=== PATIENT | male | born 1945 | race Caucasian/White ===

== ENCOUNTER 2017-07-08 06:11 | Inpatient (IN) | payer MEDICARE ==
[~2017-07-08] VITALS: Ht 185.4 cm; Wt 79.9 kg
[2017-07-08] VITALS (13 sets, daily range): BP systolic 116–198; BP diastolic 79–101; PULSE 61–95; RESP 16–22; TEMP 96.7–98.6; O2SAT 91–97
[~2017-07-08 06:11] MED LIST: ALBU0.086 INH; ALBU6.7H INH; AMLO10 PO; DOXY100T PO; HYDR12.56 PO; LISI-366 PO; PRED20 PO; TERA2CAP3 PO; TOPR25TA2 PO; ZITHTAB6 PO
--- NOTE | 2017-07-08 06:29 | PD ---
HPI Chief Complaint: Respiratory Symptoms Time Seen by Provider: 06:24 Travel History International Travel<30 days: No Contact w/Intl Traveler<30days: No Traveled to known affect area: No History of Present Illness HPI The patient is a 71-year-old male with a history of bronchitis starting back in 2010. He did fairly well until June 18 when he is exposed to dust from the ground on a project he was working on. He does not smoke. He complains of increasing shortness of breath since 18 June. His primary care physician. Moore Zithromax and doxycycline without any relief. He has been using a Proventil HFA without any relief. He is been put on prednisone 20 mg orally every day without relief. He states he is getting worse. He denies any history of congestive heart failure. He denies any chest pain. PFSH Past Medical History Blood Disorders: No Cancer: No Cardiovascular Problems: Yes High Cholesterol: Yes Cerebrovascular Accident: Yes Diminished Hearing: No Endocrine: No Genitourinary: No Hypertension: Yes Immune Disorder: No Musculoskeletal: Yes Neurologic: Yes Psychiatric: No Respiratory: No ?: Not Past Surgical History AICD: No Joint Replacement: No Pacemaker: No Other Surgery: No Social History Alcohol Use: No Tobacco Use: Yes Substance Use: No Allergies-Medications (Allergen,Severity, Reaction): Coded Allergies: cephalexin (Verified Allergy, Severe, Anaphylaxis, 07/08/17) Reported Meds & Prescriptions Reported Meds & Active Scripts Active Reported Terazosin (Terazosin HCl) 2 Mg Cap 2 Mg PO HS Metoprolol Succinate ER 24 HR (Metoprolol Succinate) 50 Mg Tab 50 Mg PO DAILY Lisinopril 20 Mg Tab 20 Mg PO DAILY Amlodipine (Amlodipine Besylate) 10 Mg Tab 10 Mg PO DAILY Review of Systems Except as stated in HPI: all other systems reviewed are Neg Physical Exam Narrative GENERAL: The patient is alert, oriented 3 in moderate respiratory distress. His pulse is 93 and blood pressure 163/101 with oximetry 94% on 4 L nasal cannula. SKIN: Focused skin assessment warm/dry. HEAD: Atraumatic. Normocephalic. EYES: Pupils equal and round. No scleral icterus. No injection or drainage. ENT: No nasal bleeding or discharge. Mucous membranes pink and moist. NECK: Trachea midline. No JVD. CARDIOVASCULAR: Regular rate and rhythm. No murmur appreciated. RESPIRATORY: No accessory muscle use. Clear to auscultation. Breath sounds equal bilaterally. GASTROINTESTINAL: Abdomen soft, non-tender, nondistended. Hepatic and splenic margins not palpable. MUSCULOSKELETAL: No obvious deformities. No clubbing. No cyanosis. No edema. NEUROLOGICAL: Awake and alert. No obvious cranial nerve deficits. Motor grossly within normal limits. Normal speech. PSYCHIATRIC: Appropriate mood and affect; insight and judgment normal. Data Data Last Documented VS Vital Signs Date Time Temp Pulse Resp B/P (MAP) Pulse Ox O2 Delivery O2 Flow Rate FiO2 07/08/17 06:57 22 94 Aerosol Mask 07/08/17 06:53 98.0 89 186/97 (126) 07/08/17 06:35 4.00 Orders Orders Complete Blood Count With Diff (07/08/17 06:24) Comprehensive Metabolic Panel (07/08/17 06:24) B-Type Natriuretic Peptide (07/08/17 06:24) Magnesium (Mg) (07/08/17 06:24) Troponin I (07/08/17 06:24) Arterial Blood Gas (Abg) (07/08/17 06:24) Urinalysis - C+S If Indicated (07/08/17 06:24) Influenzae A/B Antigen (07/08/17 06:24) Iv Access Insert/Monitor (07/08/17 06:24) Ecg Monitoring (07/08/17 06:24) Oximetry (07/08/17 06:24) Oxygen Administration (07/08/17 06:24) Chest, Pa & Lat (07/08/17 06:24) Sodium Chloride 0.9% Flush (Ns Flush) (07/08/17 06:30) Methylprednisolone So Succ Inj (Solumedr (07/08/17 06:30) Albuterol-Ipratropium Neb (Duoneb Neb) (07/08/17 06:30) Labs Laboratory Tests Test 07/08/17 06:15 07/08/17 06:43 White Blood Count 9.3 TH/MM3 Red Blood Count 4.80 MIL/MM3 Hemoglobin 14.5 GM/DL Hematocrit 44.7 % Mean Corpuscular Volume 93.0 FL Mean Corpuscular Hemoglobin 30.2 PG Mean Corpuscular Hemoglobin Concent 32.5 % Red Cell Distribution Width 13.1 % Platelet Count 161 TH/MM3 Mean Platelet Volume 7.8 FL Neutrophils (%) (Auto) 79.7 % Lymphocytes (%) (Auto) 14.0 % Monocytes (%) (Auto) 5.8 % Eosinophils (%) (Auto) 0.0 % Basophils (%) (Auto) 0.5 % Neutrophils # (Auto) 7.5 TH/MM3 Lymphocytes # (Auto) 1.3 TH/MM3 Monocytes # (Auto) 0.5 TH/MM3 Eosinophils # (Auto) 0.0 TH/MM3 Basophils # (Auto) 0.0 TH/MM3 CBC Comment DIFF FINAL Differential Comment Blood Gas Puncture Site RT RADIAL Blood Gas Patient Temperature 98.6 Blood Gas HCO3 28 mmol/L Blood Gas Base Excess 5.1 mmol/L Blood Gas Oxygen Saturation 84 % Arterial Blood pH 7.52 Arterial Blood Partial Pressure CO2 34 mmHG Arterial Blood Partial Pressure O2 53 mmHG Arterial Blood Oxygen Content 16.3 Vol % Arterial Blood Carboxyhemoglobin 2.4 % Arterial Blood Methemoglobin 1.1 % Blood Gas Hemoglobin 13.7 G/DL Oxygen Delivery Device ROOM AIR Blood Gas Inspired Oxygen 21 % [facility] Medical Decision Making Medical Screen Exam Complete: Yes Emergency Medical Condition: Yes Medical Record Reviewed: Yes Interpretation(s) The patient's blood gases show a hypoxemia. The influenza A/B antigen is negative for flu a and flu B antigen. Differential Diagnosis Bronchitis, hypoxemia, pneumonia, Narrative Course The patient is transferred to Dr. Rand at this time. The patient will be admitted for hypoxemia. The chest x-ray is not back yet. Kemal Stovall MD Jul 08, 2017 06:29
[2017-07-08] MEDS ORDERED: METO1TAB9 PO (06:30)
[2017-07-08] MEDS ORDERED: LISI-515 PO (06:30)
[2017-07-08] MEDS ORDERED: methylPREDNISolone SOD SUCC 125 MG/2 ML VIAL IV PUSH ONE (06:30)
[2017-07-08] MEDS ORDERED: TERA2CAP3 PO (06:30)
[2017-07-08] MEDS ORDERED: SODIUM CHLORIDE 0.9% FLUSH 10 ML FLUSH IVF PRN (06:30)
[2017-07-08] MEDS ORDERED: AMLO10TA2 PO (06:30)
[2017-07-08] MEDS: RESP: ALBUTEROL 2.5 MG/IPRATROPIUM 0.5 MG NEB (SCH) INH ×5 (06:33→19:45)
[2017-07-08 07:10] LABS: AUTOMATED NEUTROPHIL # 7.5 TH/MM3 (1.8-7.7); BASOPHIL % 0.5 % (0.0-2.0); HEMATOCRIT 44.7 % (39.0-51.0); HEMOGLOBIN 14.5 GM/DL (13.0-17.0); LYMPHOCYTE # 1.3 TH/MM3 (1.0-4.8); MEAN CORPUSCULAR HEMOGLOBIN 30.2 PG (27.0-34.0); MEAN CORPUSCULAR HGB CONC 32.5 % (32.0-36.0); MEAN PLATELET VOLUME 7.8 FL (7.0-11.0); MONO % 5.8 % (0.0-8.0); MONOCYTE # 0.5 TH/MM3 (0-0.9); NEUT % 79.7 % (16.0-70.0); PLATELET COUNT 161 TH/MM3 (150-450); RED CELL DISTRIBUTION WIDTH 13.1 % (11.6-17.2); WHITE BLOOD COUNT 9.3 TH/MM3 (4.0-11.0)
[2017-07-08 07:17] LABS: CHLORIDE 106 MEQ/L (98-107); SODIUM (NA) 143 MEQ/L (136-145)
[2017-07-08 07:20] LABS: CALCIUM 8.8 MG/DL (8.5-10.1)
[2017-07-08 07:21] LABS: ALBUMIN 3.4 GM/DL (3.4-5.0); BICARBONATE 28.2 MEQ/L (21.0-32.0); BLOOD UREA NITROGEN 28 MG/DL (7-18); GLUCOSE,RANDOM 84 MG/DL (74-106); MAGNESIUM 2.2 MG/DL (1.5-2.5)
[2017-07-08 07:24] LABS: ALT (GPT) 29 U/L (12-78); AST (GOT) 42 U/L (15-37); GLOMERULAR FILTRATION RATE 60 ML/MIN (>89)
[2017-07-08 07:25] LABS: TOTAL BILIRUBIN ADULT 0.9 MG/DL (0.2-1.0); TOTAL PROTEIN 6.8 GM/DL (6.4-8.2)
[2017-07-08 07:26] LABS: ALKALINE PHOSPHATASE 78 U/L (45-117)
[2017-07-08 07:29] LABS: TROPONIN I 0.03 NG/ML (0.02-0.05)
--- NOTE | 2017-07-08 08:17 | RADRPT ---
EXAM DATE/TIME: 07/08/2017 06:29 [facility] COMPARISON: No previous studies available for comparison. INDICATIONS : Short of breath MEDICAL HISTORY : None. SURGICAL HISTORY : None. ENCOUNTER: Initial ACUITY: 1 week PAIN SCORE: 0/10 LOCATION: Bilateral chest FINDINGS: PA and lateral views of the chest. Focal 2 cm density in the left lung base seen only on the frontal view. The lungs are otherwise clear. Cardiomediastinal silhouette within normal limits. No evidence o f pleural effusion or pneumothorax. CONCLUSION: Faint nodular density left lung base. Recommend chest CT without contrast evaluate for pu lmonary nodule. Sean Luis MD on July 08, 2017 at 8:11 Board Certified Radiologist. This report was verified electronically.
--- NOTE | 2017-07-08 08:40 | PD ---
Physical Exam Date Seen by Provider: Jul 08, 2017 Time Seen by Provider: 07:00 Narrative Patient signed out to me at [address] Stovall, here because of all wheezing and shortness of breath, not doing well after full therapy by primary care doctor including antibiotics 2. He is having low saturations after being treated with 3 nebulizers and Solu-Medrol, plan was for him to be admitted. Laboratory Tests Test 07/08/17 06:15 07/08/17 06:43 07/08/17 08:25 Neutrophils (%) (Auto) 79.7 % (16.0-70.0) Blood Urea Nitrogen 28 MG/DL (7-18) Aspartate Amino Transf (AST/SGOT) 42 U/L (15-37) Estimat Glomerular Filtration Rate 60 ML/MIN (>89) B-Type Natriuretic Peptide 114 PG/ML (0-100) Blood Gas HCO3 28 mmol/L (22-26) Blood Gas Base Excess 5.1 mmol/L (-2-2) Blood Gas Oxygen Saturation 84 % (90-100) Arterial Blood pH 7.52 (7.380-7.420) Arterial Blood Partial Pressure CO2 34 mmHG (38-42) Arterial Blood Partial Pressure O2 53 mmHG (61-120) Last 24 hours Impressions Chest X-Ray 07/08/17623 Signed Impressions: Service Date/Time: Saturday, July 08, 2017 06:29 - CONCLUSION: Faint nodular density left lung base. Recommend chest CT without contrast evaluate for pulmonary nodule. Sean Luis MD Case was discussed with Dr. Ty for admission. Data Data Last Documented VS Vital Signs Date Time Temp Pulse Resp B/P (MAP) Pulse Ox O2 Delivery O2 Flow Rate FiO2 07/08/17 08:13 87 20 198/87 (124) 92 Nasal Cannula 07/08/17 08:11 4.00 07/08/17 06:53 98.0 Orders Orders Complete Blood Count With Diff (07/08/17 06:24) Comprehensive Metabolic Panel (07/08/17 06:24) B-Type Natriuretic Peptide (07/08/17 06:24) Magnesium (Mg) (07/08/17 06:24) Troponin I (07/08/17 06:24) Arterial Blood Gas (Abg) (07/08/17 06:24) Urinalysis - C+S If Indicated (07/08/17 06:24) Influenzae A/B Antigen (07/08/17 06:24) Iv Access Insert/Monitor (07/08/17 06:24) Ecg Monitoring (07/08/17 06:24) Oximetry (07/08/17 06:24) Oxygen Administration (07/08/17 06:24) Chest, Pa & Lat (07/08/17 06:24) Sodium Chloride 0.9% Flush (Ns Flush) (07/08/17 06:30) Methylprednisolone So Succ Inj (Solumedr (07/08/17 06:30) Albuterol-Ipratropium Neb (Duoneb Neb) (07/08/17 06:30) Ct Thorax/ Chest Wo Iv Contras (07/08/17 08:27) Admit Order (Ed Use Only) (07/08/17 08:38) Labs Laboratory Tests Test 07/08/17 06:15 07/08/17 06:43 07/08/17 08:25 White Blood Count 9.3 TH/MM3 Red Blood Count 4.80 MIL/MM3 Hemoglobin 14.5 GM/DL Hematocrit 44.7 % Mean Corpuscular Volume 93.0 FL Mean Corpuscular Hemoglobin 30.2 PG Mean Corpuscular Hemoglobin Concent 32.5 % Red Cell Distribution Width 13.1 % Platelet Count 161 TH/MM3 Mean Platelet Volume 7.8 FL Neutrophils (%) (Auto) 79.7 % Lymphocytes (%) (Auto) 14.0 % Monocytes (%) (Auto) 5.8 % Eosinophils (%) (Auto) 0.0 % Basophils (%) (Auto) 0.5 % Neutrophils # (Auto) 7.5 TH/MM3 Lymphocytes # (Auto) 1.3 TH/MM3 Monocytes # (Auto) 0.5 TH/MM3 Eosinophils # (Auto) 0.0 TH/MM3 Basophils # (Auto) 0.0 TH/MM3 CBC Comment DIFF FINAL Differential Comment Blood Urea Nitrogen 28 MG/DL Creatinine 1.20 MG/DL Random Glucose 84 MG/DL Total Protein 6.8 GM/DL Albumin 3.4 GM/DL Calcium Level 8.8 MG/DL Magnesium Level 2.2 MG/DL Alkaline Phosphatase 78 U/L Aspartate Amino Transf (AST/SGOT) 42 U/L Alanine Aminotransferase (ALT/SGPT) 29 U/L Total Bilirubin 0.9 MG/DL Sodium Level 143 MEQ/L Potassium Level 3.8 MEQ/L Chloride Level 106 MEQ/L Carbon Dioxide Level 28.2 MEQ/L Anion Gap 9 MEQ/L Estimat Glomerular Filtration Rate 60 ML/MIN Troponin I 0.03 NG/ML B-Type Natriuretic Peptide 114 PG/ML Blood Gas Puncture Site RT RADIAL Blood Gas Patient Temperature 98.6 Blood Gas HCO3 28 mmol/L Blood Gas Base Excess 5.1 mmol/L Blood Gas Oxygen Saturation 84 % Arterial Blood pH 7.52 Arterial Blood Partial Pressure CO2 34 mmHG Arterial Blood Partial Pressure O2 53 mmHG Arterial Blood Oxygen Content 16.3 Vol % Arterial Blood Carboxyhemoglobin 2.4 % Arterial Blood Methemoglobin 1.1 % Blood Gas Hemoglobin 13.7 G/DL Oxygen Delivery Device ROOM AIR Blood Gas Inspired Oxygen 21 % [facility] Medical Record Reviewed: Yes Supervised Visit with ROBERT: No Diagnosis Primary Impression: COPD exacerbation Admitting Information Admitting Physician Requests: Admit Zulay Carlos MD Jul 08, 2017 08:40
[2017-07-08 08:45] LABS: BILIRUBIN, URINE NEG (NEG); BLOOD, URINE SMALL (NEG); GLUCOSE,URINE NEG (NEG); KETONE, URINE NEG (NEG); NITRITE,URINE NEG (NEG); URINE LEUKOCYTE ESTERASE NEG (NEG)
[2017-07-08 09:00] LABS: SQUAMOUS EPITHELIAL CELL URINE 0-5 /hpf (0-5); URINE COLOR YELLOW (YELLW/STRAW)
[2017-07-08] MEDS ORDERED: methylPREDNISolone SOD SUCC 125 MG/2 ML VIAL IV PUSH SCH (09:00)
[2017-07-08] MEDS: ENOXAPARIN SODIUM 40 MG/0.4 ML SYRINGE SQ SCH (09:22)
[2017-07-08] MEDS: SODIUM CHLORIDE 0.9% FLUSH 10 ML FLUSH IV FLUSH SCH ×2 (09:23→20:45)
--- NOTE | 2017-07-08 09:28 | RADRPT ---
EXAM DATE/TIME: 07/08/2017 08:41 [facility] COMPARISON: CHEST PA & LAT, July 08, 2017, 6:29. INDICATIONS : Short of breath. Abnormal chest xray. RADIATION DOSE: 11.46 CTDIvol (mGy) MEDICAL HISTORY : Cerebrovascular disease. Hypertension. SURGICAL HISTORY : None. ENCOUNTER: Initial ACUITY: 1 week PAIN SCALE: 0/10 LOCATION: chest TECHNIQUE: Volumetric scanning of the chest was performed. Using automated exposure control and adjustment of t he mA and/or kV according to patient size, radiation dose was kept as low as reasonably achievable to obtain optimal diagnostic quality images. DICOM format image data is available electronically for r eview and comparison. Follow-up recommendations for detected pulmonary nodules are based at a minimum on nodule size and pa tient risk factors according to Fleischner Society Guidelines. FINDINGS: LUNGS: Moderate severity bilateral pulmonary parenchymal emphysema with upper lobe predominance. Bilateral i nferior lower lobe atelectasis. Linear opacity in the posterior left upper lobe indicating atelectasi s or scarring. Mild bronchiectasis in the lingula. No nodules or masses to correlate with the asymmet ry identified on chest x-ray in the left lower lung. This likely represented overlapping soft tissue and osseous densities PLEURAE: There is no pleural thickening or pleural effusion. MEDIASTINUM: Diffuse aortic calcification. Coronary artery calcification. Trace pericardial effusion. No enlarged lymph nodes. AXILLAE: Within normal limits. No lymphadenopathy. MUSCULOSKELETAL: Within normal limits for patient age. MISCELLANEOUS: The visualized upper abdominal organs demonstrate no acute abnormality. CONCLUSION: 1. No pulmonary nodule or mass in the region of chest x-ray asymmetry. Chest x-ray finding likely rep resented summation of osseous and chest wall soft tissue densities. 2. Moderate severity pulmonary emphysema. 3. Bilateral inferior lower lobe atelectasis. 4. Mild lingular bronchiectasis. Sean Luis MD on July 08, 2017 at 9:17 Board Certified Radiologist. This report was verified electronically.
[2017-07-08] MEDS: LEVOFLOXACIN 750 MG PREMIX INJ 150 ML IV SCH (10:29)
[2017-07-08] MEDS ORDERED: ZITHTAB PO (10:30)
[2017-07-08] MEDS ORDERED: PRED20 PO (10:30)
[2017-07-08] MEDS: methylPREDNISolone SOD SUCC 125 MG/2 ML VIAL IV PUSH SCH ×2 (12:22→17:51)
--- NOTE | 2017-07-08 15:09 | HHI.HP ---
HPI Service [facility] Primary Care Physician Weston Duggan M.D. Admission Diagnosis COPD exacerbation Diagnoses: (1) COPD exacerbation Diagnosis: Principal Chief Complaint: Shortness of breath Travel History International Travel<30 Days: No Contact w/Intl Traveler <30 Da: No Traveled to Known Affected Are: No History of Present Illness This is a pleasant 71-year-old male patient with a known medical history of hypercholesterolemia and hypertension who presented to the ED with complaints of worsening shortness of breath patient states that he has not been diagnosed with COPD but has admitted to history of bronchitis in 2000. He states that during the last few days he's been experiencing worsening shortness of breath during the past few days and called his PCP, Dr. Duggan, who prescribed him a Z-Franco, doxycycline, prednisone and Proventil inhaler which did not provide patient with any relief of shortness of breath. Patient also complains of nonproductive cough. He does state that the symptoms started roughly around Christmastime when he was working on a project at home and exposed to find best on the ground. Denies any recent fever, chills, chest pain, abdominal pain, nausea, vomiting, diarrhea, or dysuria. Review of Systems Constitutional: DENIES: Fever, Chills Eyes: DENIES: Blurred vision, Diplopia Respiratory: COMPLAINS OF: Cough, Sputum production, Shortness of breath Cardiovascular: DENIES: Chest pain, Palpitations Gastrointestinal: DENIES: Abdominal pain, Constipation, Diarrhea, Nausea, Vomiting Musculoskeletal: DENIES: Joint pain Hematologic/lymphatic: DENIES: Bruising Psychiatric: DENIES: Anxiety Except as stated in HPI: all other systems reviewed are Neg Past Family Social History Past Medical History Hyperlipidemia Hypertension Past Surgical History Hernia repair Reported Medications Active Reported Zithromax Z-Franco (Azithromycin) 250 Mg Dspk 250 Mg PO DIRECTED 500 MG (2 tabs) day 1, then 1 tab days 2-5. Prednisone 20 Mg Tab 20 Mg PO DIRECTED 40 MG twice a day x 3 days, then 20 MG daily x 3 days, then 10 MG daily x 3 days Terazosin (Terazosin HCl) 2 Mg Cap 2 Mg PO HS Metoprolol Succinate ER 24 HR (Metoprolol Succinate) 50 Mg Tab 50 Mg PO DAILY Lisinopril 20 Mg Tab 20 Mg PO DAILY Amlodipine (Amlodipine Besylate) 10 Mg Tab 10 Mg PO DAILY Allergies: Coded Allergies: cephalexin (Verified Allergy, Severe, Anaphylaxis, 07/08/17) Active Ordered Medications Current Medications Medications (Trade) Dose Ordered Sig/Maulik Route Start Time Stop Time Status Last Admin (NS Flush) 2 ml BID IV FLUSH 07/08/17 09:00 07/08/17 09:23 (NS Flush) 2 ml UNSCH PRN IV FLUSH 07/08/17 09:00 (Duoneb Neb) 1 ampule Q6HR WHILE AWAKE NEB INH 07/08/17 14:00 07/08/17 13:38 (Albuterol Neb) 2.5 mg Q2HR NEB PRN INH 07/08/17 09:00 Levofloxacin/ Dextrose 150 ml @ 100 mls/hr Q24H IV 07/08/17 11:00 07/08/17 10:29 (Lovenox Inj) 40 mg Q24H SQ 07/08/17 09:00 07/08/17 09:22 (SoluMEDROL INJ) 60 mg Q6HR IV PUSH 07/08/17 12:00 07/08/17 12:22 Family History He should denies any family medical history. Social History Patient does admit to smoking one cigar a week roughly all his life. Denies any alcohol or illicit drug use. Physical Exam Vital Signs Vital Signs Date Time Temp Pulse Resp B/P (MAP) Pulse Ox O2 Delivery O2 Flow Rate FiO2 07/08/17 14:00 98.0 92 16 159/85 (109) 91 07/08/17 12:52 07/08/17 12:26 88 16 159/79 (105) 93 Nasal Cannula 3.50 07/08/17 11:51 Nasal Cannula 3.50 07/08/17 10:50 98.3 92 18 161/82 (108) 94 Nasal Cannula 3.50 07/08/17 10:40 95 20 116/80 (92) 95 Nasal Cannula 4.00 07/08/17 08:57 90 20 179/87 (117) 93 Nasal Cannula 4.00 07/08/17 08:13 87 20 198/87 (124) 92 Nasal Cannula 07/08/17 08:11 92 Nasal Cannula 4.00 07/08/17 06:57 22 94 Aerosol Mask 07/08/17 06:53 98.0 89 22 186/97 (126) 94 Aerosol Mask 07/08/17 06:35 94 Nasal Cannula 4.00 07/08/17 06:34 94 4.00 07/08/17 06:30 84 24 94 4.00 07/08/17 06:18 97.8 93 22 163/101 (121) 97 Physical Exam GENERAL: This is a well-nourished, well-developed patient, on supplemental O2 with apparent shortness of breath with exertion. SKIN: No rashes, ecchymoses or lesions. Warm and dry. HEAD: Atraumatic. Normocephalic. EYES: Pupils equal round and reactive. Extraocular motions intact. No scleral icterus. No injection or drainage. ENT: Nose without bleeding, purulent drainage or septal hematoma. Throat without erythema, tonsillar hypertrophy or exudate. Uvula midline. Airway patent. NECK: Trachea midline. No JVD. Supple. CARDIOVASCULAR: Regular rate and rhythm without murmurs, gallops, or rubs. RESPIRATORY: Diffuse expiratory wheezing in posterior lung page. Breath sounds equal bilaterally. No rales, or rhonchi. GASTROINTESTINAL: Abdomen soft, non-tender, nondistended. No guarding. MUSCULOSKELETAL: Extremities without clubbing, cyanosis, or edema. No joint tenderness, effusion, or edema noted. NEUROLOGICAL: Awake and alert. Cranial nerves II through XII intact. Motor and sensory grossly within normal limits. Five out of 5 muscle strength in all muscle groups. Normal speech. Laboratory Laboratory Tests Test 07/08/17 06:15 07/08/17 06:43 07/08/17 08:25 White Blood Count 9.3 Red Blood Count 4.80 Hemoglobin 14.5 Hematocrit 44.7 Mean Corpuscular Volume 93.0 Mean Corpuscular Hemoglobin 30.2 Mean Corpuscular Hemoglobin Concent 32.5 Red Cell Distribution Width 13.1 Platelet Count 161 Mean Platelet Volume 7.8 Neutrophils (%) (Auto) 79.7 Lymphocytes (%) (Auto) 14.0 Monocytes (%) (Auto) 5.8 Eosinophils (%) (Auto) 0.0 Basophils (%) (Auto) 0.5 Neutrophils # (Auto) 7.5 Lymphocytes # (Auto) 1.3 Monocytes # (Auto) 0.5 Eosinophils # (Auto) 0.0 Basophils # (Auto) 0.0 CBC Comment DIFF FINAL Differential Comment Blood Urea Nitrogen 28 Creatinine 1.20 Random Glucose 84 Total Protein 6.8 Albumin 3.4 Calcium Level 8.8 Magnesium Level 2.2 Alkaline Phosphatase 78 Aspartate Amino Transf (AST/SGOT) 42 Alanine Aminotransferase (ALT/SGPT) 29 Total Bilirubin 0.9 Sodium Level 143 Potassium Level 3.8 Chloride Level 106 Carbon Dioxide Level 28.2 Anion Gap 9 Estimat Glomerular Filtration Rate 60 Troponin I 0.03 B-Type Natriuretic Peptide 114 Blood Gas Puncture Site RT RADIAL Blood Gas Patient Temperature 98.6 Blood Gas HCO3 28 Blood Gas Base Excess 5.1 Blood Gas Oxygen Saturation 84 Arterial Blood pH 7.52 Arterial Blood Partial Pressure CO2 34 Arterial Blood Partial Pressure O2 53 Arterial Blood Oxygen Content 16.3 Arterial Blood Carboxyhemoglobin 2.4 Arterial Blood Methemoglobin 1.1 Blood Gas Hemoglobin 13.7 Oxygen Delivery Device ROOM AIR Blood Gas Inspired Oxygen 21 Urine Collection Type CLEAN CATCH Urine Color YELLOW Urine Turbidity CLEAR Urine pH 6.0 Urine Specific [place] 1.026 Urine Protein TRACE Urine Glucose (UA) NEG Urine Ketones NEG Urine Occult Blood SMALL Urine Nitrite NEG Urine Bilirubin NEG Urine Leukocyte Esterase NEG Urine RBC 10-14 Urine Squamous Epithelial Cells 0-5 Microscopic Urinalysis Comment CULT NOT INDICATED Urine Collection Time 08:25 Date/Time Source Procedure Growth Status 07/08/17 07:00 Nasal Aspirate Influenza Types A,B Antigen (EMILIE) - Final NEGATIVE FOR FLU A AND B ANTIGEN.... Complete Result Diagram: 07/08/1761407/08/17614 Imaging Last Impressions Chest CT 07/08/17826 Signed Impressions: Service Date/Time: Saturday, July 08, 2017 08:41 - CONCLUSION: 1. No pulmonary nodule or mass in the region of chest x-ray asymmetry. Chest x-ray finding likely represented summation of osseous and chest wall soft tissue densities. 2. Moderate severity pulmonary emphysema. 3. Bilateral inferior lower lobe atelectasis. 4. Mild lingular bronchiectasis. Sean Luis MD Chest X-Ray 07/08/17 0624 Signed Impressions: Service Date/Time: Saturday, July 08, 2017 06:29 - CONCLUSION: Faint nodular density left lung base. Recommend chest CT without contrast evaluate for pulmonary nodule. Sean Luis MD Septic Shock Reassessment Septic shock perfusion: reassessment completed Caprini VTE Risk Assessment Caprini VTE Risk Assessment: Mod/High Risk (score >= 2) Caprini Risk Assessment Model Point Value = 1 Point Value = 2 Point Value = 3 Point Value = 5 Age 41-60 Minor surgery BMI > 25 kg/m2 Swollen legs Varicose veins or History of unexplained or recurrent spontaneous Oral contraceptives or hormone replacement Sepsis (< 1 month) Serious lung disease, including pneumonia (< 1 month) Abnormal pulmonary function Acute myocardial infarction Congestive heart failure (< 1 month) History of inflammatory bowel disease Medical patient at bed rest Age 61-74 Arthroscopic surgery Major open surgery (> 45 min) Laparoscopic surgery (> 45 min) Malignancy Confined to bed (> 72 hours) Immobilizing plaster cast Central venous access Age >= 75 History of VTE Family history of VTE Factor V Leiden Prothrombin [id number] Lupus anticoagulant Anticardiolipin antibodies Elevated serum homocysteine Heparin-induced thrombocytopenia Other congenital or acquired thrombophilia Stroke (< 1 month) Elective arthroplasty Hip, pelvis, or leg fracture Acute spinal cord injury (< 1 month) Prophylaxis Regimen Total Risk Factor Score Risk Level Prophylaxis Regimen 0-1 Low Early ambulation 2 Moderate Order ONE of the following: *Sequential Compression Device (SCD) *Heparin 5000 units SQ BID 3-4 Higher Order ONE of the following medications: *Heparin 5000 units SQ TID *Enoxaparin/Lovenox 40 mg SQ daily (WT < 150 kg, CrCl > 30 mL/min) *Enoxaparin/Lovenox 30 mg SQ daily (WT < 150 kg, CrCl > 10-29 mL/min) *Enoxaparin/Lovenox 30 mg SQ BID (WT < 150 kg, CrCl > 30 mL/min) AND/OR *Sequential Compression Device (SCD) 5 or more Highest Order ONE of the following medications: *Heparin 5000 units SQ TID (Preferred with Epidurals) *Enoxaparin/Lovenox 40 mg SQ daily (WT < 150 kg, CrCl > 30 mL/min) *Enoxaparin/Lovenox 30 mg SQ daily (WT < 150 kg, CrCl > 10-29 mL/min) *Enoxaparin/Lovenox 30 mg SQ BID (WT < 150 kg, CrCl > 30 mL/min) AND *Sequential Compression Device (SCD) Assessment and Plan Problem List: (1) COPD exacerbation ICD Code: J44.1 - Chronic obstructive pulmonary disease with (acute) exacerbation Status: Acute Plan: vs URI with hypoxia vs bronchiectasis Patient denies any history of COPD. CT chest reviewed showing no pulmonary nodule or mass in the region of chest x- ray asymmetry. Chest x-ray finding likely represented summation of osseous and chest wall soft tissue densities. Moderate severity pulmonary emphysema. Bilateral inferior lower lobe atelectasis. Mild lingular bronchiectasis Blood gas was performed on presentation, pH7.52;O2 sat 95%, pO2 53, pCo2 34, HCO3 28. Continue DuoNeb's scheduled and when necessary for wheezing. Continue IV Levaquin. Supplemental O2 as needed. Is currently on 2 L nasal cannula. Influenza negative. UA negative. CBC and BMP reviewed, essentially unremarkable. No signs of infection. Monitor fever. Supportive care. (2) Hypertension ICD Code: I10 - Essential (primary) hypertension Plan: BP elevated on presentation, systolic in the 180s. We'll continue home medications. Monitor BP trends. DVT prophylaxis: SCDs. Lovenox. Ashwini Weinberg Jul 08, 2017 15:09
[2017-07-08] MEDS ORDERED: ACETAMINOPHEN 325 MG TAB PO PRN (20:30)
[2017-07-08] MEDS: TERAZOSIN HCL 1 MG CAP PO SCH (20:44)
[2017-07-08] MEDS ORDERED: ACETAMINOPHEN/HYDROcodone 325 MG/5 MG TAB PO ONE (23:45)
[2017-07-09] VITALS (16 sets, daily range): BP systolic 104–184; BP diastolic 57–90; PULSE 71–108; RESP 15–32; TEMP 96.1–97.6; O2SAT 89–97
[2017-07-09] MEDS: SODIUM CHLORIDE 0.9% FLUSH 10 ML FLUSH IV FLUSH PRN ×2 (00:14→05:38)
[2017-07-09] MEDS: methylPREDNISolone SOD SUCC 125 MG/2 ML VIAL IV PUSH SCH ×4 (00:14→18:08)
[2017-07-09] MEDS: RESP: ALBUTEROL 2.5 MG/3 ML NEB (PRN) INH (06:29)
[2017-07-09] MEDS: RESP: ALBUTEROL 2.5 MG/IPRATROPIUM 0.5 MG NEB (SCH) INH ×3 (07:52→19:48)
[2017-07-09] MEDS ORDERED: PNEUMOCOCCAL POLYVALENT INJ 25 MCG/0.5 ML SYR IM ONE (10:00)
[2017-07-09] MEDS: LISINOPRIL 20 MG TAB PO SCH (10:19)
[2017-07-09] MEDS: ENOXAPARIN SODIUM 40 MG/0.4 ML SYRINGE SQ SCH (10:19)
[2017-07-09] MEDS: SODIUM CHLORIDE 0.9% FLUSH 10 ML FLUSH IV FLUSH SCH ×2 (10:20→21:25)
--- NOTE | 2017-07-09 11:54 | HHI.PR ---
Subjective Remarks Follow-up COPD exacerbation. Patient seen and examined, lying in bed on supplemental O2, 5 L nasal cannula. Patient states that he does feel a lot better today. Eating well, denies any abdominal pain, nausea or vomiting. Afebrile overnight. Denies any chest pain. Does admit to shortness of breath with exertion. Objective Vitals Vital Signs Date Time Temp Pulse Resp B/P (MAP) Pulse Ox O2 Delivery O2 Flow Rate FiO2 07/09/17 09:10 96.7 71 15 131/78 (95) 93 07/09/17 07:56 89 Nasal Cannula 4.50 07/09/17 07:50 97.1 102 20 167/87 (113) 91 07/09/17 05:30 164/90 (114) 184/90 (121) Automatic Cuff 07/09/17 04:26 07/08/17 23:24 97.4 79 16 195/88 (123) 94 07/08/17 21:44 20 07/08/17 20:59 96.7 61 20 171/83 (112) 91 07/08/17 19:45 94 Nasal Cannula 3.50 07/08/17 16:00 98.6 82 16 170/90 (116) 92 07/08/17 14:00 98.0 92 16 159/85 (109) 91 07/08/17 12:52 07/08/17 12:26 88 16 159/79 (105) 93 Nasal Cannula 3.50 I/O 07/08/17 07/08/17 07/08/17 07/09/17 07/09/17 07/09/17 07:00 15:00 23:00 07:00 15:00 23:00 Intake Total 390 ml 240 ml Output Total 400 ml Balance -10 ml 240 ml Intake Oral 240 ml 240 ml IV Total 150 ml Output Urine Total 400 ml # Voids 2 2 3 # Bowel Movements 0 0 Result Diagram: 07/08/1715 07/08/17614 Imaging Last Impressions Chest CT 07/08/1727 Signed Impressions: Service Date/Time: Saturday, July 08, 2017 08:41 - CONCLUSION: 1. No pulmonary nodule or mass in the region of chest x-ray asymmetry. Chest x-ray finding likely represented summation of osseous and chest wall soft tissue densities. 2. Moderate severity pulmonary emphysema. 3. Bilateral inferior lower lobe atelectasis. 4. Mild lingular bronchiectasis. Sean Luis MD Chest X-Ray 07/08/17 0624 Signed Impressions: Service Date/Time: Saturday, July 08, 2017 06:29 - CONCLUSION: Faint nodular density left lung base. Recommend chest CT without contrast evaluate for pulmonary nodule. Sean Luis MD Objective Remarks GENERAL: This is a well-nourished, well-developed patient, on supplemental O2 lying comfortably SKIN: No rashes, ecchymoses or lesions. Warm and dry. HEAD: Atraumatic. Normocephalic. EYES: Pupils equal round and reactive. Extraocular motions intact. No scleral icterus. No injection or drainage. ENT: Nose without bleeding, purulent drainage or septal hematoma. Throat without erythema, tonsillar hypertrophy or exudate. Uvula midline. Airway patent. NECK: Trachea midline. No JVD. Supple. CARDIOVASCULAR: Regular rate and rhythm without murmurs, gallops, or rubs. RESPIRATORY: Diffuse expiratory wheezing in posterior lung page, improved from yesterday. Breath sounds equal bilaterally. No rales, or rhonchi. GASTROINTESTINAL: Abdomen soft, non-tender, nondistended. No guarding. MUSCULOSKELETAL: Extremities without clubbing, cyanosis, or edema. No joint tenderness, effusion, or edema noted. NEUROLOGICAL: Awake and alert. Cranial nerves II through XII intact. Motor and sensory grossly within normal limits. Five out of 5 muscle strength in all muscle groups. Normal speech. A/P Problem List: (1) COPD exacerbation ICD Code: J44.1 - Chronic obstructive pulmonary disease with (acute) exacerbation Status: Acute Plan: With acute respiratory failure. vs URI with hypoxia vs bronchiectasis Patient denies any history of COPD. CT chest reviewed showing no pulmonary nodule or mass in the region of chest x- ray asymmetry. Chest x-ray finding likely represented summation of osseous and chest wall soft tissue densities. Moderate severity pulmonary emphysema. Bilateral inferior lower lobe atelectasis. Mild lingular bronchiectasis Blood gas was performed on presentation, pH7.52;O2 sat 95%, pO2 53, pCo2 34, HCO3 28. Continue DuoNeb's scheduled and when necessary for wheezing. Continue IV Levaquin. Supplemental O2 as needed. Is currently on 5 L nasal cannula. Influenza negative. UA negative. CBC and BMP reviewed, essentially unremarkable. No signs of infection. Monitor fever. Supportive care. Will consult pulmonology due to this being patient's first exacerbation and no reported underlying lung disease. Appreciate further recommendations and input. (2) Hypertension ICD Code: I10 - Essential (primary) hypertension Plan: BP elevated on presentation, systolic in the 180s. More controlled. Will continue home medications. Monitor BP trends. DVT prophylaxis: SCDs. Lovenox. Ashwini Weinberg Jul 09, 2017 11:54
[2017-07-09] MEDS: LEVOFLOXACIN 750 MG PREMIX INJ 150 ML IV SCH (12:51)
[2017-07-09] MEDS: guaiFENesin E.R. 600 MG TAB PO SCH ×2 (17:57→21:24)
[2017-07-09] MEDS: ALPRAZolam 0.5 MG TAB PO PRN (17:57)
[2017-07-09] MEDS ORDERED: CHLORHEXIDINE GLUCONATE 2 % 1 PACK (2 CLOTHS)(extra cloths) TOPICAL PRN (19:30)
[2017-07-09 19:44] LABS: CALCIUM 8.5 MG/DL (8.5-10.1)
[2017-07-09 19:45] LABS: BICARBONATE 32.4 MEQ/L (21.0-32.0)
[2017-07-09] MEDS ORDERED: IOHEXOL 350 MG/ML 10 ML VIAL (for RAD DIAG) IVCONTRAST ONE (21:17)
[2017-07-09] MEDS: TERAZOSIN HCL 1 MG CAP PO SCH (21:24)
--- NOTE | 2017-07-09 21:32 | RADRPT ---
EXAM DATE/TIME: 07/09/2017 20:57 [facility] COMPARISON: No previous studies available for comparison. INDICATIONS : Shortness of breath. Evaluate for embolism. IV CONTRAST: 75 cc Omnipaque 350 (iohexol) IV RADIATION DOSE: 14.14 CTDIvol (mGy) MEDICAL HISTORY : Cerebrovascular disease. Cardiovascular disease Emphysema. SURGICAL HISTORY : None. ENCOUNTER: Initial ACUITY: 2 days PAIN SCALE: 0/10 LOCATION: Bilateral chest TECHNIQUE: Volumetric scanning of the chest was performed using a pulmonary embolism protocol MIP images were re constructed. Using automated exposure control and adjustment of the mA and/or kV according to patien t size, radiation dose was kept as low as reasonably achievable to obtain optimal diagnostic quality images. DICOM format image data is available electronically for review and comparison. Follow-up recommendations for detected pulmonary nodules are based at a minimum on nodule size and pa tient risk factors according to Fleischner Society Guidelines. FINDINGS: PULMONARY ARTERIES: No filling defects are seen in the pulmonary arteries through the segmental level. LUNGS: Pronounced emphysematous changes bilaterally. More pronounced within the upper lobes. No infiltrate o r mass. No significant bronchiectasis. PLEURAE: There is no pleural thickening or pleural effusion. MEDIASTINUM: There is good visualization of the great vessels of the middle mediastinum. No evidence of mediastin al or hilar adenopathy/mass. Coronary artery atherosclerotic calcifications. Heart is normal in size. MUSCULOSKELETAL: Within normal limits for patient age. MISCELLANEOUS: There is a 1 cm low attenuation focus involving the subcapsular portion of segment 7 of the liver. Di rectly adjacent to this is a 5 mm lesion. Both are well circumscribed and smoothly marginated. A like ly relate to small cysts. Low-density lesions are seen involving the cortex of the upper pole the lef t kidney. These are poorly characterized and only partially visualized. CONCLUSION: 1. No acute abnormality. 2. Diffuse emphysematous changes. 3. Low-density lesions seen involving the right lobe liver likely related to small cysts. 4. Low density lesion is partially seen involving the left kidney. These are poorly characterized on this exam. Renal ultrasound could be considered on an outpatient basis to further evaluate. 5. 3.5 x 3.1 cm fusiform aneurysmal dilatation of the upper infrarenal abdominal aorta partially visu alized. Adi Benitez Jr., MD on July 09, 2017 at 21:26 Board Certified Radiologist. This report was verified electronically.
[2017-07-10] VITALS (33 sets, daily range): BP systolic 94–137; BP diastolic 62–81; PULSE 58–104; RESP 6–22; TEMP 97.4–97.9; O2SAT 87–97
[2017-07-10] MEDS: methylPREDNISolone SOD SUCC 125 MG/2 ML VIAL IV PUSH SCH ×5 (00:47→23:16)
[2017-07-10] MEDS: ALPRAZolam 0.5 MG TAB PO PRN ×3 (00:47→23:16)
[2017-07-10] MEDS: CHLORHEXIDINE GLUCONATE 2 % 1 PACK (2 CLOTHS)(taper/protocol) TOPICAL SCH ×2 (03:28→23:16)
--- NOTE | 2017-07-10 06:09 | MB ---
cc: MACARIO MORGAN,MICHELLE DATE OF CONSULTATION 07/09/2017 REQUESTING PHYSICIAN Requested by Michelle Weinberg MD REASON FOR CONSULTATION Shortness of breath. HISTORY OF PRESENT ILLNESS Mr. Navarrete is a pleasant 71-year-old male with a history of hypertension. He came to the hospital with worsening of his shortness breath for few days. He has wheezing, has some cough. No fever, chills. No night sweats. No chest pain. Denies any known history of COPD, though he has a long history of smoking. The patient was evaluated in the hospital. He had a CT scan of the chest done which shows no pulmonary nodule or mass. He has moderate history of pulmonary emphysema. His CBC shows WBC count of 9.3, hemoglobin 14.5, hematocrit 44.7, MCV 93, platelet count 161. Sodium 140, potassium 3.2, chloride 101, CO2 32, BUN 25, creatinine 1.0. PAST MEDICAL HISTORY Significant for - History of hypertension. History of hernia surgery. MEDICATIONS He is currently taking - 1. Xanax 0.5 mg. 2. Mucinex 600 mg twice a day. 3. Amlodipine 10 mg a day. 4. Lisinopril 20 mg a day. 5. Solu-Medrol 60 mg q. 6-hours. 6. Levaquin 750 mg a day. 7. Lovenox 40 mg a day. ALLERGIES ALLERGIC TO KEFLEX. SOCIAL HISTORY He is , has history of smoking cigars. Denies any alcohol use. 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 FAMILY HISTORY He has two children. REVIEW OF SYSTEMS Normally he is up, around and active. Weight is stable. No DVT or pulmonary embolism. No seizure, stroke or epilepsy. PHYSICAL EXAMINATION GENERAL: An elderly male short of breath on oxygen rebreather. VITAL SIGNS: Blood pressure 139/80, heart rate 107, respirations 22. Temperature 96.1. HEENT EXAMINATION: Generally unremarkable. NECK: Supple. JVP not raised. CHEST: No rhonchi or wheezes. CV: S1 and S2 normal. ABDOMEN: Soft. Nondistended. Bowel sounds are present. EXTREMITIES: No edema. 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 No focal deficit. LABORATORY DATA Blood gas on 6 liters nasal cannula - pH 7.54, pCO2 33, pO2 49. IMPRESSION 1. Shortness of breath with hypoxia and respiratory alkalosis, need to rule out pulmonary embolism. 2. COPD. 3. Hypertension. 4. Hypoxia. PLAN 1. Discussed with the patient he will need a CT of the chest to rule out pulmonary embolism. 2. I will continue with IV steroids and put him on partial rebreather, wean oxygen to keep the saturation 88-92%. 3. He is on subcu Lovenox. If he has PE, we will put him on a full dose of anticoagulation. 4. Further treatment will depend on the course in the hospital. Thank you Dr. Michelle Weinberg for this consult. MD KAITLYN Mireles/DINORA /7:58 PM /5:29 AM
[2017-07-10] MEDS: RESP: ALBUTEROL 2.5 MG/IPRATROPIUM 0.5 MG NEB (SCH) INH ×3 (07:27→19:22)
[2017-07-10] MEDS: ENOXAPARIN SODIUM 40 MG/0.4 ML SYRINGE SQ SCH (08:29)
[2017-07-10] MEDS: SODIUM CHLORIDE 0.9% FLUSH 10 ML FLUSH IV FLUSH SCH ×2 (08:29→19:49)
[2017-07-10] MEDS: guaiFENesin E.R. 600 MG TAB PO SCH ×2 (08:29→19:49)
[2017-07-10] MEDS: LISINOPRIL 20 MG TAB PO SCH (08:30)
[2017-07-10] MEDS: LEVOFLOXACIN 750 MG PREMIX INJ 150 ML IV SCH (11:18)
--- NOTE | 2017-07-10 11:27 | HHI.PR ---
Subjective Remarks Follow up COPD exacerbation. The patient states that he feels better today. Still with dyspnea. Required BiPAP overnight. Now on 6L nasal cannula. Objective Vitals Vital Signs Date Time Temp Pulse Resp B/P (MAP) Pulse Ox O2 Delivery O2 Flow Rate FiO2 07/10/17 10:00 78 12 115/68 (84) 91 07/10/17 09:00 104 07/10/17 09:00 104 22 94/63 (73) 87 07/10/17 08:00 97.9 82 20 137/78 (97) 88 07/10/17 08:00 93 Nasal Cannula 6.00 07/10/17 07:54 94 Nasal Cannula 6.00 07/10/17 07:05 58 13 120/71 (87) 92 07/10/17 07:00 64 07/10/17 07:00 98 Bi-Pap 5.00 40 07/10/17 05:50 94 40 07/10/17 05:15 60 13 120/71 (87) 93 07/10/17 05:13 60 13 103/66 (78) 93 07/10/17 05:00 78 07/10/17 04:14 97.5 72 22 125/81 (96) 95 07/10/17 03:30 95 40 07/10/17 03:00 84 21 100/67 (78) 97 07/10/17 03:00 62 07/10/17 02:00 74 14 106/67 (80) 97 07/10/17 01:10 83 07/10/17 01:00 74 14 106/67 (80) 97 07/10/17 00:55 96 45 07/10/17 00:00 78 17 119/79 (92) 95 07/09/17 23:00 78 17 104/65 (78) 95 07/09/17 23:00 74 07/09/17 22:00 75 07/09/17 22:00 90 17 110/67 (81) 94 07/09/17 21:45 94 50 07/09/17 21:15 100 26 140/69 (92) 94 07/09/17 21:00 94 96 07/09/17 20:45 84 18 95 07/09/17 20:30 108 32 93 07/09/17 20:07 97.6 94 24 134/57 (82) 90 07/09/17 19:50 92 Partial Rebreather 15.00 07/09/17 15:50 96.1 107 20 139/80 (99) 91 07/09/17 11:50 97.4 95 20 138/82 (100) 92 I/O 07/09/17 07/09/17 07/09/17 07/10/17 07/10/17 07/10/17 07:00 15:00 23:00 07:00 15:00 23:00 Intake Total 150 ml 300 ml Output Total 400 ml 600 ml Balance 150 ml -100 ml -600 ml Intake Oral 300 ml IV Total 150 ml Output Urine Total 400 ml 600 ml # Voids 3 2 # Bowel Movements 0 0 Result Diagram: 07/08/1715 07/09/171923 Imaging Last Impressions CT Angiography 07/09/172019 Signed Impressions: Service Date/Time: Sunday, July 09, 2017 20:57 - CONCLUSION: 1. No acute abnormality. 2. Diffuse emphysematous changes. 3. Low-density lesions seen involving the right lobe liver likely related to small cysts. 4. Low density lesion is partially seen involving the left kidney. These are poorly characterized on this exam. Renal ultrasound could be considered on an outpatient basis to further evaluate. 5. 3.5 x 3.1 cm fusiform aneurysmal dilatation of the upper infrarenal abdominal aorta partially visualized. Adi Benitez Jr., MD Chest CT 07/08/17 0827 Signed Impressions: Service Date/Time: Saturday, July 08, 2017 08:41 - CONCLUSION: 1. No pulmonary nodule or mass in the region of chest x-ray asymmetry. Chest x-ray finding likely represented summation of osseous and chest wall soft tissue densities. 2. Moderate severity pulmonary emphysema. 3. Bilateral inferior lower lobe atelectasis. 4. Mild lingular bronchiectasis. Sean Luis MD Chest X-Ray 07/08/17 0624 Signed Impressions: Service Date/Time: Saturday, July 08, 2017 06:29 - CONCLUSION: Faint nodular density left lung base. Recommend chest CT without contrast evaluate for pulmonary nodule. Sean Luis MD Objective Remarks General: No acute distress. Heart: Regular rate and rhythm. No murmur. Lungs: Poor air movement. Mild wheezes diffusely. Breathing is nonlabored. Abdomen: Soft, nontender, nondistended. Extremities: No lower extremity edema. Psych: Alert and oriented. Procedures None Urinary Catheter: No Vascular Central Line Catheter: No A/P Problem List: (1) COPD exacerbation ICD Code: J44.1 - Chronic obstructive pulmonary disease with (acute) exacerbation Status: Acute (2) Hypertension ICD Code: I10 - Essential (primary) hypertension (3) AAA (abdominal aortic aneurysm) without rupture ICD Code: I71.4 - Abdominal aortic aneurysm, without rupture Assessment and Plan 1. COPD exacerbation, respiratory failure: Required BiPAP overnight. Still on 6 L per nasal cannula. Appreciate pulmonology recommendations. Continue DuoNeb, antibiotics, supplemental oxygen, steroids. Maintain oxygen saturations 88-92%. CT pulmonary angiogram shows no evidence of pulmonary embolus. 2. Hypertension: Blood pressure well controlled. Continue current medications. 3. DVT prophylaxis: SCDs, Lovenox. 4. AAA: Small infrarenal AAA noted on CT (3.5x3.1cm). Recommend outpatient follow-up/monitoring. Discharge Planning Pending further clinical improvement. Maldonado Cuellar MD Jul 10, 2017 11:27
--- NOTE | 2017-07-10 19:14 | HHI.PR ---
Subjective Remarks 71 YOWm with COPD, sob, hypoxia CTA no PE Weaned to NC Desaturates cough, no sp Objective Vital Signs Vital Signs Date Time Temp Pulse Resp B/P (MAP) Pulse Ox O2 Delivery O2 Flow Rate FiO2 07/10/17 16:00 97.8 82 20 132/76 (94) 92 07/10/17 15:00 92 18 115/66 (82) 91 07/10/17 14:00 82 16 116/66 (83) 93 07/10/17 13:00 86 07/10/17 13:00 86 6 109/68 (82) 91 07/10/17 12:00 78 9 116/62 (80) 93 07/10/17 11:00 84 07/10/17 11:00 84 10 108/70 (83) 94 07/10/17 10:00 78 12 115/68 (84) 91 07/10/17 09:00 104 07/10/17 09:00 104 22 94/63 (73) 87 07/10/17 08:00 97.9 82 20 137/78 (97) 88 07/10/17 08:00 93 Nasal Cannula 6.00 07/10/17 07:54 94 Nasal Cannula 6.00 07/10/17 07:05 58 13 120/71 (87) 92 07/10/17 07:00 64 07/10/17 07:00 98 Bi-Pap 5.00 40 07/10/17 05:50 94 40 07/10/17 05:15 60 13 120/71 (87) 93 07/10/17 05:13 60 13 103/66 (78) 93 07/10/17 05:00 78 07/10/17 04:14 97.5 72 22 125/81 (96) 95 07/10/17 03:30 95 40 07/10/17 03:00 84 21 100/67 (78) 97 07/10/17 03:00 62 07/10/17 02:00 74 14 106/67 (80) 97 07/10/17 01:10 83 07/10/17 01:00 74 14 106/67 (80) 97 07/10/17 00:55 96 45 07/10/17 00:00 78 17 119/79 (92) 95 07/09/17 23:00 78 17 104/65 (78) 95 07/09/17 23:00 74 07/09/17 22:00 75 07/09/17 22:00 90 17 110/67 (81) 94 07/09/17 21:45 94 50 07/09/17 21:15 100 26 140/69 (92) 94 07/09/17 21:00 94 96 07/09/17 20:45 84 18 95 07/09/17 20:30 108 32 93 07/09/17 20:07 97.6 94 24 134/57 (82) 90 07/09/17 19:50 92 Partial Rebreather 15.00 I/O 07/09/17 07/09/17 07/09/17 07/10/17 07/10/17 07/10/17 07:00 15:00 23:00 07:00 15:00 23:00 Intake Total 150 ml 300 ml 600 ml Output Total 400 ml 600 ml 650 ml Balance 150 ml -100 ml -600 ml -50 ml Intake Oral 300 ml 600 ml IV Total 150 ml Output Urine Total 400 ml 600 ml 650 ml # Voids 3 2 # Bowel Movements 0 0 0 Result Diagram: 07/08/1761407/09/171923 Objective Remarks GENERAL: MBMN mild sob SKIN: Warm and dry. HEAD: Normocephalic. EYES: No scleral icterus. No injection or drainage. NECK: Supple, trachea midline. No JVD or lymphadenopathy. CARDIOVASCULAR: Regular rate and rhythm without murmurs, gallops, or rubs. RESPIRATORY: Breath sounds equal bilaterally. No accessory muscle use. GASTROINTESTINAL: Abdomen soft, non-tender, nondistended. MUSCULOSKELETAL: No cyanosis, or edema. BACK: Nontender without obvious deformity. No CVA tenderness. A/P Assessment and Plan COPD Exac Hypoxia, no PE Bronchitis HTN PLAN: Supplement 02 IV Solumedrol Cont abx SQ lovenox Anxious to go home DW pt and family at [facility] Rony Kahn MD Jul 10, 2017 19:14
[2017-07-10] MEDS: TERAZOSIN HCL 1 MG CAP PO SCH (19:49)
[2017-07-10] MEDS ORDERED: POTASSIUM CHLORIDE 25 MEQ EFFERVESCENT TAB PO ONE (20:00)
[2017-07-11] VITALS (31 sets, daily range): BP systolic 90–131; BP diastolic 50–80; PULSE 56–96; RESP 12–27; TEMP 97.5–98.4; O2SAT 91–100
[2017-07-11 04:55] LABS: AUTOMATED NEUTROPHIL # 11.4 TH/MM3 (1.8-7.7); BASOPHIL % 0.2 % (0.0-2.0); HEMATOCRIT 41.2 % (39.0-51.0); HEMOGLOBIN 13.1 GM/DL (13.0-17.0); LYMPH % 3.5 % (9.0-44.0); LYMPHOCYTE # 0.4 TH/MM3 (1.0-4.8); MEAN CORPUSCULAR HEMOGLOBIN 29.5 PG (27.0-34.0); MEAN CORPUSCULAR HGB CONC 31.8 % (32.0-36.0); MEAN PLATELET VOLUME 7.5 FL (7.0-11.0); MONOCYTE # 0.4 TH/MM3 (0-0.9); NEUT % 93.3 % (16.0-70.0); PLATELET COUNT 178 TH/MM3 (150-450); RED BLOOD COUNT 4.42 MIL/MM3 (4.50-5.90); RED CELL DISTRIBUTION WIDTH 13.1 % (11.6-17.2); WHITE BLOOD COUNT 12.2 TH/MM3 (4.0-11.0)
[2017-07-11 05:21] LABS: CALCIUM 8.4 MG/DL (8.5-10.1)
[2017-07-11 05:22] LABS: BICARBONATE 30.8 MEQ/L (21.0-32.0)
[2017-07-11 06:18] LABS: CREATININE 1.1 MG/DL (0.60-1.30)
[2017-07-11] MEDS: methylPREDNISolone SOD SUCC 125 MG/2 ML VIAL IV PUSH SCH ×2 (06:30→11:07)
[2017-07-11] MEDS: SODIUM CHLORIDE 0.9% FLUSH 10 ML FLUSH IV FLUSH PRN (06:31)
[2017-07-11] MEDS: RESP: ALBUTEROL 2.5 MG/IPRATROPIUM 0.5 MG NEB (SCH) INH ×3 (07:38→21:09)
[2017-07-11] MEDS: SODIUM CHLORIDE 0.9% FLUSH 10 ML FLUSH IV FLUSH SCH ×2 (08:38→20:41)
[2017-07-11] MEDS: LISINOPRIL 20 MG TAB PO SCH (08:38)
[2017-07-11] MEDS: guaiFENesin E.R. 600 MG TAB PO SCH ×2 (08:38→20:38)
[2017-07-11] MEDS: ENOXAPARIN SODIUM 40 MG/0.4 ML SYRINGE SQ SCH (08:38)
--- NOTE | 2017-07-11 09:42 | HHI.PR ---
Subjective Remarks Patient was seen and examined today for follow-up on acute hypoxic respiratory failure. Patient still requiring BiPAP support at night. Yesterday patient was only able to be weaned down to 4.5 L of oxygen to maintain O2 saturations. Patient is very frustrated. He would like to go home as soon as possible. I had a long discussion with the patient considering his clinical condition and possible length of stay. Objective Vital Signs Date Time Temp Pulse Resp B/P (MAP) Pulse Ox O2 Delivery O2 Flow Rate FiO2 07/11/17 09:00 84 17 101/61 (74) 92 07/11/17 08:00 96 Nasal Cannula 4.00 07/11/17 08:00 74 17 131/55 (80) 94 07/11/17 07:00 97.6 76 22 125/71 (89) 96 07/11/17 06:11 56 07/11/17 06:00 58 13 99/53 (68) 94 07/11/17 05:00 78 15 108/56 (73) 95 07/11/17 04:24 95 30 07/11/17 04:00 97.7 60 13 93/63 (73) 95 07/11/17 04:00 64 07/11/17 03:00 58 15 90/57 (68) 94 07/11/17 02:00 60 07/11/17 02:00 62 14 93/54 (67) 93 07/11/17 01:00 64 15 104/50 (68) 94 07/11/17 00:30 96 Bi-Pap 30 07/11/17 00:30 100 30 07/11/17 00:00 97.5 68 14 96/54 (68) 100 07/11/17 00:00 100 Bi-Pap 40 07/11/17 00:00 68 07/10/17 23:42 96 Bi-Pap 40 07/10/17 23:00 74 18 100/67 (78) 94 07/10/17 22:00 94 07/10/17 22:00 82 19 104/64 (77) 95 07/10/17 21:00 84 18 94/67 (76) 92 07/10/17 20:08 99 07/10/17 20:00 97.4 100 17 115/70 (85) 92 07/10/17 19:53 92 Nasal Cannula 4.00 07/10/17 19:22 92 Nasal Cannula 4.50 07/10/17 19:06 94 20 112/66 (81) 93 Manual Cuff/Palpation 07/10/17 18:00 96 15 112/76 (88) 88 07/10/17 17:00 92 07/10/17 17:00 92 18 124/72 (89) 91 07/10/17 16:00 97.8 82 20 132/76 (94) 92 07/10/17 15:00 92 18 115/66 (82) 91 07/10/17 15:00 92 07/10/17 14:00 82 16 116/66 (83) 93 07/10/17 13:00 86 07/10/17 13:00 86 6 109/68 (82) 91 07/10/17 12:00 78 9 116/62 (80) 93 07/10/17 11:00 84 07/10/17 11:00 84 10 108/70 (83) 94 07/10/17 10:00 78 12 115/68 (84) 91 I/O 07/10/17 07/10/17 07/10/17 07/11/17 07/11/17 07/11/17 07:00 15:00 23:00 07:00 15:00 23:00 Intake Total 600 ml 300 ml Output Total 600 ml 650 ml 150 ml 150 ml Balance -600 ml -50 ml 150 ml -150 ml Intake Oral 600 ml 300 ml Output Urine Total 600 ml 650 ml 150 ml 150 ml # Voids 1 1 # Bowel Movements 0 0 0 Result Diagram: 07/11/1742907/11/[address] Angiography 07/09/172019 Signed Impressions: Service Date/Time: Sunday, July 09, 2017 20:57 - CONCLUSION: 1. No acute abnormality. 2. Diffuse emphysematous changes. 3. Low-density lesions seen involving the right lobe liver likely related to small cysts. 4. Low density lesion is partially seen involving the left kidney. These are poorly characterized on this exam. Renal ultrasound could be considered on an outpatient basis to further evaluate. 5. 3.5 x 3.1 cm fusiform aneurysmal dilatation of the upper infrarenal abdominal aorta partially visualized. Adi Benitez Jr., MD Chest CT 07/08/17 0827 Signed Impressions: Service Date/Time: Saturday, July 08, 2017 08:41 - CONCLUSION: 1. No pulmonary nodule or mass in the region of chest x-ray asymmetry. Chest x-ray finding likely represented summation of osseous and chest wall soft tissue densities. 2. Moderate severity pulmonary emphysema. 3. Bilateral inferior lower lobe atelectasis. 4. Mild lingular bronchiectasis. Sean Luis MD Chest X-Ray 07/08/17 0624 Signed Impressions: Service Date/Time: Saturday, July 08, 2017 06:29 - CONCLUSION: Faint nodular density left lung base. Recommend chest CT without contrast evaluate for pulmonary nodule. Sean Luis MD Objective Remarks GENERAL: Well-developed, well-nourished, in no acute distress. alert and orientated HEENT: Head is normocephalic without any lesions or masses noted. Facial features are symmetric. Eyes: Extraocular muscles are intact. Conjunctivae were clear. NECK: Supple without any masses. Trachea midline no deviation. No JVD, CARDIAC: Regular rhythm, regular rate. S1/S2 are heard. No murmurs gallops or rubs. LUNGS: Mild expiratory wheeze noted, no rhonchi or rales. No use of accessory muscles on inspiration or expiration. ABDOMEN: Soft, nontender. Nondistended. Bowel sounds heard in all 4 quadrants. No organomegaly or masses. Negative rebound, negative guarding EXTREMITIES: No edema, pulses are equal bilaterally. No cyanosis or clubbing NEUROLOGY: Mood and affect appear appropriate. Cranial nerves II through XII grossly intact. Moving all extremities, speech is clear A/P Assessment and Plan Acute hypoxic respiratory failure, likely secondary to combination of emphysema and pneumonia CT scan does indicate moderate severity of pulmonary emphysema. Reviewing CT scans do indicate possible atelectasis and/or consolidation right upper and lower lobe Continue O2 supplementation maintain O2 sats greater than 92%. Patient requiring BiPAP 10/5 support throughout the night Continue Solu-Medrol 60 mg IV every 6 hours Duo nebs every 6 hours while awake and albuterol every 2 hours as needed, will add EZ Pap Continue incentive spirometry Continue Levaquin, change to by mouth Continue guaifenesin Pulmonology following the patient Hypertension accelerated on presentation, blood pressure improved Lisinopril and terazosin were continued Norvasc 10 mg daily was started Metoprolol not continued secondary to low blood pressure this time DVT prevention Sequential compression devices subcutaneous Lovenox Discharge Planning Discharge planning in 24-48 hours depending on patient's response to treatment and decrease in O2 demand Maldonado Stovall Jul 11, 2017 09:42
[2017-07-11] MEDS: LEVOFLOXACIN 750 MG PREMIX INJ 150 ML IV SCH (11:07)
--- NOTE | 2017-07-11 18:30 | HHI.PR ---
Subjective Remarks 71 YOWm with COPD, sob, hypoxia CTA no PE Weaned to NC cough, no sp " I feel fine, I would rather be home" On 4 lnc Used CPAP briefly Objective Vital Signs Vital Signs Date Time Temp Pulse Resp B/P (MAP) Pulse Ox O2 Delivery O2 Flow Rate FiO2 07/11/17 16:00 76 07/11/17 16:00 95 Nasal Cannula 4.00 07/11/17 16:00 97.9 86 19 108/67 (81) 92 07/11/17 15:00 80 18 111/62 (78) 94 07/11/17 14:00 96 07/11/17 14:00 86 23 102/64 (77) 92 07/11/17 13:00 96 27 116/67 (83) 92 07/11/17 12:00 97.6 90 24 99/66 (77) 94 07/11/17 12:00 92 Nasal Cannula 4.00 07/11/17 12:00 82 07/11/17 11:00 86 23 108/63 (78) 92 07/11/17 10:00 86 07/11/17 10:00 86 12 90/62 (71) 93 07/11/17 09:00 84 17 101/61 (74) 92 07/11/17 08:00 96 Nasal Cannula 4.00 07/11/17 08:00 74 17 131/55 (80) 94 07/11/17 08:00 74 07/11/17 07:45 92 Nasal Cannula 4.50 07/11/17 07:00 97.6 76 22 125/71 (89) 96 07/11/17 06:11 56 07/11/17 06:00 58 13 99/53 (68) 94 07/11/17 05:00 78 15 108/56 (73) 95 07/11/17 04:24 95 30 07/11/17 04:00 97.7 60 13 93/63 (73) 95 07/11/17 04:00 64 07/11/17 03:00 58 15 90/57 (68) 94 07/11/17 02:00 60 07/11/17 02:00 62 14 93/54 (67) 93 07/11/17 01:00 64 15 104/50 (68) 94 07/11/17 00:30 96 Bi-Pap 30 07/11/17 00:30 100 30 07/11/17 00:00 97.5 68 14 96/54 (68) 100 07/11/17 00:00 100 Bi-Pap 40 07/11/17 00:00 68 07/10/17 23:42 96 Bi-Pap 40 07/10/17 23:00 74 18 100/67 (78) 94 07/10/17 22:00 94 07/10/17 22:00 82 19 104/64 (77) 95 07/10/17 21:00 84 18 94/67 (76) 92 07/10/17 20:08 99 07/10/17 20:00 97.4 100 17 115/70 (85) 92 07/10/17 19:53 92 Nasal Cannula 4.00 07/10/17 19:22 92 Nasal Cannula 4.50 07/10/17 19:06 94 20 112/66 (81) 93 Manual Cuff/Palpation I/O 07/10/17 07/10/17 07/10/17 07/11/17 07/11/17 07/11/17 06:59 14:59 22:59 06:59 14:59 22:59 Intake Total 600 ml 300 ml 750 ml Output Total 600 ml 650 ml 150 ml 150 ml 375 ml Balance -600 ml -50 ml 150 ml -150 ml 375 ml Intake Oral 600 ml 300 ml 600 ml IV Total 150 ml Output Urine Total 600 ml 650 ml 150 ml 150 ml 375 ml # Voids 1 1 # Bowel Movements 0 0 0 Result Diagram: 07/11/1742907/11/17429 Objective Remarks GENERAL: MBMN mild sob SKIN: Warm and dry. HEAD: Normocephalic. EYES: No scleral icterus. No injection or drainage. NECK: Supple, trachea midline. No JVD or lymphadenopathy. CARDIOVASCULAR: Regular rate and rhythm without murmurs, gallops, or rubs. RESPIRATORY: Breath sounds equal bilaterally. No accessory muscle use. GASTROINTESTINAL: Abdomen soft, non-tender, nondistended. MUSCULOSKELETAL: No cyanosis, or edema. BACK: Nontender without obvious deformity. No CVA tenderness. A/P Assessment and Plan COPD Exac Hypoxia, no PE Bronchitis HTN PLAN: Supplement 02 DC Solumedrol Pred 20 mg tid Cont abx SQ lovenox Anxious to go home Change to PO Levaquin 500 mg daily PFT Will need home 02 Rony Kahn MD Jul 11, 2017 18:30
[2017-07-11] MEDS: predniSONE 20 MG TAB PO SCH (18:31)
[2017-07-11] MEDS: ALPRAZolam 0.5 MG TAB PO PRN (20:38)
[2017-07-11] MEDS: TERAZOSIN HCL 1 MG CAP PO SCH (20:38)
[2017-07-12] VITALS (31 sets, daily range): BP systolic 91–135; BP diastolic 56–78; PULSE 56–94; RESP 11–22; TEMP 97.6–98.4; O2SAT 92–98
[2017-07-12] MEDS: CHLORHEXIDINE GLUCONATE 2 % 1 PACK (2 CLOTHS)(taper/protocol) TOPICAL SCH (04:00)
[2017-07-12] MEDS: RESP: ALBUTEROL 2.5 MG/IPRATROPIUM 0.5 MG NEB (SCH) INH (07:30)
[2017-07-12] MEDS: predniSONE 20 MG TAB PO SCH ×3 (09:13→17:54)
[2017-07-12] MEDS: ENOXAPARIN SODIUM 40 MG/0.4 ML SYRINGE SQ SCH (09:13)
[2017-07-12] MEDS: guaiFENesin E.R. 600 MG TAB PO SCH ×2 (09:13→21:13)
[2017-07-12] MEDS: LISINOPRIL 20 MG TAB PO SCH (09:13)
[2017-07-12] MEDS: LEVOFLOXACIN 500 MG TAB PO SCH (09:13)
[2017-07-12] MEDS: SODIUM CHLORIDE 0.9% FLUSH 10 ML FLUSH IV FLUSH SCH ×2 (09:14→21:14)
[2017-07-12] MEDS ORDERED: LEVOFLOXACIN 750 MG TAB PO SCH (11:00)
--- NOTE | 2017-07-12 13:58 | HHI.PR ---
Subjective Remarks Patient was seen and examined today for follow-up on acute hypoxic respiratory failure. patient's clinical appearance is same as yesterday still requiring BiPAP at night, only able to wean down the door liters per nasal cannula yesterday. Patient still very frustrated and wants to go home. P Objective Vital Signs Date Time Temp Pulse Resp B/P (MAP) Pulse Ox O2 Delivery O2 Flow Rate FiO2 07/12/17 11:00 84 14 126/72 (90) 95 07/12/17 11:00 92 07/12/17 10:00 86 07/12/17 10:00 92 13 109/72 (84) 95 07/12/17 09:00 78 15 91/56 (68) 92 07/12/17 09:00 84 07/12/17 08:00 98 Nasal Cannula 4.00 07/12/17 08:00 76 07/12/17 08:00 97.6 76 13 102/71 (81) 98 07/12/17 07:33 95 Nasal Cannula 07/12/17 07:00 76 17 94 07/12/17 07:00 76 07/12/17 06:15 95 Nasal Cannula 4.00 07/12/17 06:00 58 16 125/69 (87) 94 07/12/17 06:00 62 07/12/17 05:00 58 12 129/78 (95) 96 07/12/17 04:00 96 30 07/12/17 04:00 98.0 56 12 118/69 (85) 96 07/12/17 04:00 57 07/12/17 04:00 98 Bi-Pap 30 07/12/17 03:00 62 11 135/63 (87) 97 07/12/17 02:00 58 19 101/72 (82) 94 07/12/17 02:00 60 07/12/17 01:04 96 30 07/12/17 01:00 70 12 108/70 (83) 96 07/12/17 00:07 98.0 62 20 115/66 (82) 96 07/12/17 00:00 69 07/12/17 00:00 95 Bi-Pap 30 07/11/17 23:02 69 18 96/59 (71) 92 07/11/17 23:01 95 Bi-Pap 30 07/11/17 22:50 96 30 07/11/17 22:48 70 07/11/17 22:00 72 18 102/63 (76) 91 07/11/17 21:09 94 Nasal Cannula 4.50 07/11/17 21:00 80 19 125/80 (95) 93 07/11/17 20:00 86 07/11/17 20:00 98.4 78 16 110/67 (81) 94 07/11/17 20:00 94 Nasal Cannula 4.00 07/11/17 19:00 90 19 113/68 (83) 94 07/11/17 18:00 96 23 115/68 (84) 93 07/11/17 18:00 96 07/11/17 17:00 96 21 111/76 (88) 92 07/11/17 16:00 76 07/11/17 16:00 95 Nasal Cannula 4.00 07/11/17 16:00 97.9 86 19 108/67 (81) 92 07/11/17 15:00 80 18 111/62 (78) 94 07/11/17 14:00 96 07/11/17 14:00 86 23 102/64 (77) 92 I/O 07/11/17 07/11/17 07/11/17 07/12/17 07/12/17 07/12/17 07:00 15:00 23:00 07:00 15:00 23:00 Intake Total 750 ml 200 ml 0 ml Output Total 150 ml 375 ml 125 ml 300 ml Balance -150 ml 375 ml 75 ml -300 ml Intake Oral 600 ml 200 ml 0 ml IV Total 150 ml Output Urine Total 150 ml 375 ml 125 ml 300 ml # Voids 1 1 1 # Bowel Movements 0 0 0 Result Diagram: 07/11/17 0430 07/11/17 0430 Objective Remarks GENERAL: Well-developed, well-nourished, in no acute distress. alert and orientated HEENT: Head is normocephalic without any lesions or masses noted. Facial features are symmetric. Eyes: Extraocular muscles are intact. Conjunctivae were clear. NECK: Supple without any masses. Trachea midline no deviation. No JVD, CARDIAC: Regular rhythm, regular rate. S1/S2 are heard. No murmurs gallops or rubs. LUNGS: Clear to auscultation bilateral today, no wheeze, rhonchi or rales. No use of accessory muscles on inspiration or expiration. ABDOMEN: Soft, nontender. Nondistended. Bowel sounds heard in all 4 quadrants. No organomegaly or masses. Negative rebound, negative guarding EXTREMITIES: No edema, pulses are equal bilaterally. No cyanosis or clubbing NEUROLOGY: Mood and affect appear appropriate. Cranial nerves II through XII grossly intact. Moving all extremities, speech is clear A/P Assessment and Plan Acute hypoxic respiratory failure, likely secondary to combination of emphysema and pneumonia CT scan does indicate moderate severity of pulmonary emphysema. Reviewing CT scans do indicate possible atelectasis and/or consolidation right upper and lower lobe Continue O2 supplementation maintain O2 sats greater than 92%. Patient requiring BiPAP 10/5 support throughout the night Prednisone 20 mg 3 times daily Duo nebs every 6 hours while awake and albuterol every 2 hours as needed, will add EZ Pap Continue incentive spirometry Continue Levaquin by mouth Continue guaifenesin Awaiting PFT Obtain home walk and walk study, consulted case management to arrange home oxygen Pulmonology following the patient Hypertension accelerated on presentation, blood pressure improved Lisinopril and terazosin were continued Norvasc 10 mg daily was started Metoprolol not continued secondary to low blood pressure this time DVT prevention Sequential compression devices subcutaneous Lovenox Discharge Planning Discharge planning in 24 hours depending on patient's response to treatment and decrease in O2 demand Maldonado Stovall Jul 12, 2017 13:58
[2017-07-12] MEDS: RESP: ALBUTEROL 2.5 MG/3 ML NEB (PRN) INH ×2 (14:28→19:23)
--- NOTE | 2017-07-12 16:45 | HHI.PR ---
Subjective Remarks 71 YOWm with COPD, sob, hypoxia CTA no PE Weaned to NC cough, no sp " I feel fine, I would rather be home" On 4 lnc Ambulates with 4LNC Objective Vital Signs Vital Signs Date Time Temp Pulse Resp B/P (MAP) Pulse Ox O2 Delivery O2 Flow Rate FiO2 07/12/17 14:00 94 12 106/65 (79) 92 07/12/17 14:00 76 07/12/17 13:00 78 18 119/67 (84) 95 07/12/17 12:00 86 07/12/17 12:00 90 Nasal Cannula 4.00 07/12/17 12:00 98.2 82 15 118/72 (87) 96 07/12/17 11:00 84 14 126/72 (90) 95 07/12/17 11:00 92 07/12/17 10:00 86 07/12/17 10:00 92 13 109/72 (84) 95 07/12/17 09:00 78 15 91/56 (68) 92 07/12/17 09:00 84 07/12/17 08:00 98 Nasal Cannula 4.00 07/12/17 08:00 76 07/12/17 08:00 97.6 76 13 102/71 (81) 98 07/12/17 07:33 95 Nasal Cannula 07/12/17 07:00 76 17 94 07/12/17 07:00 76 07/12/17 06:15 95 Nasal Cannula 4.00 07/12/17 06:00 58 16 125/69 (87) 94 07/12/17 06:00 62 07/12/17 05:00 58 12 129/78 (95) 96 07/12/17 04:00 96 30 07/12/17 04:00 98.0 56 12 118/69 (85) 96 07/12/17 04:00 57 07/12/17 04:00 98 Bi-Pap 30 07/12/17 03:00 62 11 135/63 (87) 97 07/12/17 02:00 58 19 101/72 (82) 94 07/12/17 02:00 60 07/12/17 01:04 96 30 07/12/17 01:00 70 12 108/70 (83) 96 07/12/17 00:07 98.0 62 20 115/66 (82) 96 07/12/17 00:00 69 07/12/17 00:00 95 Bi-Pap 30 07/11/17 23:02 69 18 96/59 (71) 92 07/11/17 23:01 95 Bi-Pap 30 07/11/17 22:50 96 30 07/11/17 22:48 70 07/11/17 22:00 72 18 102/63 (76) 91 07/11/17 21:09 94 Nasal Cannula 4.50 07/11/17 21:00 80 19 125/80 (95) 93 07/11/17 20:00 86 07/11/17 20:00 98.4 78 16 110/67 (81) 94 07/11/17 20:00 94 Nasal Cannula 4.00 07/11/17 19:00 90 19 113/68 (83) 94 07/11/17 18:00 96 23 115/68 (84) 93 07/11/17 18:00 96 07/11/17 17:00 96 21 111/76 (88) 92 I/O 07/11/17 07/11/17 07/11/17 07/12/17 07/12/17 07/12/17 07:00 15:00 23:00 07:00 15:00 23:00 Intake Total 750 ml 200 ml 0 ml 600 ml Output Total 150 ml 375 ml 125 ml 300 ml 800 ml Balance -150 ml 375 ml 75 ml -300 ml -200 ml Intake Oral 600 ml 200 ml 0 ml 600 ml IV Total 150 ml Output Urine Total 150 ml 375 ml 125 ml 300 ml 800 ml # Voids 1 1 1 # Bowel Movements 0 0 0 Result Diagram: 07/11/1742907/11/17429 Objective Remarks GENERAL: MBMN mild sob SKIN: Warm and dry. HEAD: Normocephalic. EYES: No scleral icterus. No injection or drainage. NECK: Supple, trachea midline. No JVD or lymphadenopathy. CARDIOVASCULAR: Regular rate and rhythm without murmurs, gallops, or rubs. RESPIRATORY: Breath sounds equal bilaterally. No accessory muscle use. GASTROINTESTINAL: Abdomen soft, non-tender, nondistended. MUSCULOSKELETAL: No cyanosis, or edema. BACK: Nontender without obvious deformity. No CVA tenderness. A/P Assessment and Plan COPD Exac Hypoxia, no PE Bronchitis HTN PLAN: Supplement 02 Pred 20 mg tid Cont abx SQ lovenox Anxious to go home PO Levaquin 500 mg daily Will need home 02 DC Plans for home Rony Kahn MD Jul 12, 2017 16:45
[2017-07-12] MEDS: TERAZOSIN HCL 1 MG CAP PO SCH (21:13)
[2017-07-13] VITALS (13 sets, daily range): BP systolic 96–135; BP diastolic 58–86; PULSE 60–88; RESP 12–33; TEMP 96.6–98.4; O2SAT 92–96
[2017-07-13] MEDS: CHLORHEXIDINE GLUCONATE 2 % 1 PACK (2 CLOTHS)(taper/protocol) TOPICAL SCH (04:00)
[2017-07-13 05:04] LABS: AUTOMATED NEUTROPHIL # 11.7 TH/MM3 (1.8-7.7); BASOPHIL % 0.1 % (0.0-2.0); HEMATOCRIT 40.8 % (39.0-51.0); HEMOGLOBIN 13.4 GM/DL (13.0-17.0); LYMPHOCYTE # 0.5 TH/MM3 (1.0-4.8); MEAN CELL VOLUME 92.1 FL (80.0-100.0); MEAN CORPUSCULAR HEMOGLOBIN 30.2 PG (27.0-34.0); MEAN CORPUSCULAR HGB CONC 32.8 % (32.0-36.0); MEAN PLATELET VOLUME 7.8 FL (7.0-11.0); MONO % 3.7 % (0.0-8.0); MONOCYTE # 0.5 TH/MM3 (0-0.9); NEUT % 92.2 % (16.0-70.0); PLATELET COUNT 146 TH/MM3 (150-450); RED BLOOD COUNT 4.43 MIL/MM3 (4.50-5.90); RED CELL DISTRIBUTION WIDTH 12.9 % (11.6-17.2); WHITE BLOOD COUNT 12.7 TH/MM3 (4.0-11.0)
[2017-07-13 05:19] LABS: BICARBONATE 31.5 MEQ/L (21.0-32.0); CALCIUM 8.1 MG/DL (8.5-10.1); MAGNESIUM 2.8 MG/DL (1.5-2.5)
[2017-07-13 05:36] LABS: CREATININE 1.2 MG/DL (0.60-1.30)
[2017-07-13] MEDS ORDERED: OXYGENDME NAS.CANULA (07:49)
[2017-07-13] MEDS: predniSONE 20 MG TAB PO SCH ×2 (10:31→14:08)
[2017-07-13] MEDS: LEVOFLOXACIN 500 MG TAB PO SCH (10:31)
[2017-07-13] MEDS: LISINOPRIL 20 MG TAB PO SCH (10:31)
[2017-07-13] MEDS: SODIUM CHLORIDE 0.9% FLUSH 10 ML FLUSH IV FLUSH SCH (10:31)
[2017-07-13] MEDS: guaiFENesin E.R. 600 MG TAB PO SCH (10:31)
[2017-07-13] MEDS: ENOXAPARIN SODIUM 40 MG/0.4 ML SYRINGE SQ SCH (10:32)
--- NOTE | 2017-07-13 10:56 | HHI.DCPOC ---
Discharge Care Plan Diagnosis: (1) Respiratory failure (2) COPD exacerbation Goals to Promote Your Health * To prevent worsening of your condition and complications * To maintain your health at the optimal level Directions to Meet Your Goals Take your medications as prescribed Follow your dietary instruction Follow activity as directed Keep your appointments as scheduled Take your immunizations and boosters as scheduled If your symptoms worsen call your PCP, if no PCP go to Urgent Care Center or Emergency Room Smoking is Dangerous to Your Health. Avoid second hand smoke Call the 24-hour hour crisis hotline for domestic abuse at Maldonado Stovall Jul 13, 2017 10:56
[2017-07-13] MEDS ORDERED: MEDR4PAK PO (11:01)
[2017-07-13] MEDS ORDERED: guaiFENesin ER PO (11:01)
[2017-07-13] MEDS ORDERED: LEVA500T33 PO (11:01)
--- NOTE | 2017-07-13 11:41 | HHI.PR ---
Subjective Remarks 71 YOWm with COPD, sob, hypoxia CTA no PE Weaned to NC cough, no sp " I feel fine, I would rather be home" Anxious to go home Ambulates with 4LNC Objective Vital Signs Vital Signs Date Time Temp Pulse Resp B/P (MAP) Pulse Ox O2 Delivery O2 Flow Rate FiO2 07/13/17 09:32 93 Nasal Cannula 4.00 07/13/17 08:00 96.6 84 12 117/79 (92) 92 07/13/17 07:00 74 14 135/72 (93) 92 07/13/17 06:00 88 07/13/17 06:00 88 33 113/80 (91) 95 07/13/17 05:00 62 07/13/17 05:00 62 12 129/69 (89) 96 07/13/17 04:00 94 Nasal Cannula 4.00 07/13/17 04:00 97.8 60 12 114/62 (79) 95 07/13/17 04:00 60 07/13/17 03:04 62 12 105/61 (76) 95 07/13/17 02:03 66 13 96/58 (71) 95 07/13/17 02:00 68 07/13/17 01:03 80 16 117/67 (84) 95 07/13/17 00:02 98.4 68 12 105/59 (74) 95 07/13/17 00:00 94 Nasal Cannula 4.00 07/13/17 00:00 64 07/12/17 23:02 68 12 94/57 (69) 93 07/12/17 22:01 76 15 92/58 (69) 94 07/12/17 22:00 76 07/12/17 21:01 74 14 98/61 (73) 95 07/12/17 20:00 94 Nasal Cannula 4.00 07/12/17 20:00 84 07/12/17 20:00 98.4 84 19 113/66 (82) 94 07/12/17 19:23 96 Nasal Cannula 4.00 07/12/17 19:00 84 19 119/72 (88) 95 07/12/17 18:56 86 19 115/64 (81) 95 07/12/17 18:00 94 07/12/17 17:56 92 22 106/70 (82) 94 07/12/17 17:00 92 22 106/70 (82) 94 07/12/17 16:00 97.8 94 18 116/72 (87) 92 07/12/17 16:00 84 07/12/17 16:00 94 Nasal Cannula 4.00 07/12/17 15:00 84 19 103/67 (79) 92 07/12/17 14:00 94 12 106/65 (79) 92 07/12/17 14:00 76 07/12/17 13:00 78 18 119/67 (84) 95 07/12/17 12:00 86 07/12/17 12:00 90 Nasal Cannula 4.00 07/12/17 12:00 98.2 82 15 118/72 (87) 96 I/O 07/12/17 07/12/17 07/12/17 07/13/17 07/13/17 07/13/17 07:00 15:00 23:00 07:00 15:00 23:00 Intake Total 0 ml 600 ml 480 ml 240 ml Output Total 300 ml 800 ml 1250 ml Balance -300 ml -200 ml -770 ml 240 ml Intake Oral 0 ml 600 ml 480 ml 240 ml Output Urine Total 300 ml 800 ml 1250 ml # Voids 1 # Bowel Movements 0 Result Diagram: 07/13/1741807/13/17418 Objective Remarks GENERAL: MBMN mild sob SKIN: Warm and dry. HEAD: Normocephalic. EYES: No scleral icterus. No injection or drainage. NECK: Supple, trachea midline. No JVD or lymphadenopathy. CARDIOVASCULAR: Regular rate and rhythm without murmurs, gallops, or rubs. RESPIRATORY: Breath sounds equal bilaterally. No accessory muscle use. GASTROINTESTINAL: Abdomen soft, non-tender, nondistended. MUSCULOSKELETAL: No cyanosis, or edema. BACK: Nontender without obvious deformity. No CVA tenderness. A/P Assessment and Plan COPD Exac Hypoxia, no PE Bronchitis HTN PLAN: Supplement 02 to keep sat >88% Pred 20 mg tid Cont abx SQ lovenox Anxious to go home PO Levaquin 500 mg daily DC Plans for home Rony Kahn MD Jul 13, 2017 11:41
[2017-07-13] MEDS: RESP: ALBUTEROL 2.5 MG/3 ML NEB (PRN) INH (15:27)
--- NOTE | 2017-07-16 10:19 | RSPPFT ---
DATE OF PROCEDURE: 07/12/17 COMMENTS: Spirometry shows FVC of 4.4 at 90% of predicted, FEV1 of 1.5 at 42%, FEV1/FVC ratio is decreased. Flow is decreased at FEF 25, FEF 75 and FEF 25-75. There is no response after bronchodilator treatment. Flow volume loop indicates an obstructive pattern. IMPRESSION: 1. Moderately severe obstructive lung disease. 2. No response after bronchodilator treatment.
== END 2017-07-13 17:04 | disposition home or self-care (01) | DRG 189 ==
LOC: PHED 06:11 → PHEDA 08:39 → INTOOBSV 08:39 → PH3A 12:57 → OBSVTOIN 07-09 15:34 → PHICU 07-09 18:48 → PH3A 07-13 08:13
PROVIDERS: ADMIT Hospitalist; ATTEND Hospitalist
PROC: 5A09357 Assistance with Respiratory Ventilation, Less than 24 Consecutive Hours, Continuous Positive Airway Pressure (ICD-10-PCS; principal; 2017-07-09)
DX: J96.01 Acute respiratory failure with hypoxia (principal); J18.9 Pneumonia, unspecified organism; E87.3 Alkalosis; J44.1 Chronic obstructive pulmonary disease with (acute) exacerbation; J98.11 Atelectasis; J44.0 Chronic obstructive pulmonary disease with (acute) lower respiratory infection; E78.00 Pure hypercholesterolemia, unspecified; I10 Essential (primary) hypertension; F17.290 Nicotine dependence, other tobacco product, uncomplicated; I71.4 Abdominal aortic aneurysm, without rupture; Z86.73 Personal history of transient ischemic attack (TIA), and cerebral infarction without residual deficits; Z23 Encounter for immunization
CPT/HCPCS: 36600; 71046; 71250; 71275; 80048; 80053; 81001; 82805; 83735; 83880; 84484; 85025; 85379; 87641; 87804; 90732; 94002; 94003; 94060; 94150; 94618; 94640; 94664; 96365; 96372; 96374; 96375; 96376; G0378; J1650; J1956; J2930; J7512; J7613; Q9967

== ENCOUNTER 2017-07-28 01:49 | Inpatient (IN) | payer MEDICARE ==
[2017-07-28] VITALS (32 sets, daily range): BP systolic 40–156; BP diastolic 30–101; PULSE 71–111; RESP 16–30; TEMP 97.9–98.5; O2SAT 93–100
[~2017-07-28] VITALS: Ht 182.9 cm; Wt 85.0 kg
[~2017-07-28 01:49] MED LIST changes: -ALBU0.086 INH; -ALBU6.7H INH; -AMLO10 PO; +AMLO10TA2 PO; -DOXY100T PO; -HYDR12.56 PO; +LEVA500T33 PO; -LISI-366 PO; +LISI-515 PO; +MEDR4PAK PO; +OXYGENDME NAS.CANULA; -PRED20 PO; -TOPR25TA2 PO; -ZITHTAB6 PO; +guaiFENesin ER PO
[2017-07-28] MEDS ORDERED: SODIUM CHLORIDE 0.9% FLUSH 10 ML FLUSH IVF PRN (03:00)
[2017-07-28] MEDS ORDERED: PANTOPRAZOLE INJ 80 MG in SODIUM CHLORIDE 0.9% INJ 35 ML IV ONE (03:00)
[2017-07-28] MEDS ORDERED: SODIUM CHLOR 0.9% 1000 ML INJ 1,000 ML IV ONE ×2 (03:00)
[2017-07-28] MEDS ORDERED: PANTOPRAZOLE INJ 80 MG in SODIUM CHLORIDE 0.9% INJ 100 ML IV SCH ×2 (03:00→03:30)
[2017-07-28 03:21] LABS: AUTOMATED NEUTROPHIL # 6.4 TH/MM3 (1.8-7.7); BASOPHIL % 0.4 % (0.0-2.0); EOSINOPHIL # 0.1 TH/MM3 (0-0.4); EOSINOPHIL % 1.3 % (0.0-4.0); LYMPH % 18.6 % (9.0-44.0); LYMPHOCYTE # 1.6 TH/MM3 (1.0-4.8); MEAN CELL VOLUME 93.8 FL (80.0-100.0); MEAN CORPUSCULAR HEMOGLOBIN 30.8 PG (27.0-34.0); MEAN CORPUSCULAR HGB CONC 32.8 % (32.0-36.0); MEAN PLATELET VOLUME 7.9 FL (7.0-11.0); MONO % 7.1 % (0.0-8.0); MONOCYTE # 0.6 TH/MM3 (0-0.9); NEUT % 72.6 % (16.0-70.0); PLATELET COUNT 169 TH/MM3 (150-450); RED BLOOD COUNT 1.58 MIL/MM3 (4.50-5.90); RED CELL DISTRIBUTION WIDTH 14.1 % (11.6-17.2); WHITE BLOOD COUNT 8.8 TH/MM3 (4.0-11.0)
[2017-07-28 03:28] LABS: CHLORIDE 113 MEQ/L (98-107); HEMATOCRIT 14.8 % (39.0-51.0); HEMOGLOBIN 4.9 GM/DL (13.0-17.0); SODIUM (NA) 148 MEQ/L (136-145)
[2017-07-28 03:31] LABS: CALCIUM 7.8 MG/DL (8.5-10.1); INTERNATIONAL NORMALIZED RATIO 1.2 RATIO
[2017-07-28 03:32] LABS: ALBUMIN 1.6 GM/DL (3.4-5.0); BICARBONATE 26.2 MEQ/L (21.0-32.0); BLOOD UREA NITROGEN 36 MG/DL (7-18); GLUCOSE,RANDOM 147 MG/DL (74-106)
[2017-07-28 03:35] LABS: ALT (GPT) 21 U/L (12-78); AST (GOT) 25 U/L (15-37); GLOMERULAR FILTRATION RATE 66 ML/MIN (>89)
[2017-07-28 03:36] LABS: TOTAL BILIRUBIN ADULT 0.3 MG/DL (0.2-1.0); TOTAL PROTEIN 4.3 GM/DL (6.4-8.2)
[2017-07-28 03:38] LABS: ALKALINE PHOSPHATASE 55 U/L (45-117)
[2017-07-28] MEDS ORDERED: IOHEXOL 350 MG/ML 10 ML VIAL (for RAD DIAG) IVCONTRAST ONE (04:00)
--- NOTE | 2017-07-28 04:16 | RADRPT ---
EXAM DATE/TIME: 07/28/2017 04:05 [facility] COMPARISON: No previous studies available for comparison. INDICATIONS : Shortness of breath. MEDICAL HISTORY : Cerebrovascular disease. Cardiovascular disease Emphysema SURGICAL HISTORY : None. ENCOUNTER: Initial ACUITY: 1 day PAIN SCORE: 0/10 LOCATION: Bilateral chest FINDINGS: Hyperinflation. Cardiomegaly. Right jugular line tip overlies the SVC. Emphysematous changes and scar ring again seen. Reticular nodular infiltrate left upper lobe. CONCLUSION: Emphysema. Mild left upper lobe reticular nodular infiltrate seen. Adalberto Mason MD on July 28, 2017 at 4:12 Board Certified Radiologist. This report was verified electronically.
[2017-07-28] MEDS: PANTOPRAZOLE INJ 80 MG in SODIUM CHLORIDE 0.9% INJ 100 ML IV SCH ×2 (04:29→14:56)
--- NOTE | 2017-07-28 04:36 | RADRPT ---
EXAM DATE/TIME: 07/28/2017 03:46 [facility] COMPARISON: CHEST SINGLE AP, July 28, 2017, 4:05. CT PULMONARY ANGIOGRAM, July 09, 2017, 20:57. CT THORA X W/O CONTRAST, July 08, 2017, 8:41. INDICATIONS : Back and abdominal pain. Low blood count. Possible dissection. IV CONTRAST: 100 cc Omnipaque 350 (iohexol) IV RADIATION DOSE: 19.18 CTDIvol (mGy) MEDICAL HISTORY : Cerebrovascular disease. Emphysema. SURGICAL HISTORY : None. ENCOUNTER: Initial ACUITY: 1 day PAIN SCALE: 10/10 LOCATION: all over TECHNIQUE: Volumetric scanning was performed using a multi-row detector CT scanner. The data was post processed with a variety of visualization algorithms including full volume maximum intensity projection, multi -planar sliding thin slab reformation, curved planar reformation, and surface rendering techniques. Using automated exposure control and adjustment of the mA and/or kV according to patient size, radiat ion dose was kept as low as reasonably achievable to obtain optimal diagnostic quality images. DICOM format image data is available electronically for review and comparison. FINDINGS: There are emphysematous changes identified. There is consolidation in the right upper lobe posteriorl y as well as the right lower lobe superior segment, and there are bilateral pleural effusions. Nodula r infiltrates in the left upper lobe are now seen on axial image 24. This includes an 8.4 mm nodular focus on a 1.3 cm nodular focus. In the mediastinum, 1.2 cm short axis subcarinal lymph node, subcent imeter short axis AP window and right paratracheal lymph nodes are identified. There is atherosclerot ic plaquing of the aorta identified. There is no evidence for dissection. There is aneurysmal dilatat ion of the infrarenal abdominal aorta measuring 3.7 x 3.8 cm in AP and transverse dimension on image 133, and 3.9 x 3.7 cm in AP and transverse dimension on axial image 153 at the level of the SLOAN takeo ff. Aneurysmal dilatation of the common iliac arteries also present up to 1.8 cm on the right and 1.7 cm on the left. Extensive atherosclerotic calcific and soft plaquing noted. The left external iliac artery is occluded with reconstitution of the left common femoral artery identified. There is mild sp lenomegaly up to 13.7 cm. Scattered tiny low-density liver lesions likely represent small cysts. 1.6 cm cyst in the right lobe. Patient also has bilateral renal cysts largest on the left measuring 4.6 c m. Small and large bowel are unremarkable. CONCLUSION: 1. 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 2. No evidence for aortic dissection. 3. Hepatic and renal cyst. 4. Splenomegaly. 5. Emphysema, bilateral pulmonary infiltrates. Adalberto Mason MD on July 28, 2017 at 4:28 Board Certified Radiologist. This report was verified electronically.
[2017-07-28] MEDS ORDERED: METO50TA PO (04:48)
--- NOTE | 2017-07-28 04:50 | PD ---
HPI Chief Complaint: GI Complaint Time Seen by Provider: 03:00 Travel History International Travel<30 days: No Contact w/Intl Traveler<30days: No Traveled to known affect area: No History of Present Illness HPI Patient is a 71-year-old male who comes in complaining of pain all over. Per , he had a bloody bowel movement this evening. He complains of pain to his abdomen. He is very angry and difficult to get a history from. His says that he was feeling fine, but today noticed bloody stool. She says this has never happened before. She says he is not on any blood thinners. They provide very little other information. PFSH Past Medical History Anemia: Yes Blood Disorders: No Cancer: No Cardiovascular Problems: Yes High Cholesterol: Yes Cerebrovascular Accident: Yes (TIA 2005) Diminished Hearing: No Endocrine: No Genitourinary: Yes Hypertension: Yes Immune Disorder: No Musculoskeletal: Yes Neurologic: Yes Psychiatric: No Reproductive: No Respiratory: Yes (RECURRENT BRONCHITITS ) Tetanus Vaccination: > 5 Years Influenza Vaccination: No Past Surgical History Abdominal Surgery: Yes (HERNIA REPAIRS) AICD: No Joint Replacement: No Pacemaker: No Other Surgery: No Social History Alcohol Use: No Tobacco Use: Yes (Occasional cigar) Substance Use: No Allergies-Medications (Allergen,Severity, Reaction): Coded Allergies: cephalexin (Verified Allergy, Severe, Anaphylaxis, 07/08/17) Reported Meds & Prescriptions Reported Meds & Active Scripts Active Oxygen (O2) Device Liter CHELE.CANULA CONTINUOUS Oxygen Concentrator Portable Gaseous 4 L/min via Nasal Canula Continuous For 99 months Reported Metoprolol Tartrate 50 Mg Tab 50 Mg PO BID Terazosin (Terazosin HCl) 2 Mg Cap 2 Mg PO HS Lisinopril 20 Mg Tab 20 Mg PO DAILY Review of Systems ROS Limitations: Clinical Condition, Uncooperative Physical Exam Narrative GENERAL: Awake and alert, confused and angry. SKIN: Focused skin assessment warm/dry. Mild jaundice present. HEAD: Atraumatic. Normocephalic. EYES: Pupils equal and round. No scleral icterus. ENT: Mucous membranes pink and moist. NECK: Trachea midline. No JVD. CARDIOVASCULAR: Tachycardia. No murmur appreciated. RESPIRATORY: No accessory muscle use. Clear to auscultation. Breath sounds equal bilaterally. GASTROINTESTINAL: Abdomen soft, nondistended. Diffusely tender to palpation. RECTAL: Gross blood per rectum. MUSCULOSKELETAL: No obvious deformities. No clubbing. No cyanosis. No edema. NEUROLOGICAL: Awake and alert, but seems confused. No obvious cranial nerve deficits. Motor grossly within normal limits. Normal speech. Data Data Last Documented VS Vital Signs Date Time Temp Pulse Resp B/P (MAP) Pulse Ox O2 Delivery O2 Flow Rate FiO2 07/28/17 04:50 93 18 114/54 97 07/28/17 04:34 98.0 Nasal Cannula 4.00 Orders Orders Complete Blood Count With Diff (07/28/17 03:00) Comprehensive Metabolic Panel (07/28/17 03:00) Lipase (07/28/17 03:00) Prothrombin Time / Inr (Pt) (07/28/17 03:00) Act Partial Throm Time (Ptt) (07/28/17 03:00) Red Blood Cells (Rbc) (07/28/17 03:00) Blood Product Administration (07/28/17 03:00) Ecg Monitoring (07/28/17 03:00) Iv Access Insert/Monitor (07/28/17 03:00) Oximetry (07/28/17 03:00) Sodium Chloride 0.9% Flush (Ns Flush) (07/28/17 03:00) Sodium Chloride 0.9... W/Pantoprazole In (07/28/17 03:00) Sodium Chloride 0.9... W/Pantoprazole In (07/28/17 03:00) Sodium Chlor 0.9% 1000 Ml Inj (Ns 1000 M (07/28/17 03:00) Sodium Chlor 0.9% 1000 Ml Inj (Ns 1000 M (07/28/17 03:00) Lactic Acid (07/28/17 03:00) Chest, Single Ap (07/28/17 ) Type And Screen (07/28/17 03:04) Pantoprazole Inj (Protonix Inj) (07/28/17 03:30) Cta Thor Abd Aorta W Iv C W3d (07/28/17 03:29) Iohexol 350 Inj (Omnipaque 350 Inj) (07/28/17 04:00) Pantoprazole Inj (Protonix Inj) (07/28/17 04:15) Vancomycin Inj (Vancomycin Inj) (07/28/17 05:00) Aztreonam Inj (Azactam Inj) (07/28/17 05:00) Morphine Inj (Morphine Inj) (07/28/17 05:00) Labs Laboratory Tests Test 07/28/17 02:45 White Blood Count 8.8 TH/MM3 Red Blood Count 1.58 MIL/MM3 Hemoglobin 4.9 GM/DL Hematocrit 14.8 % Mean Corpuscular Volume 93.8 FL Mean Corpuscular Hemoglobin 30.8 PG Mean Corpuscular Hemoglobin Concent 32.8 % Red Cell Distribution Width 14.1 % Platelet Count 169 TH/MM3 Mean Platelet Volume 7.9 FL Neutrophils (%) (Auto) 72.6 % Lymphocytes (%) (Auto) 18.6 % Monocytes (%) (Auto) 7.1 % Eosinophils (%) (Auto) 1.3 % Basophils (%) (Auto) 0.4 % Neutrophils # (Auto) 6.4 TH/MM3 Lymphocytes # (Auto) 1.6 TH/MM3 Monocytes # (Auto) 0.6 TH/MM3 Eosinophils # (Auto) 0.1 TH/MM3 Basophils # (Auto) 0.0 TH/MM3 CBC Comment DIFF FINAL Differential Comment Prothrombin Time 12.0 SEC Prothromb Time International Ratio 1.2 RATIO Activated Partial Thromboplast Time 21.0 SEC Blood Urea Nitrogen 36 MG/DL Creatinine 1.10 MG/DL Random Glucose 147 MG/DL Total Protein 4.3 GM/DL Albumin 1.6 GM/DL Calcium Level 7.8 MG/DL Alkaline Phosphatase 55 U/L Aspartate Amino Transf (AST/SGOT) 25 U/L Alanine Aminotransferase (ALT/SGPT) 21 U/L Total Bilirubin 0.3 MG/DL Sodium Level 148 MEQ/L Potassium Level 3.8 MEQ/L Chloride Level 113 MEQ/L Carbon Dioxide Level 26.2 MEQ/L Anion Gap 9 MEQ/L Estimat Glomerular Filtration Rate 66 ML/MIN Lactic Acid Level 5.8 mmol/L Lipase 84 U/L MDM Medical Decision Making Medical Screen Exam Complete: Yes Emergency Medical Condition: Yes Medical Record Reviewed: Yes Differential Diagnosis GI bleed versus aortic dissection versus sepsis Narrative Course Patient is a 71-year-old male comes in complaining of pain all over. Patient is hypotensive and tachycardic. He has bright red blood per rectum. Patient placed on the monitor, 3 large-bore IVs started. He was given 2 L of fluid. Emergent blood called for. Given 2 units of emergency release blood. Right IJ placed. Patient rushed to CT to evaluate for a dissection. The CAT scan shows in abdominal aortic aneurysm, no evidence of dissection. He does have several areas of pneumonia in both of his lungs. Hemoglobin is 4.9. 2 more units of blood, type and crossed. Given Protonix and started on a Protonix drip. He did have some improvement of his blood pressure. Given broad-spectrum antibiotics. He will be admitted for further management. Critical Care Narrative Aggregate critical care time was 60 minutes. Time to perform other separately billable procedures was not included in the critical care time. My time did not include minutes spent treating any other patients simultaneously or on activities that did not directly contribute to the patient's treatment. The services I provided to this patient were to treat and/or prevent clinically significant deterioration that could result in: [Serious illness or I provided critical care services requiring my management, as noted below: Chart data review, documentation time, medication orders and management, vital sign assessments/reviewing monitor data, ordering and reviewing lab tests, ordering and interpreting/reviewing x-rays and diagnostic studies, care of the patient and discussion of the patient with the admitting physicians. Procedures Procedure Narrative CENTRAL VENOUS LINE: The site was prepped with Betadine and sterilely draped. It was infiltrated with 1% lidocaine plain. The deep vein was cannulated using normal Seldinger technique. A triple lumen central line was placed in the right IJ site and secured with simple interrupted suture. The site was sterilely dressed. The patient tolerated the procedure well. Diagnosis Primary Impression: GI bleed Qualified Codes: K62.5 - Hemorrhage of anus and rectum Additional Impressions: Anemia Qualified Codes: D64.9 - Anemia, unspecified Pneumonia Qualified Codes: J18.9 - Pneumonia, unspecified organism Hypotension Qualified Codes: I95.9 - Hypotension, unspecified Admitting Information Admitting Physician Requests: Ashwini Aguilera MD Jul 28, 2017 04:50
[2017-07-28] MEDS ORDERED: MORPHINE SULFATE 2 MG/ML INJ IV PUSH ONE (05:00)
[2017-07-28] MEDS ORDERED: AZTREONAM INJ 1,000 MG in SODIUM CHLORIDE 0.9% INJ 100 ML IV ONE (05:00)
[2017-07-28] MEDS ORDERED: VANCOMYCIN INJ 1,600 MG in SODIUM CHLORID 0.9% 500 ML INJ 500 ML IV ONE (05:00)
[2017-07-28] MEDS ORDERED: SODIUM CHLOR 0.9% 250 ML INJ 250 ML IV ONE ×2 (05:15→15:15)
[2017-07-28] MEDS ORDERED: SODIUM CHLOR 0.9% 1000 ML INJ 1,000 ML IV SCH (06:20)
[2017-07-28] MEDS ORDERED: CHLORHEXIDINE GLUCONATE 2 % 1 PACK (2 CLOTHS) TOP PRN (06:30)
[2017-07-28] MEDS ORDERED: MAGNESIUM HYDROXIDE SUSP 30 ML CUP PO PRN (06:30)
[2017-07-28] MEDS ORDERED: ACETAMINOPHEN 325 MG TAB PO PRN (06:30)
[2017-07-28] MEDS ORDERED: ONDANSETRON HCL 4 MG/2 ML VIAL IV PUSH PRN (06:30)
[2017-07-28] MEDS ORDERED: SENNOSIDES 8.6 MG TAB PO PRN (06:30)
[2017-07-28] MEDS ORDERED: BISACODYL 10 MG SUPP RECTAL PRN (06:30)
[2017-07-28] MEDS ORDERED: RESP: ALBUTEROL 2.5 MG/3 ML NEB (PRN) INH (06:30)
[2017-07-28] MEDS ORDERED: MISCELLANEOUS NURSING INFORMATION XX SCH (06:30)
[2017-07-28] MEDS ORDERED: LACTULOSE SYRUP 20 GM/30 ML CUP PO PRN (06:30)
[2017-07-28] MEDS ORDERED: SODIUM CHLORIDE 0.9% FLUSH 10 ML FLUSH IV FLUSH PRN (06:30)
--- NOTE | 2017-07-28 06:39 | HHI.HP ---
[facility] Service Critical Care Medicine Primary Care Physician Weston Duggan M.D. Admission Diagnosis GI bleed, pneumonia, Anemia Diagnosis: (1) Tobacco abuse Diagnosis: Secondary (2) Dyslipidemia Diagnosis: Secondary (3) Lactic acidosis Diagnosis: Secondary (4) History of CVA (cerebrovascular accident) Diagnosis: Secondary (5) BPH (benign prostatic hyperplasia) Diagnosis: Secondary (6) Iliac artery occlusion, left Diagnosis: Principal (7) Pulmonary nodule Diagnosis: Secondary (8) Liver cyst Diagnosis: Secondary (9) Renal cyst Diagnosis: Secondary (10) Splenomegaly Diagnosis: Secondary (11) History of hypertension Diagnosis: Secondary (12) ASVD (arteriosclerotic vascular disease) Diagnosis: Secondary (13) AAA (abdominal aortic aneurysm) without rupture Diagnosis: Principal (14) Respiratory failure Diagnosis: Principal (15) Hypotension Diagnosis: Secondary (16) Pneumonia Diagnosis: Principal (17) GI bleed Diagnosis: Principal (18) Acute blood loss anemia Diagnosis: Principal (19) Septic shock Diagnosis: Secondary Chief Complaint: Presented with bloody bowel movements/shortness of breath Travel History International Travel<30 Days: No Contact w/Intl Traveler <30 Da: No Traveled to Known Affected Are: No Sepsis Criteria SIRS Criteria (2 or more): RR > 20 or PaCO2 < 32 Sepsis Criteria (SIRS+source): Infect source susp/known Severe Sepsis (+one): Lactate >2 Septic Shock Criteria: Lactic acid >=4 Criteria Outcome: Meets septic shock criteria History of Present Illness This is a 71-year-old male. Date of admission 08/14/2017. Past medical history includes COPD, prior CVA, hypertension and dyslipidemia and BPH. He has known moderate to severe obstructive lung disease by pulmonary function tests. He follows with Dr. Kahn. He continues to smoke cigars. Prior history of cigarette use. He is recently been using ibuprofen. He is not on any blood thinners including aspirin or VKA or NOACs he presents to [facility] after having dark bowel movements and extrinsic abdominal pain. Initially in triage patient was hypertensive but after bowel movement and became hypotensive. Received 2 L normal saline, received vancomycin, aztreonam and 3 units PRBCs. Hemoglobin was around 5. Central line was placed in the right IJ. 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 Liver cyst. Bilateral renal cysts. Upon seen the patient in ED, patient is not complaining of any symptoms. Denies abdominal pain, shortness of breath. Review of Systems Constitutional: DENIES: Fever, Weight gain, Weight loss Endocrine: DENIES: Polydipsia, Polyuria Eyes: DENIES: Blurred vision, Double Vision Ears, nose, mouth, throat: DENIES: Tinnitus, Odynophagia Respiratory: COMPLAINS OF: Shortness of breath, DENIES: Apneas, Snoring, Hemoptysis, Sputum production Cardiovascular: DENIES: Chest pain Gastrointestinal: COMPLAINS OF: Abdominal pain, Black stools, DENIES: Bloody stools, Constipation, Diarrhea Genitourinary: COMPLAINS OF: Urinary incontinence Musculoskeletal: DENIES: Joint pain Integumentary: DENIES: Abnormal pigmentation Hematologic/lymphatic: DENIES: Bruising Immunologic/allergic: DENIES: Eczema Neurologic: DENIES: Abnormal gait Psychiatric: DENIES: Anxiety, Confusion, Depression Past Family Social History Allergies: Coded Allergies: cephalexin (Verified Allergy, Severe, Anaphylaxis, 07/08/17) Past Medical History History of CVA History of TIA 2006 Hypertension Dyslipidemia BPH Infrarenal AAA Iliac artery aneurysm ASVD Ongoing tobaccoism bilateral renal cysts Bilateral Renal cyst Splenomegaly Past Surgical History Inguinal hernia repair Reported Medications Terazosin 2 mg by mouth daily Metoprolol tartrate 50 mg by mouth twice a day Lisinopril 20 mg by mouth daily Active Ordered Medications Reviewed in EMR Family History Mother in 60s of coronary vascular disease. Father from lung cancer/hypertension. Brother from gunshot wound. Social History Currently smokes cigars. Long history of tobaccoism. No significant alcohol use. Denies illicit drug use. Physical Exam Vital Signs Vital Signs Date Time Temp Pulse Resp B/P (MAP) Pulse Ox O2 Delivery O2 Flow Rate FiO2 07/28/17 06:05 85 18 111/51 (71) 100 Nasal Cannula 4.00 07/28/17 05:58 98.1 81 18 119/47 100 07/28/17 05:35 83 18 119/47 (71) 100 Nasal Cannula 2.00 07/28/17 05:31 98.0 92 18 111/46 99 07/28/17 05:20 82 18 111/46 (67) 99 Nasal Cannula 4.00 07/28/17 05:05 82 18 106/38 (60) 100 Nasal Cannula 4.00 2/3/18 04:50 92 18 114/54 (74) 97 Nasal Cannula 4.00 07/28/17 04:50 93 18 114/54 97 07/28/17 04:34 98.0 91 18 104/50 (68) 94 Nasal Cannula 4.00 07/28/17 04:26 98.0 93 18 114/47 95 07/28/17 04:04 94 20 98/44 (62) 94 Nasal Cannula 4.00 07/28/17 03:34 78 18 99/54 (69) Nasal Cannula 4.00 07/28/17 03:17 86 107/38 (61) 07/28/17 03:15 97.9 07/28/17 03:14 97.9 111 18 94/37 07/28/17 03:07 82 22 94/37 (56) 95 Nasal Cannula 4.00 07/28/17 03:00 40/30 (33) 58/34 (42) 07/28/17 02:55 94 78/44 (55) 51/35 (40) 07/28/17 02:09 124/101 (109) 07/28/17 01:56 97.9 102 18 100 4.00 Physical Exam GENERAL: 71-year-old male resting in bed in no acute distress SKIN: Warm and dry. We'll perfused HEAD: Atraumatic. Normocephalic. EYES: Pupils equal and round. No scleral icterus. No injection or drainage. ENT: No nasal bleeding or discharge. Mucous membranes pink and moist. NECK: Trachea midline. No JVD. CARDIOVASCULAR: Regular rate and rhythm. S1, S2. No S4. Without murmur RESPIRATORY: Few crackles appreciated in the right upper lobe lobes.. Breath sounds equal bilaterally. Positive and extremity GASTROINTESTINAL: Abdomen soft, non-tender, nondistended. Hypoactive bowel sounds are appreciated MUSCULOSKELETAL: Extremities without significant peripheral edema. No obvious deformities. NEUROLOGICAL: Awake and alert. No obvious cranial nerve deficits. Motor grossly within normal limits. Five out of 5 muscle strength in the arms and legs. Normal speech. Laboratory Laboratory Tests Test 07/28/17 02:45 White Blood Count 8.8 Red Blood Count 1.58 Hemoglobin 4.9 Hematocrit 14.8 Mean Corpuscular Volume 93.8 Mean Corpuscular Hemoglobin 30.8 Mean Corpuscular Hemoglobin Concent 32.8 Red Cell Distribution Width 14.1 Platelet Count 169 Mean Platelet Volume 7.9 Neutrophils (%) (Auto) 72.6 Lymphocytes (%) (Auto) 18.6 Monocytes (%) (Auto) 7.1 Eosinophils (%) (Auto) 1.3 Basophils (%) (Auto) 0.4 Neutrophils # (Auto) 6.4 Lymphocytes # (Auto) 1.6 Monocytes # (Auto) 0.6 Eosinophils # (Auto) 0.1 Basophils # (Auto) 0.0 CBC Comment DIFF FINAL Differential Comment Prothrombin Time 12.0 Prothromb Time International Ratio 1.2 Activated Partial Thromboplast Time 21.0 Blood Urea Nitrogen 36 Creatinine 1.10 Random Glucose 147 Total Protein 4.3 Albumin 1.6 Calcium Level 7.8 Alkaline Phosphatase 55 Aspartate Amino Transf (AST/SGOT) 25 Alanine Aminotransferase (ALT/SGPT) 21 Total Bilirubin 0.3 Sodium Level 148 Potassium Level 3.8 Chloride Level 113 Carbon Dioxide Level 26.2 Anion Gap 9 Estimat Glomerular Filtration Rate 66 Lactic Acid Level 5.8 Lipase 84 Result Diagram: 07/28/17 0245 07/28/17 0245 Imaging Last Impressions Aorta CTA 07/28/17 0329 Signed Impressions: Service Date/Time: Friday, July 28, 2017 03:46 - CONCLUSION: 1. Extensive atherosclerotic plaquing of the aorta and iliac vessels with aneurysmal dilatation of the aorta and bilateral common iliac arteries. 2. No evidence for aortic dissection. 3. Hepatic and renal cyst. 4. Splenomegaly. 5. Emphysema, bilateral pulmonary infiltrates. Adalberto Mason MD Chest X-Ray 07/28/17 0000 Signed Impressions: Service Date/Time: Friday, July 28, 2017 04:05 - CONCLUSION: Emphysema. Mild left upper lobe reticular nodular infiltrate seen. Adalberto Mason MD Septic Shock Reassessment Septic shock perfusion: reassessment completed Caprini VTE Risk Assessment Caprini VTE Risk Assessment: Mod/High Risk (score >= 2) VTE Pharm Contraindication: Active bleeding Caprini Risk Assessment Model Point Value = 1 Point Value = 2 Point Value = 3 Point Value = 5 Age 41-60 Minor surgery BMI > 25 kg/m2 Swollen legs Varicose veins or History of unexplained or recurrent spontaneous Oral contraceptives or hormone replacement Sepsis (< 1 month) Serious lung disease, including pneumonia (< 1 month) Abnormal pulmonary function Acute myocardial infarction Congestive heart failure (< 1 month) History of inflammatory bowel disease Medical patient at bed rest Age 61-74 Arthroscopic surgery Major open surgery (> 45 min) Laparoscopic surgery (> 45 min) Malignancy Confined to bed (> 72 hours) Immobilizing plaster cast Central venous access Age >= 75 History of VTE Family history of VTE Factor V Leiden Prothrombin [id number] Lupus anticoagulant Anticardiolipin antibodies Elevated serum homocysteine Heparin-induced thrombocytopenia Other congenital or acquired thrombophilia Stroke (< 1 month) Elective arthroplasty Hip, pelvis, or leg fracture Acute spinal cord injury (< 1 month) Prophylaxis Regimen Total Risk Factor Score Risk Level Prophylaxis Regimen 0-1 Low Early ambulation 2 Moderate Order ONE of the following: *Sequential Compression Device (SCD) *Heparin 5000 units SQ BID 3-4 Higher Order ONE of the following medications: *Heparin 5000 units SQ TID *Enoxaparin/Lovenox 40 mg SQ daily (WT < 150 kg, CrCl > 30 mL/min) *Enoxaparin/Lovenox 30 mg SQ daily (WT < 150 kg, CrCl > 10-29 mL/min) *Enoxaparin/Lovenox 30 mg SQ BID (WT < 150 kg, CrCl > 30 mL/min) AND/OR *Sequential Compression Device (SCD) 5 or more Highest Order ONE of the following medications: *Heparin 5000 units SQ TID (Preferred with Epidurals) *Enoxaparin/Lovenox 40 mg SQ daily (WT < 150 kg, CrCl > 30 mL/min) *Enoxaparin/Lovenox 30 mg SQ daily (WT < 150 kg, CrCl > 10-29 mL/min) *Enoxaparin/Lovenox 30 mg SQ BID (WT < 150 kg, CrCl > 30 mL/min) AND *Sequential Compression Device (SCD) Assessment and Plan Assessment and Plan Neuro/Psych: History of CVA Acetaminophen/Ofirmev for fever Avoid sedatives Neurologically intact at the present time CV: Shock- -likely hemorrhagic History of dyslipidemia Lactic acidosis History of hypertension Infrarenal AAA 3.8 x 3.7 cm Holding metoprolol tartrate 50 mg by mouth twice a day and lisinopril 20 mg by mouth daily light of hypotension Check EKG. Serial troponins Serial lactates every 6 hours until cleared Received 2 units normal saline in ED along with 3 units PRBCs. Aortogram revealed 3.7 x 3.8 cm infrarenal AAA. 1.8 cm right iliac aneurysm and 1.7 left iliac aneurysm. Left external iliac is included. Resp: Chronic respiratory failure -oxygen dependent Emphysema Pulmonary nodules Right upper/lower lobe infiltrates likely community-acquired pneumonia Nasal cannula to maintain saturations greater than equal to 90% Incentive spirometry while awake Radiographic Imaging revealed a 8.4 mm and 1.3 cm left upper lobe pulmonary nodule. - We'll need serial CT scans. Follows with pulmonology as below Also revealed right upper and lower lobe infiltrates. PFT - moderate to severe obstructive lung disease Pulmonary - Dr. Kahn GI: Likely upper GI bleed Splenomegaly 1.6 cm right lobe liver cyst Hypoalbuminemia History of inguinal hernia repair Received pantoprazole 80 mg IV 1 currently drip at 8 mg an hour GI consultation for endoscopy Serial hemoglobins every 6 hours Coags within normal limits Aortogram revealed splenomegaly 13.7 cm and liver cyst 1.6 cm. : BPH Holding Terazosin 2 mg by mouth daily light of hypotension Endo: Hyperglycemia of critical illness Sliding-scale insulin to maintain euglycemia Novulin R T6 hours low regimen Renal: Bilateral renal cyst Acute kidney injury Creatinine currently 1.1 Monitor urine output Accurate I's and O's No hydronephrosis on imaging. Avoid nephrotoxic drugs Heme: Acute blood loss anemia - normocytic Transfused 3 units PRBCs Serial hemoglobins every 6 hours ID: Community-acquired pneumonia Received vancomycin and aztreonam in ED Pending blood cultures 2, sputum, influenza, urinary Legionella and pneumococcal antigens FEN: Hypernatremia Change fluids to half-normal saline at 100 cc an hour Recheck BMP in a.m. MSK: PT evaluate and treat Access - Right IJ CVL day 1 placed by ED physician 07/28/17 Prophylaxis - GI - pantoprazole drip - DVT - SCD/holding pharmacological prophylaxis in light of likely GI bleed Critical Care: The total critical care time was 35 minutes. Time to perform other separately billable procedures was not included in the critical care time. Code Status Full code Discussed Condition With Dr Winters, patient. Care plan discussed and all questions answered Problem Qualifiers (1) BPH (benign prostatic hyperplasia): Qualified Codes: N40.1 - Benign prostatic hyperplasia with lower urinary tract symptoms; R35.0 - Frequency of micturition (2) Respiratory failure: Qualified Codes: J96.21 - Acute and chronic respiratory failure with hypoxia (3) Hypotension: Qualified Codes: I95.9 - Hypotension, unspecified (4) Pneumonia: Qualified Codes: J18.9 - Pneumonia, unspecified organism (5) GI bleed: Qualified Codes: K62.5 - Hemorrhage of anus and rectum Tino Morrison MD Jul 28, 2017 06:39
[2017-07-28] MEDS ORDERED: POTASSIUM PHOSPHATE INJ 30 MMOL in SODIUM CHLOR 0.9% 250 ML INJ 250 ML IV PRN (07:00)
[2017-07-28] MEDS ORDERED: POTASSIUM CHLOR 40 MEQ PREMIX 100 ML IV PRN (07:00)
[2017-07-28] MEDS ORDERED: POTASSIUM CHLOR 20 MEQ PREMIX 100 ML IV PRN ×2 (07:00)
[2017-07-28] MEDS ORDERED: MAGNESIUM OXIDE 400 MG TAB PO PRN (07:00)
[2017-07-28] MEDS ORDERED: POTASSIUM PHOSPHATE MONOBASIC 500 MG TAB PO PRN (07:00)
[2017-07-28] MEDS ORDERED: POTASSIUM CHLORIDE 25 MEQ EFFERVESCENT TAB PO PRN (07:00)
[2017-07-28] MEDS ORDERED: GLUCAGON 1 MG/ML VIAL OTHER PRN (07:00)
[2017-07-28] MEDS ORDERED: POTASSIUM PHOSPHATE MONOBASIC 500 MG TAB PO/TUBE PRN (07:00)
[2017-07-28] MEDS ORDERED: MAGNESIUM SULFATE INJ 4 GM in SODIUM CHLORIDE 0.9% INJ 92 ML IV PRN (07:00)
[2017-07-28] MEDS ORDERED: DEXTROSE 50% IN WATER 50 ML VIAL(D50) IV PUSH PRN (07:00)
[2017-07-28] MEDS ORDERED: ACETAMINOPHEN 1000 MG/100 ML 100 ML IV PRN (07:00)
[2017-07-28] MEDS ORDERED: SODIUM PHOSPHATE INJ 30 MMOL in SODIUM CHLOR 0.9% 250 ML INJ 240 ML IV PRN (07:00)
[2017-07-28] MEDS ORDERED: MAGNESIUM SULFATE INJ 2 GM in SODIUM CHLORIDE 0.9% INJ 96 ML IV PRN (07:00)
[2017-07-28] MEDS: RESP: ALBUTEROL 2.5 MG/IPRATROPIUM 0.5 MG NEB (SCH) NEB ×3 (08:00→21:52)
[2017-07-28] MEDS: DOCUSATE SODIUM 50 MG/SENNA 8.6 MG TAB PO SCH ×2 (09:00→20:04)
[2017-07-28] MEDS: SODIUM CHLORIDE 0.9% FLUSH 10 ML FLUSH IV FLUSH SCH ×2 (09:00→20:04)
[2017-07-28] MEDS: SODIUM CHLOR 0.45% 1000 ML INJ 1,000 ML IV SCH ×2 (09:00→18:04)
[2017-07-28] MEDS: LEVOFLOXACIN 750 MG PREMIX INJ 150 ML IV SCH (09:30)
--- NOTE | 2017-07-28 09:56 | PD.CONS ---
HPI History of Present Illness This is a 71 y/o male with Past medical history includes emphysema, Chronic respiratory failure -oxygen dependent, COPD, prior CVA, hypertension and dyslipidemia, and BPH who presents to [facility] after having dark bowel movements for a couple of days. Patient denies abd pain, nausea, vomiting, hematemesis, hematuria, hematochezia, change in bowels or GERD. He has been taking Advil 6 a day X 6 weeks. Denies blood thinner or alcohol. Last black BM was last night, hgb on admission was 4.9. He has received 3 units of blood, no recent labs done. PPI drip started. Patient denies previous hx of this, never had EGD/colonoscopy before. He was found to have CAP right upper/lower lobe infiltrates. (Beto Manzo) PFSH Past Medical History History of CVA History of TIA 2005 Hypertension Dyslipidemia BPH Infrarenal AAA Iliac artery aneurysm ASVD Ongoing tobaccoism bilateral renal cysts Bilateral Renal cyst Splenomegaly COPD Emphysema Past Surgical History Inguinal hernia repair (Beto Manzo) Coded Allergies: cephalexin (Verified Allergy, Severe, Anaphylaxis, 07/08/17) Medications Current Medications Medications (Trade) Dose Ordered Sig/Maulik Route Start Time Stop Time Status Last Admin (NS Flush) 2 ml UNSCH PRN IVF 07/28/17 03:00 Pantoprazole Sodium 80 mg/ Sodium Chloride 100 ml @ 10 mls/hr Q10H IV 07/28/17 04:15 07/28/17 04:29 Sodium Chloride 250 ml @ 15 mls/hr ONCE ONCE IV 07/28/17 05:15 07/28/17 21:54 07/28/17 05:34 (NS Flush) 2 ml UNSCH PRN IV FLUSH 07/28/17 06:30 (NS Flush) 2 ml BID IV FLUSH 07/28/17 09:00 (Tylenol) 650 mg Q6H PRN PO 07/28/17 06:30 ([place] 5-325 Mg) 1 tab Q4H PRN PO 07/28/17 06:30 (Morphine Inj) 2 mg Q2H PRN IV PUSH 07/28/17 06:30 (Zofran Inj) 4 mg Q6H PRN IV PUSH 07/28/17 06:30 Miscellaneous Information 1 Q361D XX 07/28/17 06:30 07/28/17 08:45 (Chlorhexidine 2% Cloth) 3 pack Taper DAILY@04 TOP 07/29/17 04:00 07/25/18 03:59 (Chlorhexidine 2% Cloth) 3 pack UNSCH PRN TOP 07/28/17 06:30 ([place]-Colace) 1 tab BID PO 07/28/17 09:00 (Milk Of Magnesia Liq) 30 ml Q12H PRN PO 07/28/17 06:30 (Senokot) 17.2 mg Q12H PRN PO 07/28/17 06:30 (Dulcolax Supp) 10 mg DAILY PRN RECTAL 07/28/17 06:30 (Lactulose Liq) 30 ml DAILY PRN PO 07/28/17 06:30 (Duoneb Neb) 1 ampule Q4HR NEB NEB 07/28/17 08:00 (Albuterol Neb) 2.5 mg Q2HR NEB PRN NEB 07/28/17 06:30 Potassium Chloride 100 ml @ 50 mls/hr Q2H PRN IV 07/28/17 07:00 Potassium Chloride 100 ml @ 50 mls/hr Q2H PRN IV 07/28/17 07:00 (K-Lyte Cl Eff) 50 meq UNSCH PRN PO 07/28/17 07:00 Potassium Chloride 100 ml @ 25 mls/hr UNSCH PRN IV 07/28/17 07:00 Potassium Chloride 100 ml @ 50 mls/hr Q2H PRN IV 07/28/17 07:00 Magnesium Sulfate 4 gm/Sodium Chloride 100 ml @ 50 mls/hr UNSCH PRN IV 07/28/17 07:00 (Mag-Ox) 800 mg UNSCH PRN PO 07/28/17 07:00 Magnesium Sulfate 2 gm/Sodium Chloride 100 ml @ 50 mls/hr UNSCH PRN IV 07/28/17 07:00 (K-Phos) 2,000 mg Q4H PRN PO 07/28/17 07:00 Sodium Phosphate 30 mmol/Sodium Chloride 250 ml @ 42 mls/hr UNSCH PRN IV 07/28/17 07:00 (K-Phos) 2,000 mg UNSCH PRN PO/TUBE 07/28/17 07:00 Potassium Phosphate 30 mmol/ Sodium Chloride 260 ml @ 42 mls/hr UNSCH PRN IV 07/28/17 07:00 (D50w (Vial) Inj) 50 ml UNSCH PRN IV PUSH 07/28/17 07:00 (Glucagon Inj) 1 mg UNSCH PRN OTHER 07/28/17 07:00 (NovoLIN R SUPPLEMENTAL SCALE) 1 Q6HR SQ 07/28/17 12:00 Acetaminophen 100 ml @ 400 mls/hr Q8HR PRN IV 07/28/17 07:00 (Pulmicort Respule Neb) 0.5 mg Q12HR NEB NEB 07/28/17 08:00 Aztreonam 2000 mg/ Sodium Chloride 100 ml @ 200 mls/hr Q8H IV 07/28/17 13:00 Levofloxacin/ Dextrose 150 ml @ 100 mls/hr Q24H IV 07/28/17 08:00 07/28/17 09:30 Sodium Chloride 1,000 ml @ 100 mls/hr Q10H IV 07/28/17 07:15 07/28/17 09:00 Family History Non contributory Social History Smokes Cigars no alcohol use No illicit drug use (Beto Manzo) Review of Systems Constitutional: DENIES: Chills Endocrine: DENIES: Polyuria Eyes: DENIES: Double Vision Ears, nose, mouth, throat: DENIES: Hoarseness Respiratory: COMPLAINS OF: Shortness of breath Cardiovascular: DENIES: Lower Extremity Edema Gastrointestinal: COMPLAINS OF: Black stools, DENIES: Abdominal pain, Bloody stools, Constipation, Diarrhea, Nausea, Vomiting, Difficulty Swallowing, Anorexia, Odynophagia, Swelling of Abdomen, Heartburn, Hematemesis Genitourinary: DENIES: Hematuria Musculoskeletal: DENIES: Neck pain Integumentary: DENIES: Jaundice Hematologic/lymphatic: DENIES: Bruising Immunologic/allergic: DENIES: Eczema Neurologic: DENIES: Abnormal gait Psychiatric: DENIES: Anxiety (Beto Manzo) GI Exam Vitals I&O Vital Signs Date Time Temp Pulse Resp B/P (MAP) Pulse Ox O2 Delivery O2 Flow Rate FiO2 07/28/17 06:20 07/28/17 06:05 85 18 111/51 (71) 100 Nasal Cannula 4.00 07/28/17 05:58 98.1 81 18 119/47 100 07/28/17 05:35 83 18 119/47 (71) 100 Nasal Cannula 2.00 07/28/17 05:31 98.0 92 18 111/46 99 07/28/17 05:20 82 18 111/46 (67) 99 Nasal Cannula 4.00 07/28/17 05:05 82 18 106/38 (60) 100 Nasal Cannula 4.00 07/28/17 04:50 92 18 114/54 (74) 97 Nasal Cannula 4.00 07/28/17 04:50 93 18 114/54 97 07/28/17 04:34 98.0 91 18 104/50 (68) 94 Nasal Cannula 4.00 07/28/17 04:26 98.0 93 18 114/47 95 07/28/17 04:04 94 20 98/44 (62) 94 Nasal Cannula 4.00 07/28/17 03:34 78 18 99/54 (69) Nasal Cannula 4.00 07/28/17 03:17 86 107/38 (61) 07/28/17 03:15 97.9 07/28/17 03:14 97.9 111 18 94/37 07/28/17 03:07 82 22 94/37 (56) 95 Nasal Cannula 4.00 07/28/17 03:00 40/30 (33) 58/34 (42) 07/28/17 02:55 94 78/44 (55) 51/35 (40) 07/28/17 02:09 124/101 (109) 07/28/17 01:56 97.9 102 18 100 4.00 I/O 07/27/17 07/27/17 07/27/17 07/28/17 07/28/17 07/28/17 07:00 15:00 23:00 07:00 15:00 23:00 Intake Total 3780 ml Balance 3780 ml Intake IV Total 2130 ml Packed Cells 1200 ml Blood Product IV Normal Saline Flush 450 ml # Voids 0 Imaging Last Impressions Aorta CTA 07/28/17 0329 Signed Impressions: Service Date/Time: Friday, July 28, 2017 03:46 - CONCLUSION: 1. Extensive atherosclerotic plaquing of the aorta and iliac vessels with aneurysmal dilatation of the aorta and bilateral common iliac arteries. 2. No evidence for aortic dissection. 3. Hepatic and renal cyst. 4. Splenomegaly. 5. Emphysema, bilateral pulmonary infiltrates. Adalberto Mason MD Chest X-Ray 07/28/17 0000 Signed Impressions: Service Date/Time: Friday, July 28, 2017 04:05 - CONCLUSION: Emphysema. Mild left upper lobe reticular nodular infiltrate seen. Adalberto Mason MD Laboratory Test 07/28/17 02:45 07/28/17 07:05 White Blood Count 8.8 TH/MM3 Red Blood Count 1.58 MIL/MM3 Hemoglobin 4.9 GM/DL Hematocrit 14.8 % Mean Corpuscular Volume 93.8 FL Mean Corpuscular Hemoglobin 30.8 PG Mean Corpuscular Hemoglobin Concent 32.8 % Red Cell Distribution Width 14.1 % Platelet Count 169 TH/MM3 Mean Platelet Volume 7.9 FL Neutrophils (%) (Auto) 72.6 % Lymphocytes (%) (Auto) 18.6 % Monocytes (%) (Auto) 7.1 % Eosinophils (%) (Auto) 1.3 % Basophils (%) (Auto) 0.4 % Neutrophils # (Auto) 6.4 TH/MM3 Lymphocytes # (Auto) 1.6 TH/MM3 Monocytes # (Auto) 0.6 TH/MM3 Eosinophils # (Auto) 0.1 TH/MM3 Basophils # (Auto) 0.0 TH/MM3 CBC Comment DIFF FINAL Differential Comment Prothrombin Time 12.0 SEC Prothromb Time International Ratio 1.2 RATIO Activated Partial Thromboplast Time 21.0 SEC Blood Urea Nitrogen 36 MG/DL Creatinine 1.10 MG/DL Random Glucose 147 MG/DL Total Protein 4.3 GM/DL Albumin 1.6 GM/DL Calcium Level 7.8 MG/DL Alkaline Phosphatase 55 U/L Aspartate Amino Transf (AST/SGOT) 25 U/L Alanine Aminotransferase (ALT/SGPT) 21 U/L Total Bilirubin 0.3 MG/DL Sodium Level 148 MEQ/L Potassium Level 3.8 MEQ/L Chloride Level 113 MEQ/L Carbon Dioxide Level 26.2 MEQ/L Anion Gap 9 MEQ/L Estimat Glomerular Filtration Rate 66 ML/MIN Lactic Acid Level 5.8 mmol/L Lipase 84 U/L Physical Examination HEENT: normocephalic; atraumatic; no jaundice. CHEST: Crackles in right upper lobs CARDIAC: Regular rate and rhythm ABDOMEN: Soft, nondistended, nontender; no hepatosplenomegaly; bowel sounds are present in all four quadrants. EXTREMITIES: No clubbing, cyanosis, or edema. SKIN: Normal; no rash; no jaundice. CORE CLEANER: No focal deficits; alert and oriented times three. (Beto Manzo) Assessment and Plan Plan - Profound anemia/ acute GI bleed- black stools for few days. Admits to taking Advil 6 a day X 6 weeks, hgb on admission 4.9 Received 3 units of blood, no recent labs done, last black BM last night, PPI drip started. - Right upper/lower lobe infiltrates likely community-acquired pneumonia- on abx - BRANDIN- likely secondary to GI bleed, high BUN indicative of upper GI bleed - Hyponatremia- per [facility] - High lactic acid- likely due to hemorrhagic shock - Past medical history includes emphysema, Chronic respiratory failure -oxygen dependent, COPD, prior CVA, hypertension and dyslipidemia, per [facility] Plan: - Clear liquid - serial H&H - I have discussed doing EGD/colonoscopy with pt but he is not very keen in regards to the prep, stating "I wouldn't able to get out of bed" He agreed to proceed with EGD and pending results, he will consider colonoscopy or can be done as an OP - EGD tomorrow - Obtain consents - NPO mn - Transfuse as needed - Cont. PPI drip - Notify GI for active bleed - Supportive care - Patient seen and examined by Dr. Rico and myself and this note is written on his behalf. (Beto Manzo) Physician Comments Seen and examined with JOSTIN, no active bleeding. transfused 3 units PRBC. Repeat CBC pending. Never has had gi pathak in the past. Egd/colonoscopy planned. Discussed with Dr. Ramsey. Thank you (Stephan Rico MD) Beto Manzo Jul 28, 2017 09:56 Stephan Rico MD Jul 28, 2017 10:36
[2017-07-28] MEDS: MORPHINE SULFATE 2 MG/ML INJ IV PUSH PRN ×2 (11:29→18:04)
[2017-07-28] MEDS: INSULIN NovoLIN REGULAR SUPPLEMENTAL SCALE SQ SCH ×2 (12:00→18:00)
[2017-07-28 12:25] LABS: HEMATOCRIT 20.2 % (39.0-51.0); HEMOGLOBIN 7.1 GM/DL (13.0-17.0)
[2017-07-28 12:33] LABS: BACTERIA, URINE OCC /hpf; BILIRUBIN, URINE NEG (NEG); BLOOD, URINE NEG (NEG); GLUCOSE,URINE NEG (NEG); KETONE, URINE NEG (NEG); MUCUS URINE FEW /lpf (OCC); NITRITE,URINE NEG (NEG); URINE COLOR YELLOW (YELLW/STRAW); URINE LEUKOCYTE ESTERASE NEG (NEG)
--- NOTE | 2017-07-28 13:20 | EKG ---
Date Performed: 07/28/2017 Time Performed: 05:24:53 PTAGE: 71 years EKG: Sinus rhythm Baseline artifact Poor initial anterior forces, which may normal variant. Significant ST depression anterolaterally, nonspecific. When compared to previous tracing, the ST depression Anterolaterally is new, clinical corrolation of all tracings are Suggested. SEPTAL MYOCARDIAL INFARCTION ABNORMAL ECG PREVIOUS TRACING : 04/28/2011 05.36 DOCTOR: Ariel Luque Interpretating Date/Time 07/28/2017 13:19:03
[2017-07-28] MEDS: AZTREONAM INJ 2,000 MG in SODIUM CHLORIDE 0.9% INJ 100 ML IV SCH ×2 (13:28→20:04)
--- NOTE | 2017-07-28 15:59 | MB ---
cc: SHABANA DUNAWAY MD DATE OF CONSULTATION: 07/28/2017. REASON FOR CONSULTATION: Elevated troponins. HISTORY OF PRESENT ILLNESS: The patient is a very pleasant 71-year-old gentleman with no significant cardiac history who does have a history of fairly regular Advil use. He says he has been having stomach pain intermittently over the last week or so and notes one black tarry stool. He then became extremely weak yesterday with feelings of very nonspecific debilitation and was brought to the emergency department and found to have a hemoglobin of 4.9 and a lactate of 5.8. His troponin also became elevated at 3.66. He denies any chest pain or shortness of breath though he was lightheaded with his general weakness. PAST MEDICAL HISTORY: 1. COPD. 2. Prior CVA. 3. Hypertension. 4. Hyperlipidemia. 5. Tobacco use. CURRENT MEDICATIONS: 1. Potassium. 2. Protonix. ALLERGIES: Cephalexin. PHYSICAL EXAMINATION: VITAL SIGNS: Afebrile, pulse 84, respiratory 16, blood pressure 127/62, satting 94 on 4 liters. GENERAL: Pleasant gentleman who says he is feeling much better following a transfusion in no distress. NECK: No JVD. LUNGS: Clear auscultation bilaterally. CARDIOVASCULAR: Regular rhythm. No murmurs appreciated. Abdomen: Benign. EXTREMITIES: No edema. LABORATORY DATA: Sodium 148, potassium 3.8, chloride 113, bicarbonate 26.2, BUN 36, creatinine 1.10, glucose 147, lactate is 5.8. Troponin up to 3.66. INR is 1.2. White count 8.8, hemoglobin on admission 4.9 and up to 7.1 post transfusion, platelets 169,000. EKGS: EKG showed sinus rhythm with anterolateral T-wave changes possibly consistent with ischemia. IMPRESSION: 1. Elevated troponin: The patient has an expected elevation in troponin given his severe anemia most likely caused by a GI bleed, probably from NSAID use. He feels much better since he has had a transfusion and has never had any chest pain to make us think that he has acute coronary syndrome. He also has no cardiac history. Though there is a common dilemma when a situation with this arises given the absence of prior cardiac disease or cardiac symptoms, I believe his initial workup should be with GI and following upper and lower endoscopy we can decide upon an ischemic workup likely with a nuclear stress test. Certainly I would not have him undergo a cardiac catheterization at this point with his possible requirement for blood thinners depending on its findings. I discussed the case Dr. Rico as well. I did ask for a repeat EKG following his blood transfusions to follow his EKG changes. I will also order echocardiogram as well. Further recommendations will based on his clinical course. Thank you again for the opportunity to participate in this patient's care. MD ART Ramírez/JAKE /2:14 PM /3:43 PM
[2017-07-28 18:06] LABS: HEMATOCRIT 21.3 % (39.0-51.0); HEMOGLOBIN 7.4 GM/DL (13.0-17.0)
[2017-07-28] MEDS: RESP: BUDESONIDE 0.5 MG/2 ML NEB NEB SCH ×2 (20:00→21:52)
[2017-07-29] VITALS (17 sets, daily range): BP systolic 123–143; BP diastolic 58–65; PULSE 73–97; RESP 2–26; TEMP 98.2–100.3; O2SAT 95–99
[2017-07-29] MEDS: PANTOPRAZOLE INJ 80 MG in SODIUM CHLORIDE 0.9% INJ 100 ML IV SCH ×3 (00:04→19:55)
[2017-07-29] MEDS: MORPHINE SULFATE 2 MG/ML INJ IV PUSH PRN ×6 (00:09→19:05)
[2017-07-29 00:11] LABS: HEMOGLOBIN 7.5 GM/DL (13.0-17.0)
[2017-07-29] MEDS: RESP: ALBUTEROL 2.5 MG/IPRATROPIUM 0.5 MG NEB (SCH) NEB ×6 (00:51→20:00)
[2017-07-29] MEDS: SODIUM CHLOR 0.45% 1000 ML INJ 1,000 ML IV SCH ×2 (03:00→14:09)
[2017-07-29] MEDS: CHLORHEXIDINE GLUCONATE 2 % 1 PACK (2 CLOTHS) TOP SCH (04:00)
[2017-07-29 04:18] LABS: AUTOMATED NEUTROPHIL # 4.5 TH/MM3 (1.8-7.7); BASOPHIL % 0.3 % (0.0-2.0); EOSINOPHIL # 0.1 TH/MM3 (0-0.4); EOSINOPHIL % 1.7 % (0.0-4.0); LYMPH % 12.1 % (9.0-44.0); LYMPHOCYTE # 0.7 TH/MM3 (1.0-4.8); MEAN CELL VOLUME 88.6 FL (80.0-100.0); MEAN CORPUSCULAR HEMOGLOBIN 30.6 PG (27.0-34.0); MEAN CORPUSCULAR HGB CONC 34.6 % (32.0-36.0); MEAN PLATELET VOLUME 7.3 FL (7.0-11.0); MONO % 8.9 % (0.0-8.0); MONOCYTE # 0.5 TH/MM3 (0-0.9); PLATELET COUNT 130 TH/MM3 (150-450); RED BLOOD COUNT 2.36 MIL/MM3 (4.50-5.90); RED CELL DISTRIBUTION WIDTH 14.9 % (11.6-17.2); WHITE BLOOD COUNT 5.9 TH/MM3 (4.0-11.0)
[2017-07-29 04:27] LABS: INTERNATIONAL NORMALIZED RATIO 1.2 RATIO; PROTHROMBIN TIME - PATIENT 11.9 SEC (9.8-11.6)
[2017-07-29 04:32] LABS: HEMATOCRIT 20.9 % (39.0-51.0); HEMOGLOBIN 7.2 GM/DL (13.0-17.0)
[2017-07-29 04:45] LABS: ALBUMIN 1.5 GM/DL (3.4-5.0); BICARBONATE 29.2 MEQ/L (21.0-32.0); CALCIUM-PROTEIN CORRECTED 8.8 MG/DL (8.5-10.1); CREATININE 0.78 MG/DL (0.60-1.30); MAGNESIUM 1.9 MG/DL (1.5-2.5); PHOSPHORUS 2.1 MG/DL (2.5-4.9); TOTAL BILIRUBIN ADULT 0.6 MG/DL (0.2-1.0)
[2017-07-29] MEDS ORDERED: SODIUM CHLOR 0.9% 250 ML INJ 250 ML IV ONE (04:45)
[2017-07-29] MEDS: AZTREONAM INJ 2,000 MG in SODIUM CHLORIDE 0.9% INJ 100 ML IV SCH ×3 (04:50→21:18)
[2017-07-29] MEDS: INSULIN NovoLIN REGULAR SUPPLEMENTAL SCALE SQ SCH ×4 (05:47→17:06)
[2017-07-29] MEDS: POTASSIUM CHLOR 40 MEQ PREMIX 100 ML IV PRN ×2 (06:52→09:39)
[2017-07-29] MEDS: RESP: BUDESONIDE 0.5 MG/2 ML NEB NEB SCH ×2 (08:00→20:00)
[2017-07-29] MEDS: LEVOFLOXACIN 750 MG PREMIX INJ 150 ML IV SCH (08:22)
[2017-07-29] MEDS: SODIUM CHLORIDE 0.9% FLUSH 10 ML FLUSH IV FLUSH SCH ×2 (08:23→19:55)
[2017-07-29] MEDS: DOCUSATE SODIUM 50 MG/SENNA 8.6 MG TAB PO SCH ×2 (08:23→21:18)
--- NOTE | 2017-07-29 10:20 | HHI.CCPN ---
Subjective Remarks/Hospital Course This is a 71-year-old male. Date of admission 08/14/2017. Past medical history includes COPD, prior CVA, hypertension and dyslipidemia and BPH. He has known moderate to severe obstructive lung disease by pulmonary function tests. He follows with Dr. Kahn. He continues to smoke cigars. Prior history of cigarette use. He is recently been using ibuprofen. He is not on any blood thinners including aspirin or VKA or NOACs he presents to [facility] after having dark bowel movements and extrinsic abdominal pain. Initially in triage patient was hypertensive but after bowel movement and became hypotensive. Received 2 L normal saline, received vancomycin, aztreonam and 3 units PRBCs. Hemoglobin was around 5. Central line was placed in the right IJ. 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 Liver cyst. Bilateral renal cysts. Upon seen the patient in ED, patient is not complaining of any symptoms. Denies abdominal pain, shortness of breath. 07/29: Transfused 4 units rbcs, Hct 20 now, continue to transfuse. Source not obvious. AAA is intact, no leak. Objective Vital Signs Date Time Temp Pulse Resp B/P (MAP) Pulse Ox O2 Delivery O2 Flow Rate FiO2 07/29/17 07:00 98 Nasal Cannula 4.00 07/29/17 06:30 98.2 78 20 130/62 Intake and Output 07/29/17 07/29/17 07/30/17 08:00 16:00 00:00 Intake Total 210 ml Output Total 500 ml 160 ml Balance -290 ml -160 ml Result Diagram: 07/29/17 0400 07/29/17 0400 Other Results Microbiology Date/Time Source Procedure Growth Status 07/28/17 11:15 Urine Catheterized Urine Legionella Antigen - Final PRESUMPTIVE NEGATIVE FOR LEGIONELLA P... Complete 07/28/17 11:15 Urine Catheterized Urine Streptococcus pneumoniae Antigen (M - Final PRESUMPTIVE NEGATIVE FOR STREPTOCOCCU... Complete Imaging Last Impressions Aorta CTA 07/28/17 0329 Signed Impressions: Service Date/Time: Friday, July 28, 2017 03:46 - CONCLUSION: 1. Extensive atherosclerotic plaquing of the aorta and iliac vessels with aneurysmal dilatation of the aorta and bilateral common iliac arteries. 2. No evidence for aortic dissection. 3. Hepatic and renal cyst. 4. Splenomegaly. 5. Emphysema, bilateral pulmonary infiltrates. Adalberto Mason MD Chest X-Ray 07/28/17 0000 Signed Impressions: Service Date/Time: Friday, July 28, 2017 04:05 - CONCLUSION: Emphysema. Mild left upper lobe reticular nodular infiltrate seen. Adalberto Mason MD Objective Remarks GENERAL: 71-year-old male SKIN: Warm and dry. We'll perfused HEAD: Atraumatic. Normocephalic. EYES: Pupils equal and round. No scleral icterus. No injection or drainage. ENT: No nasal bleeding or discharge. Mucous membranes pink and moist. NECK: Trachea midline. Airway widely patent. CARDIOVASCULAR: Regular rate and rhythm. S1, S2. No S4. Without murmur RESPIRATORY: Clear. Breath sounds equal bilaterally. No adventitious sounds. GASTROINTESTINAL: Abdomen soft, non-tender, nondistended. Hypoactive bowel sounds are appreciated MUSCULOSKELETAL: Extremities without significant peripheral edema. No obvious deformities. NEUROLOGICAL: Motor grossly within normal limits. Five out of 5 muscle strength in the arms and legs. A/P Assessment and Plan Neuro/Psych: History of CVA Acetaminophen/Ofirmev for fever Avoid sedatives Neurologically intact at the present time CV: Shock- -likely hemorrhagic History of dyslipidemia Lactic acidosis History of hypertension Infrarenal AAA 3.8 x 3.7 cm Holding metoprolol tartrate 50 mg by mouth twice a day and lisinopril 20 mg by mouth daily light of hypotension Check EKG. Serial troponins Serial lactates every 6 hours until cleared Received 2 units normal saline in ED along with 3 units PRBCs. Aortogram revealed 3.7 x 3.8 cm infrarenal AAA. 1.8 cm right iliac aneurysm and 1.7 left iliac aneurysm. Left external iliac is included. Enzyme spill from severe anemia likely. Resp: Chronic respiratory failure -oxygen dependent Emphysema Pulmonary nodules Right upper/lower lobe infiltrates likely community-acquired pneumonia Nasal cannula to maintain saturations greater than equal to 90% Incentive spirometry while awake Radiographic Imaging revealed a 8.4 mm and 1.3 cm left upper lobe pulmonary nodule. - We'll need serial CT scans. Follows with pulmonology as below Also revealed right upper and lower lobe infiltrates. PFT - moderate to severe obstructive lung disease Pulmonary - Dr. Kahn GI: Likely upper GI bleed Splenomegaly 1.6 cm right lobe liver cyst Hypoalbuminemia History of inguinal hernia repair Received pantoprazole 80 mg IV 1 currently drip at 8 mg an hour GI consultation for endoscopy Serial hemoglobins every 6 hours Coags within normal limits Aortogram revealed splenomegaly 13.7 cm and liver cyst 1.6 cm. : BPH Holding Terazosin 2 mg by mouth daily light of hypotension Endo: Hyperglycemia of critical illness Sliding-scale insulin to maintain euglycemia Novulin R T6 hours low regimen Renal: Bilateral renal cyst Acute kidney injury Creatinine currently 1.1 Monitor urine output Accurate I's and O's No hydronephrosis on imaging. Avoid nephrotoxic drugs Heme: Acute blood loss anemia - normocytic Transfused 3 units PRBCs Serial hemoglobins every 6 hours ID: Community-acquired pneumonia Received vancomycin and aztreonam in ED Pending blood cultures 2, sputum, influenza, urinary Legionella and pneumococcal antigens FEN: Hypernatremia Change fluids to half-normal saline at 100 cc an hour Recheck BMP in a.m. MSK: PT evaluate and treat Access - Right IJ CVL day 1 placed by ED physician 07/28/17 Prophylaxis - GI - pantoprazole drip - DVT - SCD/holding pharmacological prophylaxis in light of likely GI bleed Overall impression: Critically ill and undergoing resuscitation from hemorrhagic shock state. Source of blood loss unclear. Proceed with EGD today, continue to transfuse. Critical Care 38 mins Manolo Arciniega MD Jul 29, 2017 10:20
[2017-07-29] MEDS ORDERED: DO NOT ADM ANY ANTICOAGULANT DRUGS PRN (11:12)
--- NOTE | 2017-07-29 11:12 | GIPROC ---
[facility] [address] [facility]. [facility], [id number] EGD PROCEDURE REPORT EXAM DATE: 07/29/2017 PATIENT NAME: Neymar Navarrete MR #: [id number] BIRTHDATE: 1945 ATTENDING: Stephan Rico MD ORDER #: [id number] APPLICATION CHEMIST: Mateus Guzman and Clara Bolden STATUS: inpatient INDICATIONS: The patient is a 71 yr old male here for an EGD due to acute post hemorrhagic anemia, melena, and hematemesis PROCEDURE PERFORMED: EGD w/ ablation EGD w/ control of bleeding EGD w/ biopsy MEDICATIONS: None and Per Anesthesia. TOPICAL ANESTHETIC: CONSENT: The patient understands the risks and benefits of the procedure and understands that these risks include, but are not limited to: sedation, allergic reaction, infection, perforation and/or bleeding. Alternative means of evaluation and treatment include, among others: physical exam, x-rays, and/or surgical intervention. The patient elects to proceed with this endoscopic procedure. medical equipment was checked for proper function. Hand hygiene and appropriate measures for infection prevention was taken. After the risks, benefits and alternatives of the procedure were thoroughly explained, Informed consent was verified, confirmed and timeout was successfully executed by the treatment team. The patient was anesthetized with topical anesthesia and the Pentax EG-[id number] endoscope was introduced through the mouth and advanced to the second portion of the duodenum. Retroflexed views revealed no abnormalities The gastroscope was then slowly withdrawn and removed. ESOPHAGUS: The mucosa of the esophagus appeared normal. STOMACH: There was erythematous moderate gastritis in the gastric antrum. DUODENUM: Two non-bleeding, deep and irregular shaped ulcers measuring 15 x 20mm in size with surrounding edema, heaped up edges and a pigmented spot were found in the duodenal bulb. Argon plasma coagulation was applied to the sites. With complete hemostasis achieved. Biopsies were taken at edge of the ulcers. ADVERSE EVENTS: There were no complications. IMPRESSIONS: 1. The esophagus appeared normal 2. There was erythematous gastritis in the gastric antrum 3. Two ulcers measuring 15 x 20mm in size were found in the duodenal bulb; Argon plasma coagulation was applied to the sites; with complete hemostasis achieved; biopsies were taken 4. Retroflexed views revealed no abnormalities RECOMMENDATIONS: 1. Await biopsy results. Biopsy results will not be ready for 7-10 days. If you don't hear from us in two weeks, call our office for biopsy results. 2. Anti-reflux regimen 3. Continue PPI 4. Avoid NSAIDS 5. Monitor in ICU, GDA embolization if rebleeds. Type and screen for 4 units PRBC x 48 hours PATIENT CONDITION: stable DISPOSITION: Inpatient REPEAT EXAM: Return 1 month EGD pending biopsy results Stephan Rico MD eSigned: Stephan Rico MD 07/29/2017 11:11 AM cc: PATIENT NAME: Neymar Navarrete MR#: [id number]
[2017-07-29] MEDS ORDERED: PROPOFOL 200 MG/20 ML AMP IV ONE (12:00)
[2017-07-29] MEDS ORDERED: GLYCOPYRROLATE 1 MG/5 ML SYRINGE IV PUSH ONE (12:00)
[2017-07-29] MEDS ORDERED: ePHEDrine/NS 25 MG/5 ML SYRINGE IV ONE (12:00)
[2017-07-29] MEDS ORDERED: PHENYLEPH/NS 1000 MCG/10 ML SYR IV ONE (12:00)
[2017-07-29] MEDS ORDERED: LIDOCAINE HCL 1% PF 5 ML SYRINGE OTHER ONE (12:00)
--- NOTE | 2017-07-29 12:10 | EKG ---
Date Performed: 07/28/2017 Time Performed: 16:28:09 PTAGE: 71 years EKG: Sinus rhythm NONSPECIFIC ST & T-WAVE ABNORMALITY Poor initial anterior forces, which may be normal variant. Since previous tracing, no significant change noted BORDERLINE ECG PREVIOUS TRACING : 07/28/2017 05.24 DOCTOR: Ariel Luque Interpretating Date/Time 07/29/2017 12:08:25
[2017-07-29 12:36] LABS: HEMATOCRIT 24.4 % (39.0-51.0); HEMOGLOBIN 8.5 GM/DL (13.0-17.0)
[2017-07-29 20:50] LABS: HEMATOCRIT 22.9 % (39.0-51.0); HEMOGLOBIN 7.9 GM/DL (13.0-17.0)
[2017-07-29] MEDS: ACETAMINOPHEN/HYDROcodone 325 MG/5 MG TAB PO PRN (22:17)
[2017-07-30] VITALS (20 sets, daily range): BP systolic 114–162; BP diastolic 55–68; PULSE 72–144; RESP 11–30; TEMP 98–100.5; O2SAT 92–98
[2017-07-30] MEDS: RESP: ALBUTEROL 2.5 MG/IPRATROPIUM 0.5 MG NEB (SCH) NEB ×7 (00:03→23:15)
[2017-07-30] MEDS: SODIUM CHLOR 0.45% 1000 ML INJ 1,000 ML IV SCH ×3 (00:06→19:15)
[2017-07-30] MEDS: MORPHINE SULFATE 2 MG/ML INJ IV PUSH PRN ×7 (00:12→20:47)
[2017-07-30 00:17] LABS: HEMATOCRIT 21.8 % (39.0-51.0); HEMOGLOBIN 7.5 GM/DL (13.0-17.0)
[2017-07-30] MEDS: PANTOPRAZOLE INJ 80 MG in SODIUM CHLORIDE 0.9% INJ 100 ML IV SCH (03:31)
[2017-07-30] MEDS: CHLORHEXIDINE GLUCONATE 2 % 1 PACK (2 CLOTHS) TOP SCH ×2 (04:00→20:18)
[2017-07-30 04:04] LABS: HEMATOCRIT 22.3 % (39.0-51.0); HEMOGLOBIN 7.8 GM/DL (13.0-17.0)
[2017-07-30 04:35] LABS: BICARBONATE 25.7 MEQ/L (21.0-32.0); CALCIUM 6.6 MG/DL (8.5-10.1); CREATININE 0.74 MG/DL (0.60-1.30)
[2017-07-30 05:00] LABS: CALCIUM-PROTEIN CORRECTED 8.2 MG/DL (8.5-10.1); TOTAL PROTEIN 4.1 GM/DL (6.4-8.2)
[2017-07-30] MEDS: INSULIN NovoLIN REGULAR SUPPLEMENTAL SCALE SQ SCH ×4 (06:00→18:18)
[2017-07-30] MEDS: AZTREONAM INJ 2,000 MG in SODIUM CHLORIDE 0.9% INJ 100 ML IV SCH ×3 (06:01→21:29)
[2017-07-30] MEDS: RESP: BUDESONIDE 0.5 MG/2 ML NEB NEB SCH ×2 (07:28→20:00)
--- NOTE | 2017-07-30 07:52 | HHI.CCPN ---
Subjective Remarks/Hospital Course This is a 71-year-old male. Date of admission 08/14/2017. Past medical history includes COPD, prior CVA, hypertension and dyslipidemia and BPH. He has known moderate to severe obstructive lung disease by pulmonary function tests. He follows with Dr. Kahn. He continues to smoke cigars. Prior history of cigarette use. He is recently been using ibuprofen. He is not on any blood thinners including aspirin or VKA or NOACs he presents to [facility] after having dark bowel movements and extrinsic abdominal pain. Initially in triage patient was hypertensive but after bowel movement and became hypotensive. Received 2 L normal saline, received vancomycin, aztreonam and 3 units PRBCs. Hemoglobin was around 5. Central line was placed in the right IJ. 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 Liver cyst. Bilateral renal cysts. Upon seen the patient in ED, patient is not complaining of any symptoms. Denies abdominal pain, shortness of breath. 07/29: Transfused 4 units rbcs, Hct 20 now, continue to transfuse. Source not obvious. AAA is intact, no leak. 07/30: Two large duodenal bulb ulcers found at EGD yesterday. Gastritis present. Continue protonix gtt, adjust per GI. Hgb stable at low 20s; transfuse today. Trop elevated on admission due to anemia; Cardiology Service has evaluated. Objective Vital Signs Date Time Temp Pulse Resp B/P (MAP) Pulse Ox O2 Delivery O2 Flow Rate FiO2 07/30/17 07:28 94 Nasal Cannula 4.00 07/30/17 06:00 72 07/30/17 04:00 98.2 17 117/57 (77) Result Diagram: 07/30/17 0350 07/30/17 0350 Other Results Microbiology Date/Time Source Procedure Growth Status 07/28/17 11:15 Urine Catheterized Urine Legionella Antigen - Final PRESUMPTIVE NEGATIVE FOR LEGIONELLA P... Complete 07/28/17 11:15 Urine Catheterized Urine Streptococcus pneumoniae Antigen (M - Final PRESUMPTIVE NEGATIVE FOR STREPTOCOCCU... Complete Imaging Last Impressions Aorta CTA 07/28/17 0910 Signed Impressions: Service Date/Time: Friday, July 28, 2017 03:46 - CONCLUSION: 1. Extensive atherosclerotic plaquing of the aorta and iliac vessels with aneurysmal dilatation of the aorta and bilateral common iliac arteries. 2. No evidence for aortic dissection. 3. Hepatic and renal cyst. 4. Splenomegaly. 5. Emphysema, bilateral pulmonary infiltrates. Adalberto Mason MD Chest X-Ray 07/28/17 0000 Signed Impressions: Service Date/Time: Friday, July 28, 2017 04:05 - CONCLUSION: Emphysema. Mild left upper lobe reticular nodular infiltrate seen. Adalberto Mason MD Objective Remarks GENERAL: 71-year-old male SKIN: Warm and dry. We'll perfused HEAD: Atraumatic. Normocephalic. EYES: Pupils equal and round. No scleral icterus. No injection or drainage. ENT: No nasal bleeding or discharge. Mucous membranes pink and moist. NECK: Trachea midline. Airway widely patent. CARDIOVASCULAR: Regular rate and rhythm. S1, S2. No S4. Without murmur. No JVD. RESPIRATORY: Clear. Breath sounds equal bilaterally. No adventitious sounds. Comfortable pattern. GASTROINTESTINAL: Abdomen soft, non-tender, nondistended. Hypoactive bowel sounds are appreciated MUSCULOSKELETAL: Extremities without significant peripheral edema. No obvious deformities. NEUROLOGICAL: Motor grossly within normal limits. Five out of 5 muscle strength in the arms and legs. Conversant, O X 3. A/P Assessment and Plan Neuro/Psych: History of CVA Acetaminophen/Ofirmev for fever Avoid sedatives Neurologically intact at the present time CV: Shock- -likely hemorrhagic History of dyslipidemia Lactic acidosis History of hypertension Infrarenal AAA 3.8 x 3.7 cm Holding metoprolol tartrate 50 mg by mouth twice a day and lisinopril 20 mg by mouth daily light of hypotension Check EKG. Serial troponins Serial lactates every 6 hours until cleared Received 2 units normal saline in ED along with 3 units PRBCs. Aortogram revealed 3.7 x 3.8 cm infrarenal AAA. 1.8 cm right iliac aneurysm and 1.7 left iliac aneurysm. Left external iliac is included. Enzyme spill from severe anemia likely. In view of probably CAD and enzyme spill, we'll transfuse. Resp: Chronic respiratory failure -oxygen dependent Emphysema Pulmonary nodules Right upper/lower lobe infiltrates likely community-acquired pneumonia Nasal cannula to maintain saturations greater than equal to 90% Incentive spirometry while awake Radiographic Imaging revealed a 8.4 mm and 1.3 cm left upper lobe pulmonary nodule. - We'll need serial CT scans. Follows with pulmonology as below Also revealed right upper and lower lobe infiltrates. PFT - moderate to severe obstructive lung disease Pulmonary - Dr. Kahn GI: Likely upper GI bleed Splenomegaly 1.6 cm right lobe liver cyst Hypoalbuminemia History of inguinal hernia repair Received pantoprazole 80 mg IV 1 currently drip at 8 mg an hour GI consultation for endoscopy Serial hemoglobins every 6 hours Coags within normal limits Aortogram revealed splenomegaly 13.7 cm and liver cyst 1.6 cm. : BPH Holding Terazosin 2 mg by mouth daily light of hypotension Endo: Hyperglycemia of critical illness Sliding-scale insulin to maintain euglycemia Novulin R T6 hours low regimen Renal: Bilateral renal cyst Acute kidney injury Creatinine currently 1.1 Monitor urine output Accurate I's and O's No hydronephrosis on imaging. Avoid nephrotoxic drugs Heme: Acute blood loss anemia - normocytic Transfused 5 units PRBCs Serial hemoglobins every 6 hours ID: Community-acquired pneumonia Received vancomycin and aztreonam in ED Pending blood cultures 2, sputum, influenza, urinary Legionella and pneumococcal antigens FEN: Hypernatremia Change fluids to half-normal saline at 100 cc an hour Recheck BMP in a.m. MSK: PT evaluate and treat Access - Right IJ CVL day 1 placed by ED physician 07/28/17 Prophylaxis - GI - pantoprazole drip - DVT - SCD/holding pharmacological prophylaxis in light of likely GI bleed Overall impression: No signs of ongoing bleeding. Transfuse today. Manolo Arciniega MD Jul 30, 2017 07:52
[2017-07-30] MEDS: SODIUM CHLORIDE 0.9% FLUSH 10 ML FLUSH IV FLUSH SCH ×2 (09:00→21:29)
[2017-07-30] MEDS: LEVOFLOXACIN 750 MG PREMIX INJ 150 ML IV SCH (09:00)
[2017-07-30] MEDS: DOCUSATE SODIUM 50 MG/SENNA 8.6 MG TAB PO SCH ×2 (09:00→21:00)
--- NOTE | 2017-07-30 09:15 | PD.CARD.PN ---
Subjective Subjective Remarks Doing great, no cp Objective Medications Current Medications Medications (Trade) Dose Ordered Sig/Maulik Route Start Time Stop Time Status Last Admin (NS Flush) 2 ml UNSCH PRN IVF 07/28/17 03:00 Pantoprazole Sodium 80 mg/ Sodium Chloride 100 ml @ 10 mls/hr Q10H IV 07/28/17 04:15 07/30/17 03:31 (NS Flush) 2 ml UNSCH PRN IV FLUSH 07/28/17 06:30 (NS Flush) 2 ml BID IV FLUSH 07/28/17 09:00 07/30/17 09:00 (Tylenol) 650 mg Q6H PRN PO 07/28/17 06:30 ([place] 5-325 Mg) 1 tab Q4H PRN PO 07/28/17 06:30 07/29/17 22:17 (Morphine Inj) 2 mg Q2H PRN IV PUSH 07/28/17 06:30 07/30/17 09:00 (Zofran Inj) 4 mg Q6H PRN IV PUSH 07/28/17 06:30 Miscellaneous Information 1 Q361D XX 07/28/17 06:30 07/28/17 08:45 (Chlorhexidine 2% Cloth) 3 pack Taper DAILY@04 TOP 07/29/17 04:00 07/25/18 03:59 (Chlorhexidine 2% Cloth) 3 pack UNSCH PRN TOP 07/28/17 06:30 ([place]-Colace) 1 tab BID PO 07/28/17 09:00 07/30/17 09:00 (Milk Of Magnesia Liq) 30 ml Q12H PRN PO 07/28/17 06:30 (Senokot) 17.2 mg Q12H PRN PO 07/28/17 06:30 (Dulcolax Supp) 10 mg DAILY PRN RECTAL 07/28/17 06:30 (Lactulose Liq) 30 ml DAILY PRN PO 07/28/17 06:30 (Duoneb Neb) 1 ampule Q4HR NEB NEB 07/28/17 08:00 07/30/17 07:28 (Albuterol Neb) 2.5 mg Q2HR NEB PRN NEB 07/28/17 06:30 Potassium Chloride 100 ml @ 50 mls/hr Q2H PRN IV 07/28/17 07:00 2/4/18 09:39 Potassium Chloride 100 ml @ 50 mls/hr Q2H PRN IV 07/28/17 07:00 (K-Lyte Cl Eff) 50 meq UNSCH PRN PO 07/28/17 07:00 Potassium Chloride 100 ml @ 25 mls/hr UNSCH PRN IV 07/28/17 07:00 Potassium Chloride 100 ml @ 50 mls/hr Q2H PRN IV 07/28/17 07:00 Magnesium Sulfate 4 gm/Sodium Chloride 100 ml @ 50 mls/hr UNSCH PRN IV 07/28/17 07:00 (Mag-Ox) 800 mg UNSCH PRN PO 07/28/17 07:00 Magnesium Sulfate 2 gm/Sodium Chloride 100 ml @ 50 mls/hr UNSCH PRN IV 07/28/17 07:00 (K-Phos) 2,000 mg Q4H PRN PO 07/28/17 07:00 Sodium Phosphate 30 mmol/Sodium Chloride 250 ml @ 42 mls/hr UNSCH PRN IV 07/28/17 07:00 (K-Phos) 2,000 mg UNSCH PRN PO/TUBE 07/28/17 07:00 Potassium Phosphate 30 mmol/ Sodium Chloride 260 ml @ 42 mls/hr UNSCH PRN IV 07/28/17 07:00 (D50w (Vial) Inj) 50 ml UNSCH PRN IV PUSH 07/28/17 07:00 (Glucagon Inj) 1 mg UNSCH PRN OTHER 07/28/17 07:00 (NovoLIN R SUPPLEMENTAL SCALE) 1 Q6HR SQ 07/28/17 12:00 Acetaminophen 100 ml @ 400 mls/hr Q8HR PRN IV 07/28/17 07:00 07/29/17 21:19 (Pulmicort Respule Neb) 0.5 mg Q12HR NEB NEB 07/28/17 08:00 07/30/17 07:28 Aztreonam 2000 mg/ Sodium Chloride 100 ml @ 200 mls/hr Q8H IV 07/28/17 13:00 07/30/17 06:01 Levofloxacin/ Dextrose 150 ml @ 100 mls/hr Q24H IV 07/28/17 08:00 07/30/17 09:00 Sodium Chloride 1,000 ml @ 100 mls/hr Q10H IV 07/28/17 07:15 07/30/17 00:06 Miscellaneous Information ALL NURSING DEPARTME... UNSCH PRN .XX 07/29/17 11:12 07/30/17 11:11 Vital Signs / I&O Vital Signs Date Time Temp Pulse Resp B/P (MAP) Pulse Ox O2 Delivery O2 Flow Rate FiO2 07/30/17 07:28 94 Nasal Cannula 4.00 07/30/17 06:00 72 07/30/17 04:00 72 07/30/17 04:00 98.2 72 17 117/57 (77) 94 07/30/17 03:37 13 07/30/17 02:00 73 07/30/17 00:00 73 07/30/17 00:00 98.4 73 11 114/56 (75) 97 07/29/17 23:15 18 07/29/17 22:00 79 07/29/17 21:49 13 07/29/17 20:00 98.8 93 20 132/61 (84) 95 07/29/17 20:00 95 Nasal Cannula 4.00 07/29/17 20:00 93 07/29/17 19:00 97 Nasal Cannula 3.00 07/29/17 18:00 94 07/29/17 16:00 87 07/29/17 16:00 100.3 87 16 135/62 (86) 97 07/29/17 14:00 91 07/29/17 12:28 95 Nasal Cannula 4.00 07/29/17 12:00 90 07/29/17 12:00 98.8 90 18 137/64 (88) 95 07/29/17 12:00 95 Nasal Cannula 3.00 07/29/17 11:35 98.8 88 26 123/58 97 07/29/17 11:30 88 18 115/56 (75) 93 Nasal Cannula 3 07/29/17 11:12 98.2 96 18 111/58 (75) 94 Nasal Cannula 3 07/29/17 10:00 97 07/29/17 09:45 98.8 97 18 143/63 96 I/O 07/29/17 07/29/17 07/29/17 07/30/17 07/30/17 07/30/17 07:00 15:00 23:00 07:00 15:00 23:00 Intake Total 100 ml 1992 ml 1096 ml Output Total 500 ml 285 ml 275 ml Balance -400 ml 1707 ml 821 ml Intake Oral 0 ml 250 ml 180 ml IV Total 100 ml 942 ml 916 ml Packed Cells 400 ml Other 400 ml Output Urine Total 500 ml 285 ml 275 ml # Voids 1 2 # Bowel Movements 0 0 Physical Exam GENERAL: This is a well-nourished, well-developed patient, in no apparent distress. CARDIOVASCULAR: Regular rate and rhythm without murmurs, gallops, or rubs. RESPIRATORY: Clear to auscultation. Breath sounds equal bilaterally. No wheezes , rales, or rhonchi. GASTROINTESTINAL: Abdomen soft, non-tender, nondistended. Normal active bowel sounds MUSCULOSKELETAL: Extremities without clubbing, cyanosis, or edema. NEURO: Alert & Oriented x4 to person, place, time, situation. Moves all ext x4 Laboratory Laboratory Tests Test 07/29/17 12:05 07/29/17 20:30 07/30/17 00:00 07/30/17 03:50 Hemoglobin 8.5 GM/DL 7.9 GM/DL 7.5 GM/DL 7.8 GM/DL Hematocrit 24.4 % 22.9 % 21.8 % 22.3 % Blood Urea Nitrogen 18 MG/DL Creatinine 0.74 MG/DL Random Glucose 93 MG/DL Total Protein 4.1 GM/DL Calcium Level 6.6 MG/DL Sodium Level 144 MEQ/L Potassium Level 3.4 MEQ/L Chloride Level 112 MEQ/L Carbon Dioxide Level 25.7 MEQ/L Anion Gap 6 MEQ/L Estimat Glomerular Filtration Rate 105 ML/MIN Protein Corrected Calcium 8.2 MG/DL Imaging Last Impressions Aorta CTA 07/28/17 0329 Signed Impressions: Service Date/Time: Friday, July 28, 2017 03:46 - CONCLUSION: 1. Extensive atherosclerotic plaquing of the aorta and iliac vessels with aneurysmal dilatation of the aorta and bilateral common iliac arteries. 2. No evidence for aortic dissection. 3. Hepatic and renal cyst. 4. Splenomegaly. 5. Emphysema, bilateral pulmonary infiltrates. Adalberto Mason MD Chest X-Ray 07/28/17 0000 Signed Impressions: Service Date/Time: Friday, July 28, 2017 04:05 - CONCLUSION: Emphysema. Mild left upper lobe reticular nodular infiltrate seen. Adalberto Mason MD Assessment and Plan Problem List: (1) Troponin level elevated ICD Codes: R74.8 - Abnormal levels of other serum enzymes Plan: Will try for nuclear stress tomorrow presuming HCT remains stable. (2) Duodenal ulcer ICD Codes: K26.9 - Duodenal ulcer, unspecified as acute or chronic, without hemorrhage or perforation Plan: Per GI: Two ulcers measuring 15 x 20mm in size were found in the duodenal bulb; Argon plasma coagulation was applied to the sites; with complete hemostasis achieved; biopsies were taken (3) Acute blood loss anemia ICD Codes: D62 - Acute posthemorrhagic anemia Plan: getting blood today, HCT not quite stabilized yet Weston Mejia MD Jul 30, 2017 09:15
[2017-07-30 12:43] LABS: HEMOGLOBIN 8.9 GM/DL (13.0-17.0)
--- NOTE | 2017-07-30 12:57 | PD.WCN.NOT ---
Wound Consult Description: Received wound care consult from Doctor Ramsey regarding pressure ulcer of the sacrum Communicated with: [facility] and Doctor Demian Recommendation: 1.Please cleanse wound to R buttock with wound cleanser or normal saline and pat dry. Apply pea sized amount of hydrogel to wound bed only and cover with oil emulsion gauze(adaptic) in a single layer cut to fit just over wound bed. Apply Calazime barrier cream to periwound. Cover wound with 2x2 gauze pad and secure dressing with ABD pad and paper tape. Please apply skin prep before applying tape to skin. Change dressing daily or PRN if saturated or dislodged. 2.Turn patient every 2 hours or PRN for comfort and offloading of pressure from rafiq prominences. Additional Information: Patient seen on [address] [place] [address] for evaluation of pressure ulcer to sacral area around 11:30.Patient able to turn with minimal assist from script writer to L side for wound assessment. Patient is noted with thick layer of calazime barrier cream to bilateral buttocks, gluteal cleft and perineal area. Some barrier cream was removed with saline and gauze pad gently to reveal wound to R buttock. Wound presents with ~50% pink tissue and ~50% adipose tissue. Cleansed wound with normal saline and pat dry. Wound measures 1.9cm x 1cm x ~0.1cm. Wound bed is dry , non draining without odor. Periwound is unremarkable. Slightly denuded skin is noted to bilateral inner buttocks and perineal area. Applied Hydrogel to wound bed in a peas sized amount. Covered with oil emulsion gauze (adaptic), cut to fit over wound bed. Calazime barrier cream was applied to periwound. Covered wound with 2x2 gauze pad and secured dressing with ABD pad and paper tape.Skin prep was applied to skin before tape was applied. Darcy Gordillo [facility] Jul 30, 2017 12:57
--- NOTE | 2017-07-30 13:17 | HHI.GIFU ---
Subjective Remarks Pt resting in bed. Denies any GI complaints at this time. Denies BM or emesis since procedure. (Rachele Love) Objective Vitals I&O Vital Signs Date Time Temp Pulse Resp B/P (MAP) Pulse Ox O2 Delivery O2 Flow Rate FiO2 07/30/17 12:00 97 Nasal Cannula 4.00 07/30/17 09:45 99.0 103 19 131/60 95 07/30/17 07:30 97 Nasal Cannula 4.00 07/30/17 07:28 94 Nasal Cannula 4.00 07/30/17 06:00 72 07/30/17 04:00 72 07/30/17 04:00 98.2 72 17 117/57 (77) 94 07/30/17 03:37 13 07/30/17 02:00 73 07/30/17 00:00 73 07/30/17 00:00 98.4 73 11 114/56 (75) 97 07/29/17 23:15 18 07/29/17 22:00 79 07/29/17 21:49 13 07/29/17 20:00 98.8 93 20 132/61 (84) 95 07/29/17 20:00 95 Nasal Cannula 4.00 07/29/17 20:00 93 07/29/17 19:00 97 Nasal Cannula 3.00 07/29/17 18:00 94 07/29/17 16:00 87 07/29/17 16:00 100.3 87 16 135/62 (86) 97 07/29/17 14:00 91 I/O 07/29/17 07/29/17 07/29/17 07/30/17 07/30/17 07/30/17 07:00 15:00 23:00 07:00 15:00 23:00 Intake Total 100 ml 1992 ml 1096 ml 700 ml Output Total 500 ml 285 ml 275 ml Balance -400 ml 1707 ml 821 ml 700 ml Intake Oral 0 ml 250 ml 180 ml 0 ml IV Total 100 ml 942 ml 916 ml 300 ml Packed Cells 400 ml 400 ml Other 400 ml Output Urine Total 500 ml 285 ml 275 ml # Voids 1 2 # Bowel Movements 0 0 Laboratory Laboratory Tests Test 07/29/17 20:30 07/30/17 00:00 07/30/17 03:50 07/30/17 12:25 Hemoglobin 7.9 7.5 7.8 8.9 Hematocrit 22.9 21.8 22.3 25.0 Blood Urea Nitrogen 18 Creatinine 0.74 Random Glucose 93 Total Protein 4.1 Calcium Level 6.6 Sodium Level 144 Potassium Level 3.4 Chloride Level 112 Carbon Dioxide Level 25.7 Anion Gap 6 Estimat Glomerular Filtration Rate 105 Protein Corrected Calcium 8.2 Date/Time Source Procedure Growth Status 07/28/17 12:30 Blood Peripheral Aerobic Blood Culture - Preliminary NO GROWTH IN 2 DAYS Resulted 07/28/17 12:30 Blood Peripheral Anaerobic Blood Culture - Preliminary NO GROWTH IN 2 DAYS Resulted 07/28/17 11:15 Urine Catheterized Urine Urine Culture - Final NO GROWTH IN 48 HOURS. Complete Imaging Last Impressions Aorta CTA 07/28/17 0329 Signed Impressions: Service Date/Time: Friday, July 28, 2017 03:46 - CONCLUSION: 1. Extensive atherosclerotic plaquing of the aorta and iliac vessels with aneurysmal dilatation of the aorta and bilateral common iliac arteries. 2. No evidence for aortic dissection. 3. Hepatic and renal cyst. 4. Splenomegaly. 5. Emphysema, bilateral pulmonary infiltrates. Adalberto Mason MD Chest X-Ray 07/28/17 0000 Signed Impressions: Service Date/Time: Friday, July 28, 2017 04:05 - CONCLUSION: Emphysema. Mild left upper lobe reticular nodular infiltrate seen. Adalberto Mason MD Physical Exam HEENT: Normocephalic; atraumatic; no jaundice CHEST: Even/unlabored CARDIAC: RRR ABDOMEN: Distended, soft, nontender, bowel sounds active EXTREMITIES: No clubbing, cyanosis, or edema. SKIN: Normal; no rash; no jaundice. PST SPECIALIST: No focal deficits; alert and oriented times three. (Rachele Love) Assessment and Plan Plan - Profound anemia/ acute GI bleed- black stools for few days. Admits to taking Advil 6 a day X 6 weeks, hgb on admission 4.9 Received 3 units of blood, no recent labs done, last black BM last night, PPI drip started. - Right upper/lower lobe infiltrates likely community-acquired pneumonia- on abx - BRANDIN- likely secondary to GI bleed, high BUN indicative of upper GI bleed - Hyponatremia- per CCM - High lactic acid- likely due to hemorrhagic shock - Past medical history includes emphysema, Chronic respiratory failure -oxygen dependent, COPD, prior CVA, hypertension and dyslipidemia, per [facility] (07/30) --> S/P EGD --> Esophagus appeared normal. Erythematous gastritis in the gastric antrum. Two ulcers measuring 15 x 20mm in size were found in the duodenal bulb. Argon plasma coagulation was applied to site with complete hemostasis. Biopsy pending. H/ H currently 8.9. Last unit of PRBCs transfused this AM. Pt remains on Protonix gtt. No obvious continuation of GIB, pt denies BM or emesis. Plan: Continue to monitor H/H GDA embolization if rebleeding Transfuse to keep hgb over 8 DC Protonix gtt Protonix IV push EGD biopsy pending [place] healthy diet, NPO after MN per cardiology Continue current supportive care Pt has been seen and examined by myself and Dr. Ac and this note is written on her behalf (Rachele Love) Physician Comments seen, examined agree with above if rebleeding needs angiogram with embolization (Diana Ac MD) Rachele Love Jul 30, 2017 13:17 Diana Ac MD Jul 30, 2017 17:06
[2017-07-30] MEDS: PANTOPRAZOLE SODIUM 40 MG VIAL IV PUSH SCH (14:00)
--- NOTE | 2017-07-30 17:04 | ECHRPT ---
Indication: elev trop CONCLUSIONS Normal left ventricular size. The left ventricular systolic function is low normal with an estimated ejection fraction in the rang e of 50- 55%. [id number] mitral valve regurgitation. The aortic valve is not well visualized. No aortic valve regurgitation. No aortic valve stenosis. There is mild tricuspid valve regurgitation. The estimated pulmonary arterial pressure is 27.3 mmHg. BP: / HR: Rhythm: MEASUREMENTS (Male / Female) Normal Values Technical Quality:Technically difficult study 2D ECHO LV Diastolic Diameter PLAX 5.0 cm 4.2 - 5.9 / 3.9 - 5.3 cm LV Systolic Diameter PLAX 3.9 cm IVS Diastolic Thickness 1.2 cm 0.6 - 1.0 / 0.6 - 0.9 cm LVPW Diastolic Thickness 1.1 cm 0.6 - 1.0 / 0.6 - 0.9 cm LV Relative Wall Thickness 0.5 RV Internal Dim ED PLAX 3.0 cm M-MODE Aortic Root Diameter MM 3.8 cm LA Systolic Diameter MM 3.7 cm LA Ao Ratio MM 1.0 AV Cusp Separation MM 2.7 cm DOPPLER Mitral E Point Velocity 85.9 cm/s Mitral A Point Velocity 110.0 cm/s Mitral E to A Ratio 0.8 LV E' Lateral Velocity 9.5 cm/s Mitral E to LV E' Lateral Ratio 9.1 LV E' Septal Velocity 9.1 cm/s Mitral E to LV E' Septal Ratio 9.5 TR Peak Velocity 208.0 cm/s TR Peak Gradient 17.3 mmHg Right Atrial Pressure 10.0 mmHg Pulmonary Artery Systolic Pressu 27.3 mmHg Right Ventricular Systolic Press 27.3 mmHg FINDINGS LEFT VENTRICLE Normal left ventricular size. The left ventricular systolic function is low normal with an estimated ejection fraction in the rang e of 50- 55%. RIGHT VENTRICLE Normal right ventricular size and systolic function. LEFT ATRIUM The left atrial size is normal. RIGHT ATRIUM The right atrial size is normal. ATRIAL SEPTUM Normal atrial septal thickness without atrial level shunting by limited color doppler interrogation. AORTA The aortic root and proximal ascending aorta are normal in size on limited imaging. MITRAL VALVE Structurally normal mitral valve. [id number] mitral valve regurgitation. AORTIC VALVE The aortic valve is not well visualized. No aortic valve regurgitation. No aortic valve stenosis. TRICUSPID VALVE Structurally normal tricuspid valve. There is mild tricuspid valve regurgitation. The estimated pulmonary arterial pressure is 27.3 mmHg. PULMONARY VALVE No pulmonary valve regurgitation or stenosis. VESSELS The inferior vena cava is normal in size. PERICARDIUM No pericardial effusion. Louis Davis MD, FACC (Electronically Signed) Final Date:30 July 2017 17:04
[2017-07-30 19:21] LABS: HEMATOCRIT 26.2 % (39.0-51.0); HEMOGLOBIN 8.8 GM/DL (13.0-17.0)
[2017-07-30] MEDS ORDERED: DILTIAZEM HCL 25 MG/5 ML VIAL ONE (21:10)
[2017-07-30] MEDS ORDERED: DILTIAZEM HCL 25 MG/5 ML (Bolus) IV PUSH PRN (21:30)
[2017-07-30] MEDS ORDERED: DILTIAZEM 125 MG/NS 100 ML IV PRN ×2 (21:30)
[2017-07-31] VITALS (15 sets, daily range): BP systolic 98–148; BP diastolic 54–67; PULSE 82–109; RESP 17–31; TEMP 98.3–99.1; O2SAT 94–97
[2017-07-31] MEDS: SODIUM CHLOR 0.45% 1000 ML INJ 1,000 ML IV SCH (00:31)
[2017-07-31] MEDS: PANTOPRAZOLE SODIUM 40 MG VIAL IV PUSH SCH ×2 (01:12→14:00)
[2017-07-31] MEDS: MORPHINE SULFATE 2 MG/ML INJ IV PUSH PRN ×5 (01:12→23:53)
[2017-07-31] MEDS: RESP: ALBUTEROL 2.5 MG/IPRATROPIUM 0.5 MG NEB (SCH) NEB ×5 (04:08→19:22)
[2017-07-31] MEDS: AZTREONAM INJ 2,000 MG in SODIUM CHLORIDE 0.9% INJ 100 ML IV SCH ×3 (04:17→20:46)
[2017-07-31 04:23] LABS: HEMATOCRIT 27.6 % (39.0-51.0); HEMOGLOBIN 9.4 GM/DL (13.0-17.0)
[2017-07-31 04:54] LABS: BICARBONATE 25.5 MEQ/L (21.0-32.0); CALCIUM 7.3 MG/DL (8.5-10.1); CREATININE 0.72 MG/DL (0.60-1.30); MAGNESIUM 1.9 MG/DL (1.5-2.5); PHOSPHORUS 2.1 MG/DL (2.5-4.9)
[2017-07-31 05:03] LABS: TROPONIN I 2.18 NG/ML (0.02-0.05)
[2017-07-31] MEDS ORDERED: SODIUM CHLORID 0.9% 500 ML INJ 500 ML IV SCH (05:30)
[2017-07-31 05:31] LABS: CALCIUM-PROTEIN CORRECTED 8.7 MG/DL (8.5-10.1); TOTAL PROTEIN 4.6 GM/DL (6.4-8.2)
[2017-07-31] MEDS: INSULIN NovoLIN REGULAR SUPPLEMENTAL SCALE SQ SCH ×4 (06:00→18:00)
[2017-07-31] MEDS: POTASSIUM CHLOR 40 MEQ PREMIX 100 ML IV PRN (06:04)
[2017-07-31] MEDS: RESP: ALBUTEROL 2.5 MG/3 ML NEB (PRN) NEB (06:10)
[2017-07-31] MEDS ORDERED: TERBUTALINE INJ 1 MG/ML AMP SQ PRN (07:00)
[2017-07-31] MEDS ORDERED: FUROSEMIDE 100 MG/10 ML VIAL IV PUSH ONE (07:00)
[2017-07-31] MEDS ORDERED: PHENYLEPHRINE INJ 80 MG in DEXTROSE 5% IN WATE 500 ML INJ 492 ML IV PRN ×2 (07:00)
[2017-07-31] MEDS: RESP: BUDESONIDE 0.5 MG/2 ML NEB NEB SCH ×2 (07:37→19:22)
--- NOTE | 2017-07-31 07:37 | HHI.CCPN ---
Subjective Remarks/Hospital Course This is a 71-year-old male. Date of admission 08/14/2017. Past medical history includes COPD, prior CVA, hypertension and dyslipidemia and BPH. He has known moderate to severe obstructive lung disease by pulmonary function tests. He follows with Dr. Kahn. He continues to smoke cigars. Prior history of cigarette use. He is recently been using ibuprofen. He is not on any blood thinners including aspirin or VKA or NOACs he presents to [facility] after having dark bowel movements and extrinsic abdominal pain. Initially in triage patient was hypertensive but after bowel movement and became hypotensive. Received 2 L normal saline, received vancomycin, aztreonam and 3 units PRBCs. Hemoglobin was around 5. Central line was placed in the right IJ. 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 Liver cyst. Bilateral renal cysts. Upon seen the patient in ED, patient is not complaining of any symptoms. Denies abdominal pain, shortness of breath. 07/29: Transfused 4 units rbcs, Hct 20 now, continue to transfuse. Source not obvious. AAA is intact, no leak. 07/30: Two large duodenal bulb ulcers found at EGD yesterday. Gastritis present. Continue protonix gtt, adjust per GI. Hgb stable at low 20s; transfuse today. Trop elevated on admission due to anemia; Cardiology Service has evaluated. 07/31: A-fib and enzyme bump again last night. Back in NSR now. Fluid overload as well - diurese and replace K. He has bumped cardiac markers twice but Technetium stress scan is benign, low risk. Objective Vital Signs Date Time Temp Pulse Resp B/P (MAP) Pulse Ox O2 Delivery O2 Flow Rate FiO2 07/31/17 06:55 97 98/54 07/31/17 06:11 97 Nasal Cannula 3.00 07/31/17 04:00 98.8 20 Intake and Output 07/31/17 07/31/17 08/01/17 08:00 16:00 00:00 Intake Total 3000 ml Output Total 500 ml Balance 2500 ml Result Diagram: 07/31/17 0405 07/31/17 0405 Other Results Microbiology Date/Time Source Procedure Growth Status 07/28/17 11:15 Urine Catheterized Urine Urine Culture - Final NO GROWTH IN 48 HOURS. Complete 07/28/17 11:15 Urine Catheterized Urine Legionella Antigen - Final PRESUMPTIVE NEGATIVE FOR LEGIONELLA P... Complete 07/28/17 11:15 Urine Catheterized Urine Streptococcus pneumoniae Antigen (M - Final PRESUMPTIVE NEGATIVE FOR STREPTOCOCCU... Complete Imaging Last Impressions Aorta CTA 07/28/17 0329 Signed Impressions: Service Date/Time: Friday, July 28, 2017 03:46 - CONCLUSION: 1. Extensive atherosclerotic plaquing of the aorta and iliac vessels with aneurysmal dilatation of the aorta and bilateral common iliac arteries. 2. No evidence for aortic dissection. 3. Hepatic and renal cyst. 4. Splenomegaly. 5. Emphysema, bilateral pulmonary infiltrates. Adalberto Mason MD Chest X-Ray 07/28/17 0000 Signed Impressions: Service Date/Time: Friday, July 28, 2017 04:05 - CONCLUSION: Emphysema. Mild left upper lobe reticular nodular infiltrate seen. Adalberto Mason MD Objective Remarks GENERAL: 71-year-old male SKIN: Warm and dry. We'll perfused HEAD: Atraumatic. Normocephalic. EYES: Pupils equal and round. No scleral icterus. No injection or drainage. ENT: No nasal bleeding or discharge. Mucous membranes pink and moist. NECK: Trachea midline. Airway widely patent. CARDIOVASCULAR: Regular rate and rhythm. S1, S2. No S4. Without murmur. No JVD. RESPIRATORY: Diffuse crackles. Breath sounds equal bilaterally. Labored. GASTROINTESTINAL: Abdomen soft, non-tender, nondistended. Active bowel sounds are appreciated MUSCULOSKELETAL: Extremities without significant peripheral edema. No obvious deformities. NEUROLOGICAL: Motor grossly within normal limits. Five out of 5 muscle strength in the arms and legs. Conversant, O X 3. A/P Assessment and Plan Neuro/Psych: History of CVA Acetaminophen/Ofirmev for fever Avoid sedatives Neurologically intact at the present time CV: Shock- -likely hemorrhagic History of dyslipidemia Lactic acidosis History of hypertension Infrarenal AAA 3.8 x 3.7 cm Holding metoprolol tartrate 50 mg by mouth twice a day and lisinopril 20 mg by mouth daily light of hypotension Check EKG. Serial troponins Serial lactates every 6 hours until cleared Received 2 units normal saline in ED along with 3 units PRBCs. Aortogram revealed 3.7 x 3.8 cm infrarenal AAA. 1.8 cm right iliac aneurysm and 1.7 left iliac aneurysm. Left external iliac is included. Enzyme spill from severe anemia likely. In view of probably CAD and enzyme spill, we'll transfuse. Trop elevation again 07/31 after episode of a-fib. T99 scan benign, low risk. Resp: Chronic respiratory failure -oxygen dependent Emphysema Pulmonary nodules Right upper/lower lobe infiltrates likely community-acquired pneumonia Nasal cannula to maintain saturations greater than equal to 90% Incentive spirometry while awake Radiographic Imaging revealed a 8.4 mm and 1.3 cm left upper lobe pulmonary nodule. - We'll need serial CT scans. Follows with pulmonology as below Also revealed right upper and lower lobe infiltrates. Fluid overload 07/31 PFT - moderate to severe obstructive lung disease Pulmonary - Dr. Kahn GI: Likely upper GI bleed Splenomegaly 1.6 cm right lobe liver cyst Hypoalbuminemia History of inguinal hernia repair Received pantoprazole 80 mg IV 1 currently drip at 8 mg an hour GI consultation for endoscopy Serial hemoglobins every 6 hours Coags within normal limits Aortogram revealed splenomegaly 13.7 cm and liver cyst 1.6 cm. : BPH Holding Terazosin 2 mg by mouth daily light of hypotension Endo: Hyperglycemia of critical illness Sliding-scale insulin to maintain euglycemia Novulin R T6 hours low regimen Renal: Bilateral renal cyst Acute kidney injury Creatinine currently 1.1 Monitor urine output Accurate I's and O's No hydronephrosis on imaging. Avoid nephrotoxic drugs Heme: Acute blood loss anemia - normocytic Transfused 5 units PRBCs Serial hemoglobins every 6 hours Hgb stable for 3 days now 07/31 ID: Community-acquired pneumonia Received vancomycin and aztreonam in ED Pending blood cultures 2, sputum, influenza, urinary Legionella and pneumococcal antigens -> all negative FEN: Hypernatremia D/C fluids to half-normal saline at 100 cc an hour Recheck BMP in a.m. MSK: PT evaluate and treat Access - Right IJ CVL day 5 placed by ED physician 07/28/17 Prophylaxis - GI - pantoprazole drip - DVT - SCD/holding pharmacological prophylaxis in light of GI bleed Overall impression: Requires additional diuresis for fluid overload today. Cardiac workup in progress -> stress scan benign. Transfer. Manolo Arciniega MD Jul 31, 2017 07:37
--- NOTE | 2017-07-31 07:49 | PD.CARD.PN ---
Subjective Subjective Remarks On pt went into afib rvr, also had a run of NSVT; currently no sx Objective Medications Current Medications Medications (Trade) Dose Ordered Sig/Maulik Route Start Time Stop Time Status Last Admin (NS Flush) 2 ml UNSCH PRN IVF 07/28/17 03:00 (NS Flush) 2 ml UNSCH PRN IV FLUSH 07/28/17 06:30 (NS Flush) 2 ml BID IV FLUSH 07/28/17 09:00 07/30/17 21:29 (Tylenol) 650 mg Q6H PRN PO 07/28/17 06:30 (Orient 5-325 Mg) 1 tab Q4H PRN PO 07/28/17 06:30 07/29/17 22:17 (Morphine Inj) 2 mg Q2H PRN IV PUSH 07/28/17 06:30 07/31/17 04:18 (Zofran Inj) 4 mg Q6H PRN IV PUSH 07/28/17 06:30 Miscellaneous Information 1 Q361D XX 07/28/17 06:30 07/28/17 08:45 (Chlorhexidine 2% Cloth) 3 pack Taper DAILY@04 TOP 07/29/17 04:00 07/25/18 03:59 (Chlorhexidine 2% Cloth) 3 pack UNSCH PRN TOP 07/28/17 06:30 (Fallon-Colace) 1 tab BID PO 07/28/17 09:00 07/30/17 09:00 (Milk Of Magnesia Liq) 30 ml Q12H PRN PO 07/28/17 06:30 (Senokot) 17.2 mg Q12H PRN PO 07/28/17 06:30 (Dulcolax Supp) 10 mg DAILY PRN RECTAL 07/28/17 06:30 (Lactulose Liq) 30 ml DAILY PRN PO 07/28/17 06:30 (Duoneb Neb) 1 ampule Q4HR NEB NEB 07/28/17 08:00 07/31/17 07:37 (Albuterol Neb) 2.5 mg Q2HR NEB PRN NEB 07/28/17 06:30 07/31/17 06:10 Potassium Chloride 100 ml @ 50 mls/hr Q2H PRN IV 07/28/17 07:00 07/31/17 06:04 Potassium Chloride 100 ml @ 50 mls/hr Q2H PRN IV 07/28/17 07:00 (K-Lyte Cl Eff) 50 meq UNSCH PRN PO 07/28/17 07:00 Potassium Chloride 100 ml @ 25 mls/hr UNSCH PRN IV 07/28/17 07:00 Potassium Chloride 100 ml @ 50 mls/hr Q2H PRN IV 07/28/17 07:00 Magnesium Sulfate 4 gm/Sodium Chloride 100 ml @ 50 mls/hr UNSCH PRN IV 07/28/17 07:00 (Mag-Ox) 800 mg UNSCH PRN PO 07/28/17 07:00 Magnesium Sulfate 2 gm/Sodium Chloride 100 ml @ 50 mls/hr UNSCH PRN IV 07/28/17 07:00 (K-Phos) 2,000 mg Q4H PRN PO 07/28/17 07:00 Sodium Phosphate 30 mmol/Sodium Chloride 250 ml @ 42 mls/hr UNSCH PRN IV 07/28/17 07:00 (K-Phos) 2,000 mg UNSCH PRN PO/TUBE 07/28/17 07:00 Potassium Phosphate 30 mmol/ Sodium Chloride 260 ml @ 42 mls/hr UNSCH PRN IV 07/28/17 07:00 (D50w (Vial) Inj) 50 ml UNSCH PRN IV PUSH 07/28/17 07:00 (Glucagon Inj) 1 mg UNSCH PRN OTHER 07/28/17 07:00 (NovoLIN R SUPPLEMENTAL SCALE) 1 Q6HR SQ 07/28/17 12:00 07/30/17 18:18 Acetaminophen 100 ml @ 400 mls/hr Q8HR PRN IV 07/28/17 07:00 07/29/17 21:19 (Pulmicort Respule Neb) 0.5 mg Q12HR NEB NEB 07/28/17 08:00 07/31/17 07:37 Aztreonam 2000 mg/ Sodium Chloride 100 ml @ 200 mls/hr Q8H IV 07/28/17 13:00 07/31/17 04:17 Levofloxacin/ Dextrose 150 ml @ 100 mls/hr Q24H IV 07/28/17 08:00 07/30/17 09:00 (Protonix Inj) 40 mg Q12H IV PUSH 07/30/17 14:00 07/31/17 01:12 (Cardizem Inj) 20 MG undiluted IV ove... BOLUS PRN IV PUSH 07/30/17 21:30 07/31/17 21:29 07/30/17 21:15 Diltiazem HCl 125 mg/Sodium Chloride 125 ml @ 5 mls/hr TITRATE PRN IV 07/30/17 21:30 07/30/17 21:24 Potassium Chloride 100 ml @ 50 mls/hr Q2H IV 07/31/17 07:00 07/31/17 10:59 Phenylephrine HCl 80 mg/Dextrose 500 ml @ 15 mls/hr TITRATE PRN IV 07/31/17 07:00 (Brethine Inj) 1 mg UNSCH PRN SQ 07/31/17 07:00 Magnesium Sulfate/ Dextrose 100 ml @ 100 mls/hr Q1H IV 07/31/17 08:00 07/31/17 09:59 Vital Signs / I&O Vital Signs Date Time Temp Pulse Resp B/P (MAP) Pulse Ox O2 Delivery O2 Flow Rate FiO2 07/31/17 07:37 95 Nasal Cannula 4.00 07/31/17 06:55 97 98/54 07/31/17 06:26 111 07/31/17 06:11 97 Nasal Cannula 3.00 07/31/17 06:04 103 107/50 07/31/17 06:00 103 07/31/17 04:53 85 81/47 07/31/17 04:10 94 Nasal Cannula 3.00 07/31/17 04:00 82 07/31/17 04:00 98.8 82 20 98/54 (69) 96 07/31/17 02:00 88 07/31/17 01:29 28 07/31/17 00:59 80 109/52 07/31/17 00:30 87 109/72 07/31/17 00:00 98.6 109 26 124/58 (80) 94 07/31/17 00:00 109 07/30/17 23:16 94 Nasal Cannula 3.00 07/30/17 23:15 101 20 121/58 (79) 95 07/30/17 23:00 93 22 114/55 (74) 92 07/30/17 22:45 91 19 116/57 (76) 92 07/30/17 22:15 112 22 118/57 (77) 92 07/30/17 22:00 104 21 123/56 (78) 93 07/30/17 22:00 144 07/30/17 21:42 113 117/55 07/30/17 21:24 113 124/60 07/30/17 20:00 100.5 101 30 151/68 (95) 95 07/30/17 20:00 101 07/30/17 19:00 95 Nasal Cannula 4.00 Humidified 07/30/17 18:27 134/62 (86) 07/30/17 18:00 88 07/30/17 16:00 98.0 88 16 162/67 (98) 94 07/30/17 16:00 85 07/30/17 15:55 98 Nasal Cannula 3.00 07/30/17 12:00 97 Nasal Cannula 4.00 07/30/17 12:00 99.0 87 15 116/65 (82) 96 07/30/17 12:00 87 07/30/17 10:00 110 07/30/17 09:45 99.0 103 19 131/60 95 07/30/17 08:00 78 07/30/17 08:00 98.0 78 13 125/60 (81) 94 I/O 07/30/17 07/30/17 07/30/17 07/31/17 07/31/17 07/31/17 07:00 15:00 23:00 07:00 15:00 23:00 Intake Total 1700 ml 1330 ml 3000 ml Output Total 980 ml 500 ml Balance 1700 ml 350 ml 2500 ml Intake Oral 0 ml 850 ml 100 ml IV Total 1300 ml 80 ml 2900 ml Packed Cells 400 ml 400 ml Output Urine Total 980 ml 500 ml # Voids 5 # Bowel Movements 0 0 Physical Exam GENERAL: This is a well-nourished, well-developed patient, in no apparent distress. CARDIOVASCULAR: Regular rate and rhythm without murmurs, gallops, or rubs. RESPIRATORY: Clear to auscultation. Breath sounds equal bilaterally. No wheezes , rales, or rhonchi. GASTROINTESTINAL: Abdomen soft, non-tender, nondistended. Normal active bowel sounds MUSCULOSKELETAL: Extremities without clubbing, cyanosis, or edema. NEURO: Alert & Oriented x4 to person, place, time, situation. Moves all ext x4 Laboratory Laboratory Tests Test 07/30/17 12:25 07/30/17 18:55 07/30/17 21:20 07/31/17 04:05 Hemoglobin 8.9 GM/DL 8.8 GM/DL 9.4 GM/DL Hematocrit 25.0 % 26.2 % 27.6 % Troponin I 1.60 NG/ML 2.18 NG/ML Blood Urea Nitrogen 13 MG/DL Creatinine 0.72 MG/DL Random Glucose 91 MG/DL Total Protein 4.6 GM/DL Calcium Level 7.3 MG/DL Phosphorus Level 2.1 MG/DL Magnesium Level 1.9 MG/DL Sodium Level 142 MEQ/L Potassium Level 3.2 MEQ/L Chloride Level 111 MEQ/L Carbon Dioxide Level 25.5 MEQ/L Anion Gap 6 MEQ/L Estimat Glomerular Filtration Rate 108 ML/MIN Protein Corrected Calcium 8.7 MG/DL Imaging Last Impressions Aorta CTA 07/28/17 0329 Signed Impressions: Service Date/Time: Friday, July 28, 2017 03:46 - CONCLUSION: 1. Extensive atherosclerotic plaquing of the aorta and iliac vessels with aneurysmal dilatation of the aorta and bilateral common iliac arteries. 2. No evidence for aortic dissection. 3. Hepatic and renal cyst. 4. Splenomegaly. 5. Emphysema, bilateral pulmonary infiltrates. Adalberto Mason MD Chest X-Ray 07/28/17 0000 Signed Impressions: Service Date/Time: Friday, July 28, 2017 04:05 - CONCLUSION: Emphysema. Mild left upper lobe reticular nodular infiltrate seen. Adalberto Mason MD Assessment and Plan Problem List: (1) Troponin level elevated ICD Codes: R74.8 - Abnormal levels of other serum enzymes Plan: Will plan for a stress test today; complicated as he just had a GI bleed so wouldn't plan for cath unless significant ischemia seen (2) Duodenal ulcer ICD Codes: K26.9 - Duodenal ulcer, unspecified as acute or chronic, without hemorrhage or perforation Plan: Per GI: Two ulcers measuring 15 x 20mm in size were found in the duodenal bulb; Argon plasma coagulation was applied to the sites; with complete hemostasis achieved; biopsies were taken (3) Acute blood loss anemia ICD Codes: D62 - Acute posthemorrhagic anemia Plan: getting blood today, HCT not quite stabilized yet (4) Paroxysmal atrial fibrillation ICD Codes: I48.0 - Paroxysmal atrial fibrillation Plan: back in sr; stopped diltiazed, just had GI bleed and unclear afib burden , will plan for a loop recorder prior to d/c to assist w/ mgt. (5) NSVT (nonsustained ventricular tachycardia) ICD Codes: I47.2 - Ventricular tachycardia Plan: Nuc stress as above, normal lvef by echo; bp marginal so holding off on bb currently. Weston Mejia MD Jul 31, 2017 07:49
[2017-07-31] MEDS: ACETAMINOPHEN/HYDROcodone 325 MG/5 MG TAB PO PRN ×2 (08:00→14:00)
[2017-07-31] MEDS: LEVOFLOXACIN 750 MG PREMIX INJ 150 ML IV SCH (08:05)
[2017-07-31] MEDS: POTASSIUM CHLOR 20 MEQ PREMIX 100 ML IV SCH ×2 (08:11→10:23)
[2017-07-31] MEDS: SODIUM CHLORIDE 0.9% FLUSH 10 ML FLUSH IV FLUSH SCH ×2 (09:00→20:46)
[2017-07-31] MEDS: DOCUSATE SODIUM 50 MG/SENNA 8.6 MG TAB PO SCH ×2 (09:00→20:46)
[2017-07-31] MEDS: MAGNESIUM SULFATE 1 GM PREMIX 100 ML IV SCH ×2 (09:21→10:23)
[2017-07-31] MEDS ORDERED: REGADENOSON INJ 0.4 MG/5 ML SYR ONE (13:14)
--- NOTE | 2017-07-31 14:18 | RADRPT ---
EXAM DATE/TIME: 07/31/2017 13:09 [place] COMPARISON: No previous studies available for comparison. INDICATIONS : Angina. Atrial fibrillation. DOSE: 25.5 mCi Tc99m Myoview at stress. 8.5 mCi Tc99m Myoview at rest. 0.4 mg Lexiscan STRESS SYMPTOMS: Asymptomatic. EJECTION FRACTION: 54% MEDICAL HISTORY : Hypertension. Stroke SURGICAL HISTORY : Inguinal hernia repair. ENCOUNTER: Initial ACUITY: 2 days PAIN SCALE: 3/10 LOCATION: Bilateral chest TECHNIQUE: The patient underwent pharmacologic stress with infusion of prescribed dose. Continuous ECG tracing was monitored during stress. Gated SPECT imaging was performed after stress and conventional SPECT i maging was performed at rest. The examination was performed on a SPECT/CT scanner, both attenuation and non-corrected datasets were reviewed. FINDINGS: DISTRIBUTION: The maximum perfused segment at stress is in the anterior wall. PERFUSION STUDY: There is a small sized moderate severity fixed defect involving the posterior basal segment. GATED STUDY: There is intact wall motion and thickening without hypokinetic or dyskinetic segments. CONCLUSION: Small fixed defect in the posterior basal segment. No findings of ischemia. RISK CATEGORY: Low (<1% Annual Mortality Rate) Nile Grover MD on July 31, 2017 at 14:12 Board Certified Radiologist. This report was verified electronically.
--- NOTE | 2017-07-31 15:49 | EKG ---
Date Performed: 07/30/2017 Time Performed: 20:57:22 PTAGE: 71 years EKG: Atrial fibrillation with rapid ventricular response. Extensive ST-T changes may be due to m yocardial ischemia Low QRS voltages in limb leads When compared to previous tracing, patient is now i n atrial Fibrillation. Abnormal ECG PREVIOUS TRACING : 07/28/2017 16.28 DOCTOR: Simone Batres Interpretating Date/Time 07/31/2017 15:48:44
--- NOTE | 2017-07-31 16:34 | HHI.GIFU ---
Subjective Remarks Pt resting in bed. No GI complaints at this time. Denies nausea, vomiting, abdominal pain. Has not had a BM. (Rachele Love) Objective Vitals I&O Vital Signs Date Time Temp Pulse Resp B/P (MAP) Pulse Ox O2 Delivery O2 Flow Rate FiO2 07/31/17 07:37 95 Nasal Cannula 4.00 07/31/17 07:00 94 Nasal Cannula 4.00 Humidified 07/31/17 06:55 97 98/54 07/31/17 06:26 111 07/31/17 06:11 97 Nasal Cannula 3.00 07/31/17 06:04 103 107/50 07/31/17 06:00 103 07/31/17 04:53 85 81/47 07/31/17 04:10 94 Nasal Cannula 3.00 07/31/17 04:00 82 07/31/17 04:00 98.8 82 20 98/54 (69) 96 07/31/17 02:00 88 07/31/17 01:29 28 07/31/17 00:59 80 109/52 07/31/17 00:30 87 109/72 07/31/17 00:00 98.6 109 26 124/58 (80) 94 07/31/17 00:00 109 07/30/17 23:16 94 Nasal Cannula 3.00 07/30/17 23:15 101 20 121/58 (79) 95 07/30/17 23:00 93 22 114/55 (74) 92 07/30/17 22:45 91 19 116/57 (76) 92 07/30/17 22:15 112 22 118/57 (77) 92 07/30/17 22:00 104 21 123/56 (78) 93 07/30/17 22:00 144 07/30/17 21:42 113 117/55 07/30/17 21:24 113 124/60 07/30/17 20:00 100.5 101 30 151/68 (95) 95 07/30/17 20:00 101 07/30/17 19:00 95 Nasal Cannula 4.00 Humidified 07/30/17 18:27 134/62 (86) 07/30/17 18:00 88 I/O 07/30/17 07/30/17 07/30/17 07/31/17 07/31/1718 07:00 15:00 23:00 07:00 15:00 23:00 Intake Total 1700 ml 1330 ml 3000 ml 550 ml 100 ml Output Total 980 ml 500 ml Balance 1700 ml 350 ml 2500 ml 550 ml 100 ml Intake Oral 0 ml 850 ml 100 ml IV Total 1300 ml 80 ml 2900 ml 550 ml 100 ml Packed Cells 400 ml 400 ml Output Urine Total 980 ml 500 ml # Voids 5 # Bowel Movements 0 0 Laboratory Laboratory Tests Test 07/30/17 18:55 07/30/17 21:20 07/31/17 04:05 Hemoglobin 8.8 9.4 Hematocrit 26.2 27.6 Troponin I 1.60 2.18 Blood Urea Nitrogen 13 Creatinine 0.72 Random Glucose 91 Total Protein 4.6 Calcium Level 7.3 Phosphorus Level 2.1 Magnesium Level 1.9 Sodium Level 142 Potassium Level 3.2 Chloride Level 111 Carbon Dioxide Level 25.5 Anion Gap 6 Estimat Glomerular Filtration Rate 108 Protein Corrected Calcium 8.7 Date/Time Source Procedure Growth Status 07/28/17 12:30 Blood Peripheral Aerobic Blood Culture - Preliminary NO GROWTH IN 3 DAYS Resulted 07/28/17 12:30 Blood Peripheral Anaerobic Blood Culture - Preliminary NO GROWTH IN 3 DAYS Resulted 07/28/17 11:15 Urine Catheterized Urine Urine Culture - Final NO GROWTH IN 48 HOURS. Complete Imaging Last Impressions Myocardial Perfusion Scan Nuc Med 07/31/17 0000 Signed Impressions: Service Date/Time: Monday, July 31, 2017 13:09 - CONCLUSION: Small fixed defect in the posterior basal segment. No findings of ischemia. RISK CATEGORY : Low (<1%% Annual Mortality Rate) Nile Grover MD Aorta CTA 07/28/17 0329 Signed Impressions: Service Date/Time: Friday, July 28, 2017 03:46 - CONCLUSION: 1. Extensive atherosclerotic plaquing of the aorta and iliac vessels with aneurysmal dilatation of the aorta and bilateral common iliac arteries. 2. No evidence for aortic dissection. 3. Hepatic and renal cyst. 4. Splenomegaly. 5. Emphysema, bilateral pulmonary infiltrates. Adalberto Mason MD Chest X-Ray 07/28/17 0000 Signed Impressions: Service Date/Time: Friday, July 28, 2017 04:05 - CONCLUSION: Emphysema. Mild left upper lobe reticular nodular infiltrate seen. Adalberto Mason MD Physical Exam HEENT: Normocephalic; atraumatic; no jaundice CHEST: Even/unlabored CARDIAC: RRR ABDOMEN: Distended, soft, nontender, bowel sounds active EXTREMITIES: No clubbing, cyanosis, or edema. SKIN: Normal; no rash; no jaundice. RN SCHOOL: No focal deficits; alert and oriented times three. (Rachele Love) Assessment and Plan Plan - Profound anemia/ acute GI bleed- black stools for few days. Admits to taking Advil 6 a day X 6 weeks, hgb on admission 4.9 Received 3 units of blood, no recent labs done, last black BM last night, PPI drip started. - Right upper/lower lobe infiltrates likely community-acquired pneumonia- on abx - BRANDIN- likely secondary to GI bleed, high BUN indicative of upper GI bleed - Hyponatremia- per [facility] - High lactic acid- likely due to hemorrhagic shock - Past medical history includes emphysema, Chronic respiratory failure -oxygen dependent, COPD, prior CVA, hypertension and dyslipidemia, per [facility] (07/30) --> S/P EGD --> Esophagus appeared normal. Erythematous gastritis in the gastric antrum. Two ulcers measuring 15 x 20mm in size were found in the duodenal bulb. Argon plasma coagulation was applied to site with complete hemostasis. Biopsy pending. H/ H currently 8.9/ 25. Last unit of PRBCs transfused this AM. Pt remains on Protonix gtt. No obvious continuation of GIB, pt denies BM or emesis. (07/31) S/P EGD day 2. No evidence of continued GIB. Denies emesis, has not had BM. H/H currently 9.4/27.6. 1 U PRBCs transfused yesterday morning. Plan: EGD biopsy pending Continue Protonix Monitor H/H If active GI bleeding IR consult H/H stable and no signs of active GIB at this time, we will sign off, please reconsult as needed Pt to follow up with GI after discharge Pt has been seen and examined by myself and Dr. Ac and this note is written on her behalf (Rachele Love) Rachele Love Jul 31, 2017 16:34 Diana Ac MD Aug 01, 2017 07:05
[2017-08-01] VITALS (8 sets, daily range): BP systolic 128–155; BP diastolic 65–90; PULSE 82–99; RESP 14–19; TEMP 98.2–99; O2SAT 94–96
[2017-08-01] MEDS: RESP: ALBUTEROL 2.5 MG/IPRATROPIUM 0.5 MG NEB (SCH) NEB ×2 (00:07→04:19)
[2017-08-01] MEDS: CHLORHEXIDINE GLUCONATE 2 % 1 PACK (2 CLOTHS) TOP SCH ×2 (01:16→21:09)
[2017-08-01] MEDS: PANTOPRAZOLE SODIUM 40 MG VIAL IV PUSH SCH ×2 (02:00→13:24)
[2017-08-01] MEDS: AZTREONAM INJ 2,000 MG in SODIUM CHLORIDE 0.9% INJ 100 ML IV SCH ×3 (04:29→21:34)
[2017-08-01] MEDS: MORPHINE SULFATE 2 MG/ML INJ IV PUSH PRN ×5 (04:29→21:12)
[2017-08-01 04:58] LABS: HEMATOCRIT 28.1 % (39.0-51.0); HEMOGLOBIN 9.7 GM/DL (13.0-17.0)
[2017-08-01 05:39] LABS: BICARBONATE 26.4 MEQ/L (21.0-32.0); CALCIUM 7.8 MG/DL (8.5-10.1); CREATININE 0.77 MG/DL (0.60-1.30); MAGNESIUM 2.3 MG/DL (1.5-2.5)
[2017-08-01] MEDS: INSULIN NovoLIN REGULAR SUPPLEMENTAL SCALE SQ SCH ×5 (06:00→21:09)
[2017-08-01] MEDS: RESP: BUDESONIDE 0.5 MG/2 ML NEB NEB SCH (08:49)
[2017-08-01] MEDS: RESP: ALBUTEROL 2.5 MG/3 ML NEB (PRN) NEB ×2 (08:49→17:09)
[2017-08-01] MEDS: SODIUM CHLORIDE 0.9% FLUSH 10 ML FLUSH IV FLUSH SCH ×2 (09:00→21:08)
[2017-08-01] MEDS: LEVOFLOXACIN 750 MG PREMIX INJ 150 ML IV SCH (09:00)
[2017-08-01] MEDS: ACETAMINOPHEN/HYDROcodone 325 MG/5 MG TAB PO PRN ×2 (10:05→13:55)
[2017-08-01] MEDS: DOCUSATE SODIUM 50 MG/SENNA 8.6 MG TAB PO SCH ×2 (10:09→21:07)
--- NOTE | 2017-08-01 16:44 | HHI.PR ---
Subjective Remarks Consulted by critical care medicine for transfer of care and medical management. Patient admitted because of GI bleed status post EGD with duodenal ulcers and gastritis. He also developed hemorrhagic shock. Chart reviewed. At this time patient reports of improving cough and shortness of breath. Patient also treated for fluid overload with IV Lasix yesterday. Objective Vitals Vital Signs Date Time Temp Pulse Resp B/P (MAP) Pulse Ox O2 Delivery O2 Flow Rate FiO2 08/01/17 16:00 82 08/01/17 16:00 98.9 82 14 132/67 (88) 96 08/01/17 14:55 17 08/01/17 14:55 17 08/01/17 12:00 99 08/01/17 12:00 98.2 99 17 128/68 (88) 95 08/01/17 08:49 96 Nasal Cannula 4.00 08/01/17 08:00 94 08/01/17 08:00 96 Nasal Cannula 4.00 08/01/17 08:00 99.0 94 17 140/68 (92) 96 08/01/17 04:00 87 08/01/17 04:00 98.8 87 19 135/65 (88) 95 08/01/17 00:07 94 Nasal Cannula 4.00 08/01/17 00:00 85 08/01/17 00:00 98.7 85 15 155/69 (97) 95 07/31/17 20:00 89 07/31/17 20:00 99.1 99 30 148/67 (94) 95 07/31/17 19:28 96 Nasal Cannula 4.00 07/31/17 19:00 94 Nasal Cannula 4.00 Humidified 07/31/17 18:00 95 I/O 07/31/17 07/31/17 07/31/17 08/01/17 08/01/17 08/01/17 07:00 15:00 23:00 07:00 15:00 23:00 Intake Total 3000 ml 550 ml 503 ml 440 ml 250 ml Output Total 500 ml 4150 ml 650 ml Balance 2500 ml 550 ml -3647 ml -210 ml 250 ml Intake Oral 100 ml 240 ml 240 ml IV Total 2900 ml 550 ml 263 ml 200 ml 250 ml Output Urine Total 500 ml 4150 ml 650 ml # Bowel Movements 0 0 0 Result Diagram: 08/01/1743208/01/173 Imaging Last Impressions Myocardial Perfusion Scan Nuc Med 07/31/17 0000 Signed Impressions: Service Date/Time: Monday, July 31, 2017 13:09 - CONCLUSION: Small fixed defect in the posterior basal segment. No findings of ischemia. RISK CATEGORY : Low (<1%% Annual Mortality Rate) Nile Grover MD Aorta CTA 07/28/17 0329 Signed Impressions: Service Date/Time: Friday, July 28, 2017 03:46 - CONCLUSION: 1. Extensive atherosclerotic plaquing of the aorta and iliac vessels with aneurysmal dilatation of the aorta and bilateral common iliac arteries. 2. No evidence for aortic dissection. 3. Hepatic and renal cyst. 4. Splenomegaly. 5. Emphysema, bilateral pulmonary infiltrates. Adalberto Mason MD Chest X-Ray 07/28/17 0000 Signed Impressions: Service Date/Time: Friday, July 28, 2017 04:05 - CONCLUSION: Emphysema. Mild left upper lobe reticular nodular infiltrate seen. Adalberto Mason MD Objective Remarks GENERAL: 71-year-old male SKIN: Warm and dry. We'll perfused CARDIOVASCULAR: Regular rate and rhythm. S1, S2. No S4. Without murmur. No JVD. RESPIRATORY: Decreased breath sounds equal bilaterally. GASTROINTESTINAL: Abdomen soft, non-tender, nondistended. Active bowel sounds are appreciated MUSCULOSKELETAL: Extremities without significant peripheral edema. No obvious deformities. NEUROLOGICAL: Motor grossly within normal limits. Five out of 5 muscle strength in the arms and legs. Conversant, O X 3. Procedures R IJ central line, EGD A/P Problem List: (1) Tobacco abuse ICD Code: Z72.0 - Tobacco use (2) Dyslipidemia ICD Code: E78.5 - Hyperlipidemia, unspecified (3) Lactic acidosis ICD Code: E87.2 - Acidosis (4) History of CVA (cerebrovascular accident) ICD Code: Z86.73 - Personal history of transient ischemic attack (TIA), and cerebral infarction without residual deficits (5) BPH (benign prostatic hyperplasia) ICD Code: N40.0 - Benign prostatic hyperplasia without lower urinary tract symptoms (6) Iliac artery occlusion, left ICD Code: I74.5 - Embolism and thrombosis of iliac artery (7) Pulmonary nodule ICD Code: R91.1 - Solitary pulmonary nodule (8) Liver cyst ICD Code: K76.89 - Other specified diseases of liver (9) Renal cyst ICD Code: N28.1 - Cyst of kidney, acquired (10) Splenomegaly ICD Code: R16.1 - Splenomegaly, not elsewhere classified (11) History of hypertension ICD Code: Z86.79 - Personal history of other diseases of the circulatory system (12) ASVD (arteriosclerotic vascular disease) ICD Code: I70.90 - Unspecified atherosclerosis (13) AAA (abdominal aortic aneurysm) without rupture ICD Code: I71.4 - Abdominal aortic aneurysm, without rupture (14) Respiratory failure ICD Code: J96.90 - Respiratory failure, unspecified, unspecified whether with hypoxia or hypercapnia (15) Hypotension ICD Code: I95.9 - Hypotension, unspecified Status: Acute (16) Pneumonia ICD Code: J18.9 - Pneumonia, unspecified organism Status: Acute (17) GI bleed ICD Code: K92.2 - Gastrointestinal hemorrhage, unspecified Status: Acute (18) Acute blood loss anemia ICD Code: D62 - Acute posthemorrhagic anemia (19) Septic shock ICD Code: A41.9 - Sepsis, unspecified organism; R65.21 - Severe sepsis with septic shock Assessment and Plan Shock likely hemorrhagic and lactic acidosis. Resolved after 5 units of packed RBC, patient has severe anemia secondary to acute blood loss GI bleed secondary to duodenal ulcers. EGD also shows gastritis. No recurrence of bleed avoid NSAIDs. Continue PPI troponin elevation likely secondary to anemia and shock. Stress test negative for ischemia status post cardiology evaluation Paroxysmal A. fib. Cardiology recommending loop recorder. Infrarenal AAA 3.8 x 3.7 cm. No leak. Being monitored by PCP History of hypertension. Holding metoprolol tartrate 50 mg by mouth twice a day and lisinopril 20 mg by mouth daily light of hypotension Community-acquired pneumonia with history of COPD and chronic respiratory failure -oxygen dependent. Continue IV aztreonam and Levaquin Fluid overload with normal LV function. Still with significant peripheral edema will give another dose of 20 mg IV Lasix. History of CVA. Stable. Anticoagulation when cleared by GI DVT - SCD/holding pharmacological prophylaxis in light of GI bleed PT evaluation Discharge Planning Stable for transfer to floor. May need rehab versus home health care Problem Qualifiers (1) BPH (benign prostatic hyperplasia): Qualified Codes: N40.1 - Benign prostatic hyperplasia with lower urinary tract symptoms; R35.0 - Frequency of micturition (2) Respiratory failure: Qualified Codes: J96.21 - Acute and chronic respiratory failure with hypoxia (3) Hypotension: Qualified Codes: I95.9 - Hypotension, unspecified (4) Pneumonia: Qualified Codes: J18.9 - Pneumonia, unspecified organism (5) GI bleed: Qualified Codes: K62.5 - Hemorrhage of anus and rectum Cristiano Lin MD Aug 01, 2017 16:44
[2017-08-01] MEDS ORDERED: FUROSEMIDE 20 MG/2 ML VIAL IV PUSH ONE (17:00)
[2017-08-01] MEDS ORDERED: POTASSIUM CHLORIDE 20 MEQ CONTROLLED RELEASE TAB PO ONE (17:00)
[2017-08-01] MEDS ORDERED: ENALAPRILAT 1.25 MG/ML VIAL IV PUSH PRN (17:00)
--- NOTE | 2017-08-01 17:00 | PD.CARD.PN ---
Subjective Subjective Remarks No further afib/, no complaints Objective Medications Current Medications Medications (Trade) Dose Ordered Sig/Maulik Route Start Time Stop Time Status Last Admin (NS Flush) 2 ml UNSCH PRN IVF 07/28/17 03:00 (NS Flush) 2 ml UNSCH PRN IV FLUSH 07/28/17 06:30 (NS Flush) 2 ml BID IV FLUSH 07/28/17 09:00 08/01/17 09:00 (Tylenol) 650 mg Q6H PRN PO 07/28/17 06:30 (Molino 5-325 Mg) 1 tab Q4H PRN PO 07/28/17 06:30 08/01/17 13:55 (Morphine Inj) 2 mg Q2H PRN IV PUSH 07/28/17 06:30 08/01/17 14:44 (Zofran Inj) 4 mg Q6H PRN IV PUSH 07/28/17 06:30 Miscellaneous Information 1 Q361D XX 07/28/17 06:30 07/28/17 08:45 (Chlorhexidine 2% Cloth) 3 pack Taper DAILY@04 TOP 07/29/17 04:00 07/25/18 03:59 (Chlorhexidine 2% Cloth) 3 pack UNSCH PRN TOP 07/28/17 06:30 (Fallon-Colace) 1 tab BID PO 07/28/17 09:00 08/01/17 10:09 (Milk Of Magnesia Liq) 30 ml Q12H PRN PO 07/28/17 06:30 (Senokot) 17.2 mg Q12H PRN PO 07/28/17 06:30 (Dulcolax Supp) 10 mg DAILY PRN RECTAL 07/28/17 06:30 (Lactulose Liq) 30 ml DAILY PRN PO 07/28/17 06:30 (Albuterol Neb) 2.5 mg Q2HR NEB PRN NEB 07/28/17 06:30 08/01/17 08:49 (D50w (Vial) Inj) 50 ml UNSCH PRN IV PUSH 07/28/17 07:00 (Glucagon Inj) 1 mg UNSCH PRN OTHER 07/28/17 07:00 (NovoLIN R SUPPLEMENTAL SCALE) 1 Q6HR SQ 07/28/17 12:00 07/30/17 18:18 (Pulmicort Respule Neb) 0.5 mg Q12HR NEB NEB 07/28/17 08:00 08/01/17 08:49 Aztreonam 2000 mg/ Sodium Chloride 100 ml @ 200 mls/hr Q8H IV 07/28/17 13:00 08/01/17 13:00 Levofloxacin/ Dextrose 150 ml @ 100 mls/hr Q24H IV 07/28/17 08:00 08/01/17 09:00 Diltiazem HCl 125 mg/Sodium Chloride 125 ml @ 5 mls/hr TITRATE PRN IV 07/30/17 21:30 07/30/17 21:24 Phenylephrine HCl 80 mg/Dextrose 500 ml @ 15 mls/hr TITRATE PRN IV 07/31/17 07:00 (Brethine Inj) 1 mg UNSCH PRN SQ 07/31/17 07:00 (Lasix Inj) 20 mg ONCE ONCE IV PUSH 08/01/17 16:45 08/01/17 16:46 UNV (KCl) 20 meq ONCE ONCE PO 08/01/17 16:45 08/01/17 16:46 UNV (Protonix) 40 mg Q12HR PO 08/01/17 21:00 UNV (Vasotec Inj) 1.25 mg Q6H PRN IV PUSH 08/01/17 16:45 UNV Vital Signs / I&O Vital Signs Date Time Temp Pulse Resp B/P (MAP) Pulse Ox O2 Delivery O2 Flow Rate FiO2 08/01/17 16:00 82 08/01/17 16:00 98.9 82 14 132/67 (88) 96 08/01/17 14:55 17 08/01/17 14:55 17 08/01/17 12:00 99 08/01/17 12:00 98.2 99 17 128/68 (88) 95 08/01/17 08:49 96 Nasal Cannula 4.00 08/01/17 08:00 94 08/01/17 08:00 96 Nasal Cannula 4.00 08/01/17 08:00 99.0 94 17 140/68 (92) 96 08/01/17 04:00 87 08/01/17 04:00 98.8 87 19 135/65 (88) 95 08/01/17 00:07 94 Nasal Cannula 4.00 08/01/17 00:00 85 08/01/17 00:00 98.7 85 15 155/69 (97) 95 07/31/17 20:00 89 07/31/17 20:00 99.1 99 30 148/67 (94) 95 07/31/17 19:28 96 Nasal Cannula 4.00 07/31/17 19:00 94 Nasal Cannula 4.00 Humidified 07/31/17 18:00 95 I/O 07/31/17 07/31/17 07/31/17 08/01/17 08/01/17 08/01/17 07:00 15:00 23:00 07:00 15:00 23:00 Intake Total 3000 ml 550 ml 503 ml 440 ml 250 ml Output Total 500 ml 4150 ml 650 ml Balance 2500 ml 550 ml -3647 ml -210 ml 250 ml Intake Oral 100 ml 240 ml 240 ml IV Total 2900 ml 550 ml 263 ml 200 ml 250 ml Output Urine Total 500 ml 4150 ml 650 ml # Bowel Movements 0 0 0 Physical Exam GENERAL: This is a well-nourished, well-developed patient, in no apparent distress. CARDIOVASCULAR: Regular rate and rhythm without murmurs, gallops, or rubs. RESPIRATORY: Clear to auscultation. Breath sounds equal bilaterally. No wheezes , rales, or rhonchi. GASTROINTESTINAL: Abdomen soft, non-tender, nondistended. Normal active bowel sounds MUSCULOSKELETAL: Extremities without clubbing, cyanosis, or edema. NEURO: Alert & Oriented x4 to person, place, time, situation. Moves all ext x4 Laboratory Laboratory Tests Test 07/31/17 20:16 08/01/17 04:33 Potassium Level 3.5 MEQ/L 3.8 MEQ/L Hemoglobin 9.7 GM/DL Hematocrit 28.1 % Blood Urea Nitrogen 12 MG/DL Creatinine 0.77 MG/DL Random Glucose 95 MG/DL Calcium Level 7.8 MG/DL Magnesium Level 2.3 MG/DL Sodium Level 143 MEQ/L Chloride Level 111 MEQ/L Carbon Dioxide Level 26.4 MEQ/L Anion Gap 6 MEQ/L Estimat Glomerular Filtration Rate 100 ML/MIN Imaging Last Impressions Myocardial Perfusion Scan Nuc Med 07/31/17 0000 Signed Impressions: Service Date/Time: Monday, July 31, 2017 13:09 - CONCLUSION: Small fixed defect in the posterior basal segment. No findings of ischemia. RISK CATEGORY : Low (<1%% Annual Mortality Rate) Nile Grover MD Aorta CTA 07/28/17 0329 Signed Impressions: Service Date/Time: Friday, July 28, 2017 03:46 - CONCLUSION: 1. Extensive atherosclerotic plaquing of the aorta and iliac vessels with aneurysmal dilatation of the aorta and bilateral common iliac arteries. 2. No evidence for aortic dissection. 3. Hepatic and renal cyst. 4. Splenomegaly. 5. Emphysema, bilateral pulmonary infiltrates. Adalberto Mason MD Chest X-Ray 07/28/17 0000 Signed Impressions: Service Date/Time: Friday, July 28, 2017 04:05 - CONCLUSION: Emphysema. Mild left upper lobe reticular nodular infiltrate seen. Adalberto Mason MD Assessment and Plan Problem List: (1) Troponin level elevated ICD Codes: R74.8 - Abnormal levels of other serum enzymes Plan: likely from anemia, no ischemia on nuc stress (2) Duodenal ulcer ICD Codes: K26.9 - Duodenal ulcer, unspecified as acute or chronic, without hemorrhage or perforation Plan: Per GI: Two ulcers measuring 15 x 20mm in size were found in the duodenal bulb; Argon plasma coagulation was applied to the sites; with complete hemostasis achieved; biopsies were taken (3) Acute blood loss anemia ICD Codes: D62 - Acute posthemorrhagic anemia Plan: Gi has now signed off (4) Paroxysmal atrial fibrillation ICD Codes: I48.0 - Paroxysmal atrial fibrillation Plan: back in sr; , just had GI bleed and unclear afib burden, will plan for a loop recorder tomorrow 445pm to assess long-term burden and need for anticoagulation (5) NSVT (nonsustained ventricular tachycardia) ICD Codes: I47.2 - Ventricular tachycardia Plan: Nuc stress w/o ischemia, normal lvef by echo; bp marginal so holding off on bb currently. Weston Mejia MD Aug 01, 2017 17:00
[2017-08-01] MEDS: PANTOPRAZOLE SOD 40 MG DELAYED RELEASE TAB PO SCH (21:07)
[2017-08-02] VITALS (13 sets, daily range): BP systolic 114–134; BP diastolic 68–70; PULSE 70–110; RESP 16–20; TEMP 98.1–99.3; O2SAT 93–98
[2017-08-02] MEDS: MORPHINE SULFATE 2 MG/ML INJ IV PUSH PRN ×6 (00:46→23:41)
[2017-08-02] MEDS: RESP: ALBUTEROL 2.5 MG/3 ML NEB (PRN) NEB (01:18)
[2017-08-02] MEDS: RESP: BUDESONIDE 0.5 MG/2 ML NEB NEB SCH ×3 (01:18→21:05)
[2017-08-02] MEDS: INSULIN NovoLIN REGULAR SUPPLEMENTAL SCALE SQ SCH ×4 (05:06→23:43)
[2017-08-02] MEDS: AZTREONAM INJ 2,000 MG in SODIUM CHLORIDE 0.9% INJ 100 ML IV SCH ×2 (05:06→13:23)
--- NOTE | 2017-08-02 07:32 | MB ---
cc: MACARIO MORGAN DATE OF CONSULTATION 08/01/[address] Lin REASON FOR CONSULTATION Shortness of breath. HISTORY OF PRESENT ILLNESS Mr. Navarrete is a pleasant 71-year-old male who is known to me from the office with a history of COPD, uses oxygen off and on. The patient states that before going to the gym every other day, he was taking three Advil. He did notice some abdominal discomfort and dark tarry stool, but did not pay attention. On the day of the admission, he was sitting on the chair and he collapsed, called his and was brought to the hospital. She was found to have a hemoglobin of 4.8. He received 5 units of blood transfusion. He had an EGD done which shows two large duodenal ulcers and now he is feeling much better. He has no abdominal pain. PAST MEDICAL HISTORY His past medical history is significant for a history of: 1. Hypertension 2. COPD 3. Hernia surgery MEDICATIONS He is currently takin. Protonix 40 mg a day 2. Brethine p.r.n. 3. Aztreonam 2 grams q.8 h. 4. He is on insulin coverage. 5. Pulmicort nebulizer treatment twice a day. 6. Levaquin 750 mg a day ALLERGIES Allergy to KEFLEX. SOCIAL HISTORY He has a history of smoking cigars. No alcohol use. 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 FAMILY HISTORY He is . He has two children. REVIEW OF SYSTEMS Normally he is up around and active. Goes to the gym. No seizure, stroke or epilepsy. No DVT or pulmonary embolism. No prior seizures. PHYSICAL EXAM This is an elderly male mildly short of breath not in acute distress. VITAL SIGNS: Blood pressure 132/67, heart rate 82, respirations 16, temperature 98.9. HEAD, EYES, EARS, NOSE, AND THROAT: Pupils are equal, round and reactive to light. Oral mucosa, nasal mucosa normal. NECK: Supple. JVP not raised. CHEST: Equal bilaterally. He has no rhonchi. CARDIOVASCULAR: S1 and S2 are normal. ABDOMEN: Soft, nontender, nondistended. Bowel sounds are EXTREMITIES: No edema. BUDGET ANALYST: He is alert and oriented times three. No focal deficits. LABORATORY DATA His lab evaluation, his hemoglobin is 9.7, hematocrit 28.1. Sodium 142, potassium 3.8, chloride 111, CO2 26, BUN 12, creatinine is 0.77. IMPRESSION 1. COPD 2. GI bleed 3. Gastric ulcer 4. Hypertension 5. History of nicotine use. PLAN I discussed with the patient, we will have aerosol treatment to supplement his oxygen. We will also monitor his H&H. Continue present antibiotic. Further treatment will depend upon the course in the hospital. Thank you, Dr. Lin for this consult. MD KAITLYN Mireles/TEDDY /8:47 PM /7:10 AM
[2017-08-02] MEDS: LEVOFLOXACIN 750 MG PREMIX INJ 150 ML IV SCH (08:20)
[2017-08-02] MEDS: DOCUSATE SODIUM 50 MG/SENNA 8.6 MG TAB PO SCH ×2 (08:21→20:41)
[2017-08-02] MEDS: PANTOPRAZOLE SOD 40 MG DELAYED RELEASE TAB PO SCH ×2 (08:21→20:41)
[2017-08-02] MEDS: SODIUM CHLORIDE 0.9% FLUSH 10 ML FLUSH IV FLUSH SCH ×2 (08:21→20:41)
[2017-08-02 09:03] LABS: CHOLESTEROL/ HDL RATIO 3.57 RATIO; HDL CHOLESTEROL 30.8 MG/DL (40.0-60.0)
[2017-08-02] MEDS ORDERED: BUDE.5I NEB (14:27)
[2017-08-02] MEDS ORDERED: HYDR-3516 PO (14:27)
[2017-08-02] MEDS ORDERED: LEVA750T9 PO (14:27)
[2017-08-02] MEDS ORDERED: PANT40TA3 PO (14:27)
--- NOTE | 2017-08-02 14:27 | HHI.DCPOC ---
Discharge Care Plan Diagnosis: (1) Duodenal ulcer (2) Acute blood loss anemia Your Health Problems Are: Difficulty with ADL Exercise Tolerance Goals to Promote Your Health * To prevent worsening of your condition and complications * To maintain your health at the optimal level Directions to Meet Your Goals Take your medications as prescribed Follow your dietary instruction Follow activity as directed Keep your appointments as scheduled Take your immunizations and boosters as scheduled If your symptoms worsen call your PCP, if no PCP go to Urgent Care Center or Emergency Room Smoking is Dangerous to Your Health. Avoid second hand smoke Call the 24-hour hour crisis hotline for domestic abuse at Cristiano Lin MD Aug 02, 2017 14:27
--- NOTE | 2017-08-02 14:33 | HHI.PR ---
Subjective Remarks Follow-up GI bleed. No further bleeding. He is out of bed complains of weakness discussed nursing Objective Vitals Vital Signs Date Time Temp Pulse Resp B/P (MAP) Pulse Ox O2 Delivery O2 Flow Rate FiO2 08/02/17 11:50 98.5 106 18 114/70 (85) 08/02/17 08:23 Nasal Cannula 3.00 08/02/17 08:00 110 08/02/17 07:30 99.3 90 16 130/70 (90) 98 08/02/17 06:44 98.1 94 16 126/68 (87) 97 08/02/17 04:00 94 08/02/17 01:18 93 Nasal Cannula 3.00 08/02/17 00:41 98.2 101 16 134/70 (91) 95 08/02/17 00:00 86 08/01/17 21:00 Nasal Cannula 4.00 08/01/17 20:15 98.9 98 17 151/90 (110) 95 08/01/17 17:05 18 08/01/17 16:00 82 08/01/17 16:00 98.9 82 14 132/67 (88) 96 08/01/17 14:55 17 I/O 08/01/17 08/01/17 08/01/17 08/02/17 08/02/17 08/02/17 07:00 15:00 23:00 07:00 15:00 23:00 Intake Total 440 ml 250 ml 640 ml 480 ml Output Total 650 ml 1350 ml 1000 ml Balance -210 ml 250 ml -710 ml -520 ml Intake Oral 240 ml 640 ml 480 ml IV Total 200 ml 250 ml Output Urine Total 650 ml 1350 ml 1000 ml # Bowel Movements 0 0 2 Result Diagram: 08/01/1743208/01/17 0433 Objective Remarks GENERAL: 71-year-old male SKIN: Warm and dry. We'll perfused CARDIOVASCULAR: Regular rate and rhythm. S1, S2. No S4. Without murmur. No JVD. RESPIRATORY: Decreased breath sounds equal bilaterally. GASTROINTESTINAL: Abdomen soft, non-tender, nondistended. Active bowel sounds are appreciated MUSCULOSKELETAL: Extremities without significant peripheral edema. No obvious deformities. NEUROLOGICAL: Motor grossly within normal limits. Five out of 5 muscle strength in the arms and legs. Conversant, O X 3. Procedures R IJ central line, EGD A/P Problem List: (1) Tobacco abuse ICD Code: Z72.0 - Tobacco use (2) Dyslipidemia ICD Code: E78.5 - Hyperlipidemia, unspecified (3) Lactic acidosis ICD Code: E87.2 - Acidosis (4) History of CVA (cerebrovascular accident) ICD Code: Z86.73 - Personal history of transient ischemic attack (TIA), and cerebral infarction without residual deficits (5) BPH (benign prostatic hyperplasia) ICD Code: N40.0 - Benign prostatic hyperplasia without lower urinary tract symptoms (6) Iliac artery occlusion, left ICD Code: I74.5 - Embolism and thrombosis of iliac artery (7) Pulmonary nodule ICD Code: R91.1 - Solitary pulmonary nodule (8) Liver cyst ICD Code: K76.89 - Other specified diseases of liver (9) Renal cyst ICD Code: N28.1 - Cyst of kidney, acquired (10) Splenomegaly ICD Code: R16.1 - Splenomegaly, not elsewhere classified (11) History of hypertension ICD Code: Z86.79 - Personal history of other diseases of the circulatory system (12) ASVD (arteriosclerotic vascular disease) ICD Code: I70.90 - Unspecified atherosclerosis (13) AAA (abdominal aortic aneurysm) without rupture ICD Code: I71.4 - Abdominal aortic aneurysm, without rupture (14) Respiratory failure ICD Code: J96.90 - Respiratory failure, unspecified, unspecified whether with hypoxia or hypercapnia (15) Hypotension ICD Code: I95.9 - Hypotension, unspecified Status: Acute (16) Pneumonia ICD Code: J18.9 - Pneumonia, unspecified organism Status: Acute (17) GI bleed ICD Code: K92.2 - Gastrointestinal hemorrhage, unspecified Status: Acute (18) Acute blood loss anemia ICD Code: D62 - Acute posthemorrhagic anemia (19) Septic shock ICD Code: A41.9 - Sepsis, unspecified organism; R65.21 - Severe sepsis with septic shock Assessment and Plan Shock likely hemorrhagic and lactic acidosis. Resolved after 5 units of packed RBC, patient has severe anemia secondary to acute blood loss. Repeat CBC pending GI bleed secondary to duodenal ulcers. EGD also shows gastritis. No recurrence of bleed avoid NSAIDs. Continue PPI troponin elevation likely secondary to anemia and shock. Stress test negative for ischemia status post cardiology evaluation Paroxysmal A. fib. Cardiology recommending loop recorder to be placed today. Infrarenal AAA 3.8 x 3.7 cm. No leak. Being monitored by PCP History of hypertension. Holding metoprolol tartrate 50 mg by mouth twice a day and lisinopril 20 mg by mouth daily light of hypotension. May need to restart Lopressor Community-acquired pneumonia with history of COPD and chronic respiratory failure -oxygen dependent. Stable discontinue IV aztreonam and Levaquin switch to by mouth Levaquin Fluid overload with normal LV function. Improving follow-up pending BMP History of CVA. Stable. Anticoagulation when cleared by GI DVT - SCD/holding pharmacological prophylaxis in light of GI bleed PT evaluation Discharge Planning Will need rehabilitation possible discharge in the morning Problem Qualifiers (1) BPH (benign prostatic hyperplasia): Qualified Codes: N40.1 - Benign prostatic hyperplasia with lower urinary tract symptoms; R35.0 - Frequency of micturition (2) Respiratory failure: Qualified Codes: J96.21 - Acute and chronic respiratory failure with hypoxia (3) Hypotension: Qualified Codes: I95.9 - Hypotension, unspecified (4) Pneumonia: Qualified Codes: J18.9 - Pneumonia, unspecified organism (5) GI bleed: Qualified Codes: K62.5 - Hemorrhage of anus and rectum Cristiano Lin MD Aug 02, 2017 14:33
[2017-08-02] MEDS ORDERED: NS 1000 ML IV SCH (15:45)
[2017-08-02] MEDS ORDERED: CHLORHEXIDINE GLUCONATE 2 % 1 PACK (2 CLOTHS) TOPICAL SCH (15:45)
[2017-08-02] MEDS ORDERED: VANCOMYCIN 1000 MG/NS 250 ML IV SCH ×2 (15:45)
[2017-08-02] MEDS ORDERED: POVIDONE IODINE 5% (ANTISEPSIS KIT) 4 APPLICATIONS EACH NARE SCH (15:45)
[2017-08-02] MEDS ORDERED: MUPIROCIN 2% OINT 1 APPLIC/GM SYR NASAL SCH (15:45)
--- NOTE | 2017-08-02 15:59 | PD.CARD.PN ---
Subjective Subjective Remarks no complaints Objective Medications Current Medications Medications (Trade) Dose Ordered Sig/Maulik Route Start Time Stop Time Status Last Admin (NS Flush) 2 ml UNSCH PRN IVF 07/28/17 03:00 (NS Flush) 2 ml UNSCH PRN IV FLUSH 07/28/17 06:30 (NS Flush) 2 ml BID IV FLUSH 07/28/17 09:00 08/02/17 08:21 (Tylenol) 650 mg Q6H PRN PO 07/28/17 06:30 (Nebo 5-325 Mg) 1 tab Q4H PRN PO 07/28/17 06:30 08/01/17 13:55 (Morphine Inj) 2 mg Q2H PRN IV PUSH 07/28/17 06:30 08/02/17 13:43 (Zofran Inj) 4 mg Q6H PRN IV PUSH 07/28/17 06:30 Miscellaneous Information 1 Q361D XX 07/28/17 06:30 07/28/17 08:45 (Chlorhexidine 2% Cloth) 3 pack Taper DAILY@04 TOP 07/29/17 04:00 07/25/18 03:59 (Chlorhexidine 2% Cloth) 3 pack UNSCH PRN TOP 07/28/17 06:30 (Fallon-Colace) 1 tab BID PO 07/28/17 09:00 08/02/17 08:21 (Milk Of Magnesia Liq) 30 ml Q12H PRN PO 07/28/17 06:30 (Senokot) 17.2 mg Q12H PRN PO 07/28/17 06:30 (Dulcolax Supp) 10 mg DAILY PRN RECTAL 07/28/17 06:30 (Lactulose Liq) 30 ml DAILY PRN PO 07/28/17 06:30 (Albuterol Neb) 2.5 mg Q2HR NEB PRN NEB 07/28/17 06:30 08/02/17 01:18 (D50w (Vial) Inj) 50 ml UNSCH PRN IV PUSH 07/28/17 07:00 (Glucagon Inj) 1 mg UNSCH PRN OTHER 07/28/17 07:00 (NovoLIN R SUPPLEMENTAL SCALE) 1 Q6HR SQ 07/28/17 12:00 07/30/17 18:18 (Pulmicort Respule Neb) 0.5 mg Q12HR NEB NEB 07/28/17 08:00 08/02/17 08:22 (Brethine Inj) 1 mg UNSCH PRN SQ 07/31/17 07:00 (Protonix) 40 mg Q12HR PO 08/01/17 21:00 08/02/17 08:21 (Vasotec Inj) 1.25 mg Q6H PRN IV PUSH 08/01/17 17:00 (Levaquin) 750 mg DAILY PO 08/03/17 09:00 08/06/17 08:59 Sodium Chloride 1,000 ml @ 30 mls/hr Q24H IV 08/02/17 15:45 Vancomycin HCl 1000 mg/Sodium Chloride 250 ml @ 250 mls/hr TURF FARMER IV 08/02/17 15:45 08/05/17 15:44 (Betadine 5% Antisepsis Kit) 2 applic TURF FARMER EACH NARE 08/02/17 15:45 08/05/17 15:44 (Bactroban Nasal 2% Oint) 1 applic TURF FARMER NASAL 08/02/17 15:45 08/05/17 15:44 (Chlorhexidine 2% Cloth) 3 pack TURF FARMER TOPICAL 08/02/17 15:45 08/05/17 15:44 Vital Signs / I&O Vital Signs Date Time Temp Pulse Resp B/P (MAP) Pulse Ox O2 Delivery O2 Flow Rate FiO2 08/02/17 11:50 98.5 106 18 114/70 (85) 08/02/17 08:23 Nasal Cannula 3.00 08/02/17 08:00 110 08/02/17 07:30 99.3 90 16 130/70 (90) 98 08/02/17 06:44 98.1 94 16 126/68 (87) 97 08/02/17 04:00 94 08/02/17 01:18 93 Nasal Cannula 3.00 08/02/17 00:41 98.2 101 16 134/70 (91) 95 08/02/17 00:00 86 08/01/17 21:00 Nasal Cannula 4.00 08/01/17 20:15 98.9 98 17 151/90 (110) 95 08/01/17 17:05 18 08/01/17 16:00 82 08/01/17 16:00 98.9 82 14 132/67 (88) 96 I/O 08/01/17 08/01/17 08/01/17 08/02/17 08/02/17 08/02/17 07:00 15:00 23:00 07:00 15:00 23:00 Intake Total 440 ml 250 ml 640 ml 480 ml Output Total 650 ml 1350 ml 1000 ml Balance -210 ml 250 ml -710 ml -520 ml Intake Oral 240 ml 640 ml 480 ml IV Total 200 ml 250 ml Output Urine Total 650 ml 1350 ml 1000 ml # Bowel Movements 0 0 2 Physical Exam GENERAL: This is a well-nourished, well-developed patient, in no apparent distress. CARDIOVASCULAR: Regular rate and rhythm without murmurs, gallops, or rubs. RESPIRATORY: Clear to auscultation. Breath sounds equal bilaterally. No wheezes , rales, or rhonchi. GASTROINTESTINAL: Abdomen soft, non-tender, nondistended. Normal active bowel sounds MUSCULOSKELETAL: Extremities without clubbing, cyanosis, or edema. NEURO: Alert & Oriented x4 to person, place, time, situation. Moves all ext x4 Laboratory Laboratory Tests Test 08/02/17 07:34 Triglycerides Level 61 MG/DL Cholesterol Level 110 MG/DL LDL Cholesterol 67 MG/DL HDL Cholesterol 30.8 MG/DL Cholesterol/HDL Ratio 3.57 RATIO Imaging Last Impressions Myocardial Perfusion Scan Nuc Med 07/31/17 0000 Signed Impressions: Service Date/Time: Monday, July 31, 2017 13:09 - CONCLUSION: Small fixed defect in the posterior basal segment. No findings of ischemia. RISK CATEGORY : Low (<1%% Annual Mortality Rate) Nile Grover MD Aorta CTA 07/28/17 0329 Signed Impressions: Service Date/Time: Friday, July 28, 2017 03:46 - CONCLUSION: 1. Extensive atherosclerotic plaquing of the aorta and iliac vessels with aneurysmal dilatation of the aorta and bilateral common iliac arteries. 2. No evidence for aortic dissection. 3. Hepatic and renal cyst. 4. Splenomegaly. 5. Emphysema, bilateral pulmonary infiltrates. Adalberto Mason MD Chest X-Ray 07/28/17 0000 Signed Impressions: Service Date/Time: Friday, July 28, 2017 04:05 - CONCLUSION: Emphysema. Mild left upper lobe reticular nodular infiltrate seen. Adalberto Mason MD Assessment and Plan Problem List: (1) Troponin level elevated ICD Codes: R74.8 - Abnormal levels of other serum enzymes Plan: likely from anemia, no ischemia on nuc stress (2) Duodenal ulcer ICD Codes: K26.9 - Duodenal ulcer, unspecified as acute or chronic, without hemorrhage or perforation Plan: Per GI: Two ulcers measuring 15 x 20mm in size were found in the duodenal bulb; Argon plasma coagulation was applied to the sites; with complete hemostasis achieved; biopsies were taken (3) Acute blood loss anemia ICD Codes: D62 - Acute posthemorrhagic anemia Plan: Gi has now signed off (4) Paroxysmal atrial fibrillation ICD Codes: I48.0 - Paroxysmal atrial fibrillation Plan: back in sr; , just had GI bleed and unclear afib burden, will place loop recorder this afternoon (5) NSVT (nonsustained ventricular tachycardia) ICD Codes: I47.2 - Ventricular tachycardia Plan: Nuc stress w/o ischemia, normal lvef by echo; bp marginal so holding off on bb currently. Assessment and Plan Ok to d/c home from cardiac standpoint once loop recorder in; will sign off and see him back in my office in 1-2 weeks. Weston Mejia MD Aug 02, 2017 15:59
--- NOTE | 2017-08-02 20:13 | HHI.PR ---
Subjective Remarks 72 YOWM with COPD, GIB, duodenal ulcers Breathing better Feels stronger Denies sob at BS Objective Vital Signs Vital Signs Date Time Temp Pulse Resp B/P (MAP) Pulse Ox O2 Delivery O2 Flow Rate FiO2 08/02/17 17:00 Nasal Cannula 2.00 08/02/17 17:00 98.5 98 18 130/68 (88) 95 08/02/17 12:00 103 08/02/17 12:00 Nasal Cannula 2.00 08/02/17 11:50 98.5 106 18 114/70 (85) 08/02/17 08:23 Nasal Cannula 3.00 08/02/17 08:00 Nasal Cannula 2.00 08/02/17 08:00 110 08/02/17 07:30 99.3 90 16 130/70 (90) 98 08/02/17 06:44 98.1 94 16 126/68 (87) 97 08/02/17 04:00 94 08/02/17 01:18 93 Nasal Cannula 3.00 08/02/17 00:41 98.2 101 16 134/70 (91) 95 08/02/17 00:00 86 08/01/17 21:00 Nasal Cannula 4.00 08/01/17 20:15 98.9 98 17 151/90 (110) 95 I/O 08/01/17 08/01/17 08/01/17 08/02/17 08/02/17 08/02/17 07:00 15:00 23:00 07:00 15:00 23:00 Intake Total 440 ml 250 ml 640 ml 480 ml 520 ml Output Total 650 ml 1350 ml 1000 ml 450 ml Balance -210 ml 250 ml -710 ml -520 ml 70 ml Intake Oral 240 ml 640 ml 480 ml 520 ml IV Total 200 ml 250 ml Output Urine Total 650 ml 1350 ml 1000 ml 450 ml # Bowel Movements 0 0 2 Result Diagram: 08/01/1743208/01/17432 Objective Remarks GENERAL: WBWN WM, NAD SKIN: Warm and dry. HEAD: Normocephalic. EYES: No scleral icterus. No injection or drainage. NECK: Supple, trachea midline. No JVD or lymphadenopathy. CARDIOVASCULAR: Regular rate and rhythm without murmurs, gallops, or rubs. RESPIRATORY: Breath sounds equal bilaterally. No accessory muscle use. GASTROINTESTINAL: Abdomen soft, non-tender, nondistended. MUSCULOSKELETAL: No cyanosis, or edema. BACK: Nontender without obvious deformity. No CVA tenderness. A/P Assessment and Plan COPD GIB Anemia HTN PLAN: DW pt and He is anxious to go home Monitor H/H Supplement 02 Aerosol Rony Gore MD Aug 02, 2017 20:13
[2017-08-02 21:18] LABS: AUTOMATED NEUTROPHIL # 4.3 TH/MM3 (1.8-7.7); BASOPHIL % 0.4 % (0.0-2.0); EOSINOPHIL # 0.2 TH/MM3 (0-0.4); EOSINOPHIL % 2.6 % (0.0-4.0); HEMATOCRIT 30.1 % (39.0-51.0); HEMOGLOBIN 10.2 GM/DL (13.0-17.0); LYMPH % 13.2 % (9.0-44.0); LYMPHOCYTE # 0.8 TH/MM3 (1.0-4.8); MEAN CELL VOLUME 90.5 FL (80.0-100.0); MEAN CORPUSCULAR HEMOGLOBIN 30.8 PG (27.0-34.0); MEAN PLATELET VOLUME 7.3 FL (7.0-11.0); MONO % 12.8 % (0.0-8.0); MONOCYTE # 0.8 TH/MM3 (0-0.9); PLATELET COUNT 236 TH/MM3 (150-450); RED BLOOD COUNT 3.33 MIL/MM3 (4.50-5.90); RED CELL DISTRIBUTION WIDTH 14.6 % (11.6-17.2); WHITE BLOOD COUNT 6.1 TH/MM3 (4.0-11.0)
[2017-08-02 21:29] LABS: BICARBONATE 29.6 MEQ/L (21.0-32.0); CREATININE 1.01 MG/DL (0.60-1.30); MAGNESIUM 2.1 MG/DL (1.5-2.5)
[2017-08-03] VITALS (7 sets, daily range): BP systolic 98–147; BP diastolic 61–92; PULSE 62–119; RESP 16–20; TEMP 98.2–99.6; O2SAT 94–98
[2017-08-03] MEDS: MORPHINE SULFATE 2 MG/ML INJ IV PUSH PRN ×2 (03:38→05:55)
[2017-08-03] MEDS: CHLORHEXIDINE GLUCONATE 2 % 1 PACK (2 CLOTHS) TOP SCH (03:48)
[2017-08-03] MEDS: INSULIN NovoLIN REGULAR SUPPLEMENTAL SCALE SQ SCH ×2 (05:54→11:38)
--- NOTE | 2017-08-03 07:50 | HHI.FF ---
Face to Face Verification Diagnosis: (1) Duodenal ulcer (2) Acute blood loss anemia Physical Therapy Order: Evaluate and Treat, Improve ambulation, Strength and gait training Home Health Nursing Order: Medical education Signs/symptoms of disease process CHF education Oxygen administration education Medication education-adverse effect Wound care and dressing changes Nursing assessment with vital signs I have seen patient Neymar Navarrete on 08/03/17. My clinical findings support the need for the requested home health care services because: Patient has SOB Deconditioned w/ increased weakness I certify that my clinical findings support that this patient is homebound because: Unsafe to leave home unassisted Poor cardiac reserve Cristiano Lin MD Aug 03, 2017 07:50
[2017-08-03] MEDS ORDERED: WALKER WHEELS/F1 MIS ×2 (07:51→14:08)
[2017-08-03] MEDS: DOCUSATE SODIUM 50 MG/SENNA 8.6 MG TAB PO SCH (07:57)
[2017-08-03] MEDS: PANTOPRAZOLE SOD 40 MG DELAYED RELEASE TAB PO SCH (07:57)
--- NOTE | 2017-08-03 08:00 | MA ---
cc: WESTON MEJIA MD DATE 08/02/2017 PROCEDURE PERFORMED Loop recorder REFERRING PHYSICIAN Dr. Weston Mejia INDICATION Atrial fibrillation detection. DESCRIPTION OF THE PROCEDURE The patient was brought to the DOC unit in the postabsorptive state. After informed consent was obtained, a [employer] LINQ loop recorder was inserted subcutaneously to the left chest. The patient tolerated the procedure well without any apparent complications. Tachybrady pause and atrial fibrillation detection was enabled. The initial R-wave was 0.32 mV. The serial number was [id number]. MD ART Ramírez/TEDDY /4:05 PM /7:39 AM
[2017-08-03] MEDS: SODIUM CHLORIDE 0.9% FLUSH 10 ML FLUSH IV FLUSH SCH (08:02)
[2017-08-03] MEDS: RESP: BUDESONIDE 0.5 MG/2 ML NEB NEB SCH (08:12)
[2017-08-03] MEDS ORDERED: LEVOFLOXACIN 750 MG TAB PO SCH (09:00)
[2017-08-03] MEDS ORDERED: DILTIAZEM INJ 125 MG in SODIUM CHLORIDE 0.9% INJ 100 ML IV PRN (09:45)
[2017-08-03] MEDS ORDERED: METOPROLOL TARTRATE 50 MG TAB PO SCH (09:45)
--- NOTE | 2017-08-03 09:59 | HHI.PR ---
Subjective Remarks Follow-up with Selvin sylvester RVR today with slight dizziness. Discussed with nursing , restart Lopressor 50 mg by mouth 1. Cardizem drip as needed Objective Vitals Vital Signs Date Time Temp Pulse Resp B/P (MAP) Pulse Ox O2 Delivery O2 Flow Rate FiO2 08/03/17 08:14 Nasal Cannula 2.00 08/03/17 08:02 Nasal Cannula 2.00 08/03/17 07:30 99.6 107 16 147/92 (110) 98 08/03/17 04:05 80 08/03/17 04:00 98.9 62 20 134/68 (90) 97 08/03/17 04:00 Nasal Cannula 2.00 08/03/17 01:38 19 08/03/17 00:00 98.6 119 20 132/61 (84) 94 08/03/17 00:00 Nasal Cannula 2.00 08/02/17 23:53 79 08/02/17 21:15 Nasal Cannula 2.00 08/02/17 21:07 Nasal Cannula 3.00 08/02/17 21:00 98.5 70 20 119/70 (86) 93 08/02/17 20:00 97 08/02/17 17:00 Nasal Cannula 2.00 08/02/17 17:00 98.5 98 18 130/68 (88) 95 08/02/17 12:00 103 08/02/17 12:00 Nasal Cannula 2.00 08/02/17 11:50 98.5 106 18 114/70 (85) I/O 08/02/17 08/02/17 08/02/17 08/03/17 08/03/17 08/03/17 07:00 15:00 23:00 07:00 15:00 23:00 Intake Total 480 ml 520 ml 600 ml Output Total 1000 ml 450 ml 1250 ml Balance -520 ml 70 ml -650 ml Intake Oral 480 ml 520 ml 600 ml Output Urine Total 1000 ml 450 ml 1250 ml # Bowel Movements 2 Result Diagram: 08/02/17200108/02/172001 Objective Remarks GENERAL: 71-year-old male SKIN: Warm and dry. We'll perfused CARDIOVASCULAR: Irregularly irregular tachycardic. S1, S2. No S4. Without murmur. No JVD. RESPIRATORY: Decreased breath sounds equal bilaterally. GASTROINTESTINAL: Abdomen soft, non-tender, nondistended. Active bowel sounds are appreciated MUSCULOSKELETAL: Extremities without significant peripheral edema. No obvious deformities. NEUROLOGICAL: Motor grossly within normal limits. Five out of 5 muscle strength in the arms and legs. Conversant, O X 3. Procedures R IJ central line, EGD and loop recorder A/P Problem List: (1) Tobacco abuse ICD Code: Z72.0 - Tobacco use (2) Dyslipidemia ICD Code: E78.5 - Hyperlipidemia, unspecified (3) Lactic acidosis ICD Code: E87.2 - Acidosis (4) History of CVA (cerebrovascular accident) ICD Code: Z86.73 - Personal history of transient ischemic attack (TIA), and cerebral infarction without residual deficits (5) BPH (benign prostatic hyperplasia) ICD Code: N40.0 - Benign prostatic hyperplasia without lower urinary tract symptoms (6) Iliac artery occlusion, left ICD Code: I74.5 - Embolism and thrombosis of iliac artery (7) Pulmonary nodule ICD Code: R91.1 - Solitary pulmonary nodule (8) Liver cyst ICD Code: K76.89 - Other specified diseases of liver (9) Renal cyst ICD Code: N28.1 - Cyst of kidney, acquired (10) Splenomegaly ICD Code: R16.1 - Splenomegaly, not elsewhere classified (11) History of hypertension ICD Code: Z86.79 - Personal history of other diseases of the circulatory system (12) ASVD (arteriosclerotic vascular disease) ICD Code: I70.90 - Unspecified atherosclerosis (13) AAA (abdominal aortic aneurysm) without rupture ICD Code: I71.4 - Abdominal aortic aneurysm, without rupture (14) Respiratory failure ICD Code: J96.90 - Respiratory failure, unspecified, unspecified whether with hypoxia or hypercapnia (15) Hypotension ICD Code: I95.9 - Hypotension, unspecified Status: Acute (16) Pneumonia ICD Code: J18.9 - Pneumonia, unspecified organism Status: Acute (17) GI bleed ICD Code: K92.2 - Gastrointestinal hemorrhage, unspecified Status: Acute (18) Acute blood loss anemia ICD Code: D62 - Acute posthemorrhagic anemia (19) Septic shock ICD Code: A41.9 - Sepsis, unspecified organism; R65.21 - Severe sepsis with septic shock Assessment and Plan Shock likely hemorrhagic and lactic acidosis. Resolved after 5 units of packed RBC, patient has severe anemia secondary to acute blood loss. Stable blood counts GI bleed secondary to duodenal ulcers. EGD also shows gastritis. No recurrence of bleed avoid NSAIDs. Continue PPI troponin elevation likely secondary to anemia and shock. Stress test negative for ischemia status post cardiology evaluation Paroxysmal A. fib. RVR restart Lopressor. Cardizem as needed. 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 No leak. Being monitored by PCP History of hypertension. Holding lisinopril 20 mg by mouth daily in light of hypotension. Community-acquired pneumonia with history of COPD and chronic respiratory failure -oxygen dependent. Stable discontinue IV aztreonam and Levaquin switched to by mouth Levaquin Fluid overload with normal LV function. Improving towards post Lasix History of CVA. Stable. Anticoagulation when cleared by GI DVT - SCD/holding pharmacological prophylaxis in light of GI bleed PT recommends [facility] PT Discharge Planning Will need rehabilitation possible discharge in the morning Problem Qualifiers (1) BPH (benign prostatic hyperplasia): Qualified Codes: N40.1 - Benign prostatic hyperplasia with lower urinary tract symptoms; R35.0 - Frequency of micturition (2) Respiratory failure: Qualified Codes: J96.21 - Acute and chronic respiratory failure with hypoxia (3) Hypotension: Qualified Codes: I95.9 - Hypotension, unspecified (4) Pneumonia: Qualified Codes: J18.9 - Pneumonia, unspecified organism (5) GI bleed: Qualified Codes: K62.5 - Hemorrhage of anus and rectum Cristiano Lin MD Aug 03, 2017 09:59
[2017-08-03 11:47] LABS: AUTOMATED NEUTROPHIL # 4.6 TH/MM3 (1.8-7.7); BASOPHIL % 0.3 % (0.0-2.0); EOSINOPHIL # 0.1 TH/MM3 (0-0.4); EOSINOPHIL % 2.1 % (0.0-4.0); HEMATOCRIT 31.7 % (39.0-51.0); HEMOGLOBIN 10.5 GM/DL (13.0-17.0); LYMPH % 8.3 % (9.0-44.0); LYMPHOCYTE # 0.5 TH/MM3 (1.0-4.8); MEAN CELL VOLUME 91.3 FL (80.0-100.0); MEAN CORPUSCULAR HEMOGLOBIN 30.3 PG (27.0-34.0); MEAN CORPUSCULAR HGB CONC 33.2 % (32.0-36.0); MONO % 11.7 % (0.0-8.0); MONOCYTE # 0.7 TH/MM3 (0-0.9); NEUT % 77.6 % (16.0-70.0); PLATELET COUNT 245 TH/MM3 (150-450); RED BLOOD COUNT 3.47 MIL/MM3 (4.50-5.90); RED CELL DISTRIBUTION WIDTH 14.9 % (11.6-17.2)
[2017-08-03 12:02] LABS: BICARBONATE 29.9 MEQ/L (21.0-32.0); CALCIUM 7.8 MG/DL (8.5-10.1); CREATININE 0.79 MG/DL (0.60-1.30); MAGNESIUM 2.2 MG/DL (1.5-2.5)
[2017-08-03] MEDS: ACETAMINOPHEN/HYDROcodone 325 MG/5 MG TAB PO PRN (13:10)
[2017-08-03] MEDS ORDERED: POTASSIUM CHLORIDE 20 MEQ CONTROLLED RELEASE TAB PO ONE (14:30)
--- NOTE | 2017-08-03 15:11 | HHI.DS ---
Discharge Summary Admission Date Jul 28, 2017 at 05:09 Discharge Date: Aug 03, 2017 Admitting Diagnosis GI bleed, pneumonia, Anemia (1) Tobacco abuse ICD Code: Z72.0 - Tobacco use Diagnosis: Principal (2) Dyslipidemia ICD Code: E78.5 - Hyperlipidemia, unspecified Diagnosis: Secondary (3) Lactic acidosis ICD Code: E87.2 - Acidosis Diagnosis: Principal (4) History of CVA (cerebrovascular accident) ICD Code: Z86.73 - Personal history of transient ischemic attack (TIA), and cerebral infarction without residual deficits Diagnosis: Secondary (5) BPH (benign prostatic hyperplasia) ICD Code: N40.0 - Benign prostatic hyperplasia without lower urinary tract symptoms Diagnosis: Secondary (6) History of hypertension ICD Code: Z86.79 - Personal history of other diseases of the circulatory system Diagnosis: Principal (7) ASVD (arteriosclerotic vascular disease) ICD Code: I70.90 - Unspecified atherosclerosis Diagnosis: Principal (8) AAA (abdominal aortic aneurysm) without rupture ICD Code: I71.4 - Abdominal aortic aneurysm, without rupture Diagnosis: Principal (9) Respiratory failure ICD Code: J96.90 - Respiratory failure, unspecified, unspecified whether with hypoxia or hypercapnia Diagnosis: Principal (10) Hypotension ICD Code: I95.9 - Hypotension, unspecified Diagnosis: Principal Status: Acute (11) Pneumonia ICD Code: J18.9 - Pneumonia, unspecified organism Diagnosis: Principal Status: Acute (12) GI bleed ICD Code: K92.2 - Gastrointestinal hemorrhage, unspecified Diagnosis: Principal Status: Acute (13) Acute blood loss anemia ICD Code: D62 - Acute posthemorrhagic anemia Diagnosis: Principal (14) Septic shock ICD Code: A41.9 - Sepsis, unspecified organism; R65.21 - Severe sepsis with septic shock Diagnosis: Principal Procedures R IJ central line, EGD and loop recorder Brief History - From Admission This is a 71-year-old male. Date of admission 08/14/2017. Past medical history includes COPD, prior CVA, hypertension and dyslipidemia and BPH. He has known moderate to severe obstructive lung disease by pulmonary function tests. He follows with Dr. Morgan. He continues to smoke cigars. Prior history of cigarette use. He is recently been using ibuprofen. He is not on any blood thinners including aspirin or VKA or NOACs he presents to [facility] after having dark bowel movements and extrinsic abdominal pain. Initially in triage patient was hypertensive but after bowel movement and became hypotensive. Received 2 L normal saline, received vancomycin, aztreonam and 3 units PRBCs. Hemoglobin was around 5. Central line was placed in the right IJ. 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 Liver cyst. Bilateral renal cysts. Upon seen the patient in ED, patient is not complaining of any symptoms. Denies abdominal pain, shortness of breath. CBC/BMP: 08/03/17 1120 08/03/17 1120 Significant Findings Laboratory Tests Test 07/31/17 20:16 08/01/17 04:33 08/02/17 07:34 08/02/17 20:02 Hemoglobin 9.7 GM/DL (13.0-17.0) 10.2 GM/DL (13.0-17.0) Hematocrit 28.1 % (39.0-51.0) 30.1 % (39.0-51.0) Calcium Level 7.8 MG/DL (8.5-10.1) 8.0 MG/DL (8.5-10.1) Chloride Level 111 MEQ/L (98-107) Thyroid Stimulating Hormone 3rd Gen 3.760 uIU/ML (0.358-3.740) Cholesterol Level 110 MG/DL (120-200) HDL Cholesterol 30.8 MG/DL (40.0-60.0) Red Blood Count 3.33 MIL/MM3 (4.50-5.90) Neutrophils (%) (Auto) 71.0 % (16.0-70.0) Monocytes (%) (Auto) 12.8 % (0.0-8.0) Lymphocytes # (Auto) 0.8 TH/MM3 (1.0-4.8) Anion Gap 4 MEQ/L (5-15) Estimat Glomerular Filtration Rate 73 ML/MIN (>89) Test 08/03/17 11:20 Red Blood Count 3.47 MIL/MM3 (4.50-5.90) Hemoglobin 10.5 GM/DL (13.0-17.0) Hematocrit 31.7 % (39.0-51.0) Neutrophils (%) (Auto) 77.6 % (16.0-70.0) Lymphocytes (%) (Auto) 8.3 % (9.0-44.0) Monocytes (%) (Auto) 11.7 % (0.0-8.0) Lymphocytes # (Auto) 0.5 TH/MM3 (1.0-4.8) Calcium Level 7.8 MG/DL (8.5-10.1) Potassium Level 3.4 MEQ/L (3.5-5.1) Chloride Level 108 MEQ/L (98-107) Imaging Last Impressions Myocardial Perfusion Scan Nuc Med 07/31/17 0000 Signed Impressions: Service Date/Time: Monday, July 31, 2017 13:09 - CONCLUSION: Small fixed defect in the posterior basal segment. No findings of ischemia. RISK CATEGORY : Low (<1%% Annual Mortality Rate) Nile Grover MD Aorta CTA 07/28/17 0329 Signed Impressions: Service Date/Time: Friday, July 28, 2017 03:46 - CONCLUSION: 1. Extensive atherosclerotic plaquing of the aorta and iliac vessels with aneurysmal dilatation of the aorta and bilateral common iliac arteries. 2. No evidence for aortic dissection. 3. Hepatic and renal cyst. 4. Splenomegaly. 5. Emphysema, bilateral pulmonary infiltrates. Adalberto Mason MD Chest X-Ray 07/28/17 Signed Impressions: Service Date/Time: Friday, July 28, 2017 04:05 - CONCLUSION: Emphysema. Mild left upper lobe reticular nodular infiltrate seen. Adalberto Mason MD PE at Discharge GENERAL: 71-year-old male SKIN: Warm and dry. We'll perfused CARDIOVASCULAR: Irregularly irregular rate controlled. S1, S2. No S4. Without murmur. No JVD. RESPIRATORY: Decreased breath sounds equal bilaterally. GASTROINTESTINAL: Abdomen soft, non-tender, nondistended. Active bowel sounds are appreciated MUSCULOSKELETAL: Extremities without significant peripheral edema. No obvious deformities. NEUROLOGICAL: Motor grossly within normal limits. Five out of 5 muscle strength in the arms and legs. Conversant, O X 3. Hospital Course Shock likely hemorrhagic and lactic acidosis. Resolved after 5 units of packed RBC, patient has severe anemia secondary to acute blood loss. Stable blood counts GI bleed secondary to duodenal ulcers. EGD also shows gastritis. No recurrence of bleed avoid NSAIDs. Continue PPI troponin elevation likely secondary to anemia and shock. Stress test negative for ischemia status post cardiology evaluation Paroxysmal A. fib. RVR restarted Lopressor now CVR. Cardizem as needed. Status post loop recorder implantation. 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 No leak. Being monitored by PCP History of hypertension. Holding lisinopril 20 mg by mouth daily in light of hypotension. Community-acquired pneumonia with history of COPD and chronic respiratory failure -oxygen dependent. Stable discontinue IV aztreonam and Levaquin switched to by mouth Levaquin Fluid overload with normal LV function. Improving status post Lasix History of CVA. Stable. Anticoagulation when cleared by GI DVT - SCD/holding pharmacological prophylaxis in light of GI bleed PT recommends [facility] PT Pt Condition on Discharge: Stable Discharge Disposition: Disch w/ Home Health Serv Discharge Time: > 30 minutes Discharge Instructions DIET: Follow Instructions for: Heart Healthy Diet Activities you can perform: Regular-No Restrictions Activities to Avoid: Driving Follow up Referrals: Appointment for Follow Up @ GASTROENTEROLOGY Cardiology - 1 Week Cardiology @ DR DUNAWAY Gastroenterology - 1 Week PCP Follow-up - 1 Week PCP Follow-up @ DR MONTEJO Pulmonology - 1 Week Pulmonology @ DR MORGAN [facility]/ with [facility] New Medications: Levofloxacin (Levaquin) 750 Mg Tablet 750 MG PO DAILY for Infection, #2 TAB 0 Refills Walker with Front Wheels (Walker with Front Wheels) 1 Mis Mis EA .XX DIRECTED, #1 0 Refills Walker with Front Wheels (Walker with Front Wheels) 1 Mis Mis EA .XX DIRECTED, #1 0 Refills Budesonide Neb (Pulmicort Respules) 0.5 Mg/2 Ml Neb 0.5 MG NEB Q12HR NEB for Breathing Treatment, #60 ML Hydrocodone/Acetaminophen (Hydrocodone-Acetamin 5-325 mg) 5 Mg-325 Mg Tablet 1 TAB PO Q4H PRN for pain, #20 TAB Pantoprazole (Pantoprazole) 40 Mg Tab 40 MG PO Q12HR for Manage Heartburn, #60 TAB Continued Medications: Metoprolol Tartrate (Metoprolol Tartrate) 50 Mg Tab 50 MG PO BID, #60 TAB 0 Refills Oxygen (O2) (Oxygen (O2)) Device LITER CHELE.CANULA CONTINUOUS for Prevent Hypoxemia, #4 Oxygen Concentrator Portable Gaseous 4 L/min via Nasal Canula Continuous For 99 months Discontinued Medications: Lisinopril (Lisinopril) 20 Mg Tab 20 MG PO DAILY, #30 TAB 0 Refills Terazosin (Terazosin) 2 Mg Cap 2 MG PO HS, #30 CAP 0 Refills Cristiano Lin MD Aug 03, 2017 15:11
--- NOTE | 2017-08-03 15:22 | PD.CARD.PN ---
Subjective Subjective Remarks Follow up for Dr. Mejia Asked to see the patient for Afib with RVR After receiving his medications, heart rates now controlled Objective Medications Current Medications Medications (Trade) Dose Ordered Sig/Maulik Route Start Time Stop Time Status Last Admin (NS Flush) 2 ml UNSCH PRN IV FLUSH 07/28/17 06:30 (NS Flush) 2 ml BID IV FLUSH 07/28/17 09:00 08/02/17 08:21 (Tylenol) 650 mg Q6H PRN PO 07/28/17 06:30 ([place] 5-325 Mg) 1 tab Q4H PRN PO 07/28/17 06:30 08/03/17 13:10 (Morphine Inj) 2 mg Q2H PRN IV PUSH 07/28/17 06:30 08/03/17 05:55 (Zofran Inj) 4 mg Q6H PRN IV PUSH 07/28/17 06:30 Miscellaneous Information 1 Q361D XX 07/28/17 06:30 07/28/17 08:45 (Chlorhexidine 2% Cloth) Taper DAILY@04 TOP 07/29/17 04:00 07/25/18 03:59 (Chlorhexidine 2% Cloth) 3 pack UNSCH PRN TOP 07/28/17 06:30 ([place]-Colace) 1 tab BID PO 07/28/17 09:00 08/03/17 07:57 (Milk Of Magnesia Liq) 30 ml Q12H PRN PO 07/28/17 06:30 (Senokot) 17.2 mg Q12H PRN PO 07/28/17 06:30 (Dulcolax Supp) 10 mg DAILY PRN RECTAL 07/28/17 06:30 (Lactulose Liq) 30 ml DAILY PRN PO 07/28/17 06:30 08/03/17 11:36 (Albuterol Neb) 2.5 mg Q2HR NEB PRN NEB 07/28/17 06:30 08/02/17 01:18 (D50w (Vial) Inj) 50 ml UNSCH PRN IV PUSH 07/28/17 07:00 (Glucagon Inj) 1 mg UNSCH PRN OTHER 07/28/17 07:00 (NovoLIN R SUPPLEMENTAL SCALE) 1 Q6HR SQ 07/28/17 12:00 07/30/17 18:18 (Pulmicort Respule Neb) 0.5 mg Q12HR NEB NEB 07/28/17 08:00 08/03/17 08:12 (Brethine Inj) 1 mg UNSCH PRN SQ 07/31/17 07:00 (Protonix) 40 mg Q12HR PO 08/01/17 21:00 08/03/17 07:57 (Vasotec Inj) 1.25 mg Q6H PRN IV PUSH 08/01/17 17:00 (Levaquin) 750 mg DAILY PO 08/03/17 09:00 08/06/17 08:59 08/03/17 07:57 Sodium Chloride 1,000 ml @ 30 mls/hr Q24H IV 08/02/17 15:45 08/02/17 17:22 Vancomycin HCl 1000 mg/Sodium Chloride 250 ml @ 250 mls/hr GENERAL ACTIVITIES THERAPIST IV 08/02/17 15:45 08/05/17 15:44 (Betadine 5% Antisepsis Kit) 2 applic GENERAL ACTIVITIES THERAPIST EACH NARE 08/02/17 15:45 08/05/17 15:44 (Bactroban Nasal 2% Oint) 1 applic GENERAL ACTIVITIES THERAPIST NASAL 08/02/17 15:45 08/05/17 15:44 (Chlorhexidine 2% Cloth) 3 pack GENERAL ACTIVITIES THERAPIST TOPICAL 08/02/17 15:45 08/05/17 15:44 (Lopressor) 50 mg BID PO 08/03/17 09:45 08/03/17 09:46 Diltiazem HCl 125 mg/Sodium Chloride 125 ml @ 5 mls/hr TITRATE PRN IV 08/03/17 09:45 Vital Signs / I&O Vital Signs Date Time Temp Pulse Resp B/P (MAP) Pulse Ox O2 Delivery O2 Flow Rate FiO2 08/03/17 11:34 69 08/03/17 11:10 98.2 74 18 98/62 (74) 97 08/03/17 08:14 Nasal Cannula 2.00 08/03/17 08:02 Nasal Cannula 2.00 08/03/17 08:00 91 08/03/17 07:30 99.6 107 16 147/92 (110) 98 08/03/17 04:05 80 08/03/17 04:00 98.9 62 20 134/68 (90) 97 08/03/17 04:00 Nasal Cannula 2.00 08/03/17 01:38 19 08/03/17 00:00 98.6 119 20 132/61 (84) 94 08/03/17 00:00 Nasal Cannula 2.00 08/02/17 23:53 79 08/02/17 21:15 Nasal Cannula 2.00 08/02/17 21:07 Nasal Cannula 3.00 08/02/17 21:00 98.5 70 20 119/70 (86) 93 08/02/17 20:00 97 08/02/17 17:00 Nasal Cannula 2.00 08/02/17 17:00 98.5 98 18 130/68 (88) 95 I/O 08/02/17 08/02/17 08/02/17 08/03/17 08/03/17 08/03/17 07:00 15:00 23:00 07:00 15:00 23:00 Intake Total 480 ml 520 ml 600 ml Output Total 1000 ml 450 ml 1250 ml Balance -520 ml 70 ml -650 ml Intake Oral 480 ml 520 ml 600 ml Output Urine Total 1000 ml 450 ml 1250 ml # Bowel Movements 2 Physical Exam GENERAL: NAD, AAOx3 SKIN: Warm and dry. HEAD: Atraumatic. Normocephalic. EYES: Pupils equal and round. No scleral icterus. No injection or drainage. ENT: No nasal bleeding or discharge. Mucous membranes pink and moist. NECK: Trachea midline. No JVD. CARDIOVASCULAR: Irregularly irregular RESPIRATORY: No accessory muscle use. Clear to auscultation. Breath sounds equal bilaterally. GASTROINTESTINAL: Abdomen soft, non-tender, nondistended. Hepatic and splenic margins not palpable. MUSCULOSKELETAL: Extremities without clubbing, cyanosis, or edema. No obvious deformities. NEUROLOGICAL: Awake and alert. No obvious cranial nerve deficits. Motor grossly within normal limits. Five out of 5 muscle strength in the arms and legs. Normal speech. PSYCHIATRIC: Appropriate mood and affect; insight and judgment normal. Laboratory Laboratory Tests Test 08/02/17 20:02 08/03/17 11:20 White Blood Count 6.1 TH/MM3 6.0 TH/MM3 Red Blood Count 3.33 MIL/MM3 3.47 MIL/MM3 Hemoglobin 10.2 GM/DL 10.5 GM/DL Hematocrit 30.1 % 31.7 % Mean Corpuscular Volume 90.5 FL 91.3 FL Mean Corpuscular Hemoglobin 30.8 PG 30.3 PG Mean Corpuscular Hemoglobin Concent 34.0 % 33.2 % Red Cell Distribution Width 14.6 % 14.9 % Platelet Count 236 TH/MM3 245 TH/MM3 Mean Platelet Volume 7.3 FL 7.0 FL Neutrophils (%) (Auto) 71.0 % 77.6 % Lymphocytes (%) (Auto) 13.2 % 8.3 % Monocytes (%) (Auto) 12.8 % 11.7 % Eosinophils (%) (Auto) 2.6 % 2.1 % Basophils (%) (Auto) 0.4 % 0.3 % Neutrophils # (Auto) 4.3 TH/MM3 4.6 TH/MM3 Lymphocytes # (Auto) 0.8 TH/MM3 0.5 TH/MM3 Monocytes # (Auto) 0.8 TH/MM3 0.7 TH/MM3 Eosinophils # (Auto) 0.2 TH/MM3 0.1 TH/MM3 Basophils # (Auto) 0.0 TH/MM3 0.0 TH/MM3 CBC Comment DIFF FINAL DIFF FINAL Differential Comment Blood Urea Nitrogen 16 MG/DL 15 MG/DL Creatinine 1.01 MG/DL 0.79 MG/DL Random Glucose 94 MG/DL 84 MG/DL Calcium Level 8.0 MG/DL 7.8 MG/DL Magnesium Level 2.1 MG/DL 2.2 MG/DL Sodium Level 141 MEQ/L 143 MEQ/L Potassium Level 3.8 MEQ/L 3.4 MEQ/L Chloride Level 107 MEQ/L 108 MEQ/L Carbon Dioxide Level 29.6 MEQ/L 29.9 MEQ/L Anion Gap 4 MEQ/L 5 MEQ/L Estimat Glomerular Filtration Rate 73 ML/MIN 97 ML/MIN Assessment and Plan Problem List: (1) Troponin level elevated ICD Codes: R74.8 - Abnormal levels of other serum enzymes (2) Duodenal ulcer ICD Codes: K26.9 - Duodenal ulcer, unspecified as acute or chronic, without hemorrhage or perforation (3) Acute blood loss anemia ICD Codes: D62 - Acute posthemorrhagic anemia (4) Paroxysmal atrial fibrillation ICD Codes: I48.0 - Paroxysmal atrial fibrillation (5) NSVT (nonsustained ventricular tachycardia) ICD Codes: I47.2 - Ventricular tachycardia Assessment and Plan 1) Afib with RVR Now controlled on Lopressor 2) Stress test showing no ischemia 3) Loop recorder placed 4) No anticoagulation due to GI bleed 5) Follow up with Dr. Mejia in 1-2 weeks All Murphy DO Aug 03, 2017 15:22
--- NOTE | 2017-08-03 22:08 | HHI.PR ---
Subjective Remarks 72 YOWM with COPD, GIB, duodenal ulcers Breathing better Feels stronger Denies sob Objective Vital Signs Vital Signs Date Time Temp Pulse Resp B/P (MAP) Pulse Ox O2 Delivery O2 Flow Rate FiO2 08/03/17 11:34 69 08/03/17 11:10 98.2 74 18 98/62 (74) 97 08/03/17 08:14 Nasal Cannula 2.00 08/03/17 08:02 Nasal Cannula 2.00 08/03/17 08:00 91 08/03/17 07:30 99.6 107 16 147/92 (110) 98 08/03/17 04:05 80 08/03/17 04:00 98.9 62 20 134/68 (90) 97 08/03/17 04:00 Nasal Cannula 2.00 08/03/17 01:38 19 08/03/17 00:00 98.6 119 20 132/61 (84) 94 08/03/17 00:00 Nasal Cannula 2.00 08/02/17 23:53 79 I/O 08/02/17 08/02/17 08/02/17 08/03/17 08/03/17 08/03/17 07:00 15:00 23:00 07:00 15:00 23:00 Intake Total 480 ml 520 ml 600 ml 420 ml Output Total 1000 ml 450 ml 1250 ml 1400 ml Balance -520 ml 70 ml -650 ml -980 ml Intake Oral 480 ml 520 ml 600 ml 420 ml Output Urine Total 1000 ml 450 ml 1250 ml 1400 ml # Bowel Movements 2 2 Result Diagram: 08/03/17 1120 08/03/17 1120 Objective Remarks GENERAL: WBWN WM, NAD SKIN: Warm and dry. HEAD: Normocephalic. EYES: No scleral icterus. No injection or drainage. NECK: Supple, trachea midline. No JVD or lymphadenopathy. CARDIOVASCULAR: Regular rate and rhythm without murmurs, gallops, or rubs. RESPIRATORY: Breath sounds equal bilaterally. No accessory muscle use. GASTROINTESTINAL: Abdomen soft, non-tender, nondistended. MUSCULOSKELETAL: No cyanosis, or edema. BACK: Nontender without obvious deformity. No CVA tenderness. A/P Assessment and Plan COPD GIB Anemia HTN PLAN: He is anxious to go home Monitor H/H Supplement 02 Aerosol nebinna HAN palsidney for home Rony Kahn MD Aug 03, 2017 22:08
[2017-08-06] MEDS ORDERED: WALKER WHEELS/F1 MIS (11:05)
== END 2017-08-03 16:31 | disposition home health service (06) | DRG 981 ==
LOC: PHED 01:49 → PHEDA 05:09 → N03A 07:47 → N04A 08-01 20:00
PROVIDERS: ADMIT Internal Medicine; ATTEND Internal Medicine
PROC: 05HM33Z Insertion of Infusion Device into Right Internal Jugular Vein, Percutaneous Approach (ICD-10-PCS; principal; 2017-07-28)
PROC: 30233N1 Transfusion of Nonautologous Red Blood Cells into Peripheral Vein, Percutaneous Approach (ICD-10-PCS; 2017-07-28)
PROC: 0W3P8ZZ Control Bleeding in Gastrointestinal Tract, Via Natural or Artificial Opening Endoscopic (ICD-10-PCS; 2017-07-29)
PROC: 0DB98ZX Excision of Duodenum, Via Natural or Artificial Opening Endoscopic, Diagnostic (ICD-10-PCS; 2017-07-29)
PROC: 0JH602Z Insertion of Monitoring Device into Chest Subcutaneous Tissue and Fascia, Open Approach (ICD-10-PCS; 2017-08-02)
DX: K26.4 Chronic or unspecified duodenal ulcer with hemorrhage (principal); J18.9 Pneumonia, unspecified organism; J96.21 Acute and chronic respiratory failure with hypoxia; R57.8 Other shock; I47.2 Ventricular tachycardia; N17.9 Acute kidney failure, unspecified; I74.5 Embolism and thrombosis of iliac artery; L89.159 Pressure ulcer of sacral region, unspecified stage; E87.0 Hyperosmolality and hypernatremia; E87.2 Acidosis; D62 Acute posthemorrhagic anemia; N28.1 Cyst of kidney, acquired; R16.1 Splenomegaly, not elsewhere classified; K29.70 Gastritis, unspecified, without bleeding; I10 Essential (primary) hypertension; E78.5 Hyperlipidemia, unspecified; Z86.73 Personal history of transient ischemic attack (TIA), and cerebral infarction without residual deficits; F17.290 Nicotine dependence, other tobacco product, uncomplicated; I71.4 Abdominal aortic aneurysm, without rupture; R91.1 Solitary pulmonary nodule; K76.89 Other specified diseases of liver; I25.10 Atherosclerotic heart disease of native coronary artery without angina pectoris; I72.3 Aneurysm of iliac artery; J43.9 Emphysema, unspecified; Z99.81 Dependence on supplemental oxygen; E88.09 Other disorders of plasma-protein metabolism, not elsewhere classified; R73.9 Hyperglycemia, unspecified; N40.1 Benign prostatic hyperplasia with lower urinary tract symptoms; R35.0 Frequency of micturition; R74.8 Abnormal levels of other serum enzymes; I48.0 Paroxysmal atrial fibrillation; E87.70 Fluid overload, unspecified
CPT/HCPCS: 33282; 36430; 36556; 71045; 71275; 74174; 78452; 80048; 80053; 80061; 81001; 82948; 83605; 83690; 83735; 84100; 84132; 84155; 84443; 84484; 85014; 85018; 85025; 85610; 85730; 86850; 86900; 86901; 86920; 87040; 87086; 87449; 87641; 88305; 93005; 93017; 93306; 94150; 94640; 94664; 96361; 96365; 96375; 96376; A9502; C1764; C9113; J0131; J1940; J1956; J2270; J2370; J2785; J3370; J3475; J3480; J7030; J7040; J7050; J7613; J7626; P9016; Q9967